=== PATIENT | female | born 1945 | race Caucasian/White ===

== ENCOUNTER 2018-11-09 14:14 | Observation (INO) | payer MEDICARE, BC ==
--- NOTE | 2018-11-09 14:57 | ED ---
General Adult HPI - General Source: patient Mode of arrival: ambulatory Limitations: no limitations <Chris Bravo - Last Filed: 11/09/18 16:58> <Adrian Jo - Last Filed: 11/09/18 18:13> - General Chief complaint: Psychiatric Symptoms Stated complaint: general - History of Present Illness Initial comments: Dictation was produced using [employer] dictation software. please excuse any grammatical, word or spelling errors. Chief Complaint: 73-year-old female with with no significant past medical history presents with altered mental status. History of Present Illness: Old female who is brought in by her daughter. Apparently according to note written by daughter patient has been having paranoid behavior for approximately 3 weeks. Patient has allegedly been hearing voices for approximately 2 weeks. She has not been using phones. She is worried somebody maybe listening. She is also saying that family members are however did not. She does not want to seek medical treatment of her patient was provided to get a checkup. Patient is not taking any medications. The ROS documented in this emergency department record has been reviewed and confirmed by me. Those systems with pertinent positive or negative responses have been documented in the HPI. All other systems are other negative and/or noncontributory. (Chris Bravo) - Related Data Home Medications Medication Instructions Recorded Confirmed Multivitamins, Thera [Multivitamin 1 tab PO DAILY 11/09/18 11/09/18 (formulary)] Allergies Allergy/AdvReac Type Severity Reaction Status Date / Time No Known Allergies Allergy Verified 11/09/18 16:18 Review of Systems ROS Other: All systems not noted in ROS Statement are negative. <Chris Bravo - Last Filed: 11/09/18 16:58> ROS Other: All systems not noted in ROS Statement are negative. <Adrian Jo - Last Filed: 11/09/18 18:13> ROS Statement: Those systems with pertinent positive or pertinent negative responses have been documented in the HPI. Past Medical History Past Medical History: Thyroid Disorder History of Any Multi-Drug Resistant Organisms: None Reported Past Surgical History: Appendectomy, Hysterectomy Past Psychological History: No Psychological Hx Reported Smoking Status: Current every day smoker Past Alcohol Use History: None Reported, Rare Past Drug Use History: None Reported <Chris Bravo - Last Filed: 11/09/18 16:58> General Exam Limitations: no limitations <Chris Bravo - Last Filed: 11/09/18 16:58> <Adrian Jo - Last Filed: 11/09/18 18:13> - General Exam Comments Initial Comments: PHYSICAL EXAM: General Impression: Alert and oriented x3, not in acute distress HEENT: Normocephalic atraumatic, extra-ocular movements intact, pupils equal and reactive to light bilaterally, mucous membranes moist. Cardiovascular: Heart regular rate and rhythm, S1&S2 audible, no murmurs, rubs or gallops Chest: Lungs clear to auscultation bilaterally, no rhonchi, no wheeze, no rales Abdomen: Bowel sounds present, abdomen soft, non-tender, non-distended, no organomegaly Musculoskeletal: Pulses present and equal in all extremities, no peripheral edema Motor: Power 5/5 bilaterally, no focal deficits noted Neurological: CN II-XII grossly intact, no focal motor or sensory deficits noted Skin: Intact with no visualized rashes (Chris Bravo) Vital Signs 11/09/18 14:26 Temperature 98.1 F Pulse Rate 77 Respiratory 18 Rate Blood Pressure 136/77 O2 Sat by Pulse 96 Oximetry Medical Decision Making - Lab Data Result diagrams: 11/09/18 15:21 11/09/18 15:21 <Chris Bravo - Last Filed: 11/09/18 16:58> - Lab Data Result diagrams: 11/09/18 15:21 11/09/18 15:21 - Radiology Data Radiology results: report reviewed (CT brain chest x-ray negative for acute disease), image reviewed <Adrian Jo - Last Filed: 11/09/18 18:13> - Medical Decision Making ED course: 73-year-old female presents with paranoid behavior. As upon arrival are within acceptable limits.Laboratory evaluation obtained. CBC unremarkable, metabolic panel remarkable, rapid urine drug screen negative, serum alcohol negative. Urinalysis shows 25 WBCs. There is rare bacteria. Patient not having any urinary symptoms. Urine sent for culture. Computed tomography scan of the head and chest x-ray shows no acute processes. Patient medically cleared for EPS evaluation. Patient has no complaints at this time. Patient not displaying any paranoid behavior to me. Daughter understands that if she wants oral EPS evaluation against patient's will that dictation will need to be signed. An attempt is made with EPS to perform evaluation with patient cooperation. Patient care sent out to oncoming physician for follow-up of EPS recommendations. EKG interpretation: Ventricular rate 72, normal sinus rhythm,. Interval 136, QS 80, QTc 427. No [place] prolongation, no QTC prolongation, no ST or T-wave changes noted. . Overall, this EKG is unremarkable (Chris Bravo) 73 female the ER for evaluation with altered mental status. Patient brought in for acute psychosis has urinary tract infection we'll treat UTI and monitor mental state. Patient to be admitted (Adrian Jo) - Lab Data Lab Results 11/09/18 11/09/18 11/09/18 Range/Units 15:21 15:21 15:21 WBC 6.9 (3.8-10.6) k/uL RBC 5.10 (3.80-5.40) m/uL Hgb 15.5 (11.4-16.0) gm/dL Hct 46.9 H (34.0-46.0) % MCV 91.9 (80.0-100.0) fL MCH 30.5 (25.0-35.0) pg MCHC 33.1 (31.0-37.0) g/dL RDW 13.2 (11.5-15.5) % Plt Count 282 (150-450) k/uL Neutrophils % 59 % Lymphocytes % 31 % Monocytes % 6 % Eosinophils % 1 % Basophils % 1 % Neutrophils # 4.1 (1.3-7.7) k/uL Lymphocytes # 2.1 (1.0-4.8) k/uL Monocytes # 0.4 (0-1.0) k/uL Eosinophils # 0.1 (0-0.7) k/uL Basophils # 0.0 (0-0.2) k/uL Sodium 139 (137-145) mmol/L Potassium 3.9 (3.5-5.1) mmol/L Chloride 103 (98-107) mmol/L Carbon Dioxide 24 (22-30) mmol/L Anion Gap 12 mmol/L BUN 11 (7-17) mg/dL Creatinine 0.63 (0.52-1.04) mg/dL Est GFR (CKD-EPI)AfAm >90 (>60 ml/min/1.73 sqM) Est GFR (CKD-EPI)NonAf 90 (>60 ml/min/1.73 sqM) Glucose 90 (74-99) mg/dL Calcium 9.8 (8.4-10.2) mg/dL TSH 3.140 (0.465-4.680) mIU/L Urine Color Urine Appearance (Clear) Urine pH (5.0-8.0) Ur Specific [place] (1.001-1.035) Urine Protein (Negative) Urine Glucose (UA) (Negative) Urine Ketones (Negative) Urine Blood (Negative) Urine Nitrite (Negative) Urine Bilirubin (Negative) Urine Urobilinogen (<2.0) mg/dL Ur Leukocyte Esterase (Negative) Urine RBC (0-5) /hpf Urine WBC (0-5) /hpf Ur Squamous Epith Cells (0-4) /hpf Urine Bacteria (None) /hpf Hyaline Casts (0-2) /lpf Urine Mucus (None) /hpf Urine Opiates Screen (NotDetected) Ur Oxycodone Screen (NotDetected) Urine Methadone Screen (NotDetected) Ur Propoxyphene Screen (NotDetected) Ur Barbiturates Screen (NotDetected) U Tricyclic Antidepress (NotDetected) Ur Phencyclidine Scrn (NotDetected) Ur Amphetamines Screen (NotDetected) U Methamphetamines Scrn (NotDetected) U Benzodiazepines Scrn (NotDetected) Urine Cocaine Screen (NotDetected) U Marijuana (THC) Screen (NotDetected) Serum Alcohol <10 mg/dL 11/09/18 Range/Units 15:36 WBC (3.8-10.6) k/uL RBC (3.80-5.40) m/uL Hgb (11.4-16.0) gm/dL Hct (34.0-46.0) % MCV (80.0-100.0) fL MCH (25.0-35.0) pg MCHC (31.0-37.0) g/dL RDW (11.5-15.5) % Plt Count (150-450) k/uL Neutrophils % % Lymphocytes % % Monocytes % % Eosinophils % % Basophils % % Neutrophils # (1.3-7.7) k/uL Lymphocytes # (1.0-4.8) k/uL Monocytes # (0-1.0) k/uL Eosinophils # (0-0.7) k/uL Basophils # (0-0.2) k/uL Sodium (137-145) mmol/L Potassium (3.5-5.1) mmol/L Chloride (98-107) mmol/L Carbon Dioxide (22-30) mmol/L Anion Gap mmol/L BUN (7-17) mg/dL Creatinine (0.52-1.04) mg/dL Est GFR (CKD-EPI)AfAm (>60 ml/min/1.73 sqM) Est GFR (CKD-EPI)NonAf (>60 ml/min/1.73 sqM) Glucose (74-99) mg/dL Calcium (8.4-10.2) mg/dL TSH (0.465-4.680) mIU/L Urine Color Yellow Urine Appearance Cloudy H (Clear) Urine pH 5.5 (5.0-8.0) Ur Specific [place] 1.016 (1.001-1.035) Urine Protein Trace H (Negative) Urine Glucose (UA) Negative (Negative) Urine Ketones 2+ H (Negative) Urine Blood Trace H (Negative) Urine Nitrite Negative (Negative) Urine Bilirubin Negative (Negative) Urine Urobilinogen 2.0 (<2.0) mg/dL Ur Leukocyte Esterase Moderate H (Negative) Urine RBC 4 (0-5) /hpf Urine WBC 25 H (0-5) /hpf Ur Squamous Epith Cells 10 H (0-4) /hpf Urine Bacteria Rare H (None) /hpf Hyaline Casts 73 H (0-2) /lpf Urine Mucus Moderate H (None) /hpf Urine Opiates Screen Not Detected (NotDetected) Ur Oxycodone Screen Not Detected (NotDetected) Urine Methadone Screen Not Detected (NotDetected) Ur Propoxyphene Screen Not Detected (NotDetected) Ur Barbiturates Screen Not Detected (NotDetected) U Tricyclic Antidepress Not Detected (NotDetected) Ur Phencyclidine Scrn Not Detected (NotDetected) Ur Amphetamines Screen Not Detected (NotDetected) U Methamphetamines Scrn Not Detected (NotDetected) U Benzodiazepines Scrn Not Detected (NotDetected) Urine Cocaine Screen Not Detected (NotDetected) U Marijuana (THC) Screen Not Detected (NotDetected) Serum Alcohol mg/dL Disposition <Chris Bravo - Last Filed: 11/09/18 16:58> <Adrian Jo - Last Filed: 11/09/18 18:13> Clinical Impression: Acute psychosis, UTI (urinary tract infection), Altered mental state Disposition: ADMITTED IP TO THIS HOSP Condition: Good Referrals: None,Stated [Primary Care Provider] - 1-2 days
[2018-11-09 15:33] LABS: Basophils % (A) 1 %; Eosinophils # (A) 0.1 k/uL (0-0.7); Eosinophils % (A) 1 %; HCT 46.9 % (34.0-46.0); HGB 15.5 gm/dL (11.4-16.0); Lymphocytes # (A) 2.1 k/uL (1.0-4.8); Lymphocytes % (A) 31 %; MCH 30.5 pg (25.0-35.0); MCHC 33.1 g/dL (31.0-37.0); MCV 91.9 fL (80.0-100.0); Mean Platelet Volume 6.7; Monocytes # (A) 0.4 k/uL (0-1.0); Monocytes % (A) 6 %; Neutrophils # (A) 4.1 k/uL (1.3-7.7); Neutrophils % (A) 59 %; Platelet Count 282 k/uL (150-450); RDW 13.2 % (11.5-15.5); WBC 6.9 k/uL (3.8-10.6)
--- NOTE | 2018-11-09 15:40 | XR ---
EXAMINATION TYPE: XR chest 2V DATE OF EXAM: 11/09/2018 COMPARISON: NONE HISTORY: Chest pain. TECHNIQUE: Frontal and lateral views of the chest are obtained. FINDINGS: There is no focal air space opacity, pleural effusion, or pneumothorax seen. The cardiac silhouette size is within normal limits. The osseous structures are intact. IMPRESSION: No acute cardiopulmonary process.
[2018-11-09 15:47] LABS: Alcohol <10 mg/dL; Anion Gap 12 mmol/L; Blood Urea Nitrogen 11 mg/dL (7-17); Calcium 9.8 mg/dL (8.4-10.2); Carbon Dioxide 24 mmol/L (22-30); Chloride 103 mmol/L (98-107); Glucose 90 mg/dL (74-99); Potassium 3.9 mmol/L (3.5-5.1); Sodium 139 mmol/L (137-145)
--- NOTE | 2018-11-09 15:52 | CT ---
EXAMINATION TYPE: CT brain wo con DATE OF EXAM: 11/09/2018 HISTORY: Altered mental status x [address] DLP: 1095.4 mGycm. Automated Exposure Control for Dose Reduction was Utilized. TECHNIQUE: CT scan of the head is performed without contrast. COMPARISON: None. FINDINGS: There is no acute intracranial hemorrhage or midline shift identified. Ventricles and sul ci are normal in size. Gonzalez-white matter differentiation is maintained. The globes are intact and th e visualized sinuses are clear. The calvarium is intact. IMPRESSION: No acute intracranial hemorrhage or midline shift. Unremarkable study.
[2018-11-09 15:59] LABS: Appearance,Urine Cloudy (Clear); Bacteria,Urine Rare /hpf; Bilirubin,Urine Negative (Negative); Blood,Urine Trace (Negative); Color,Urine Yellow; Glucose,Urine (UA) Negative (Negative); Hyaline Casts,Urine 73 /lpf (0-2); Ketones,Urine 2+ (Negative); Leukocyte Esterase,Urine Moderate (Negative); Mucus,Urine Moderate /hpf; Nitrite,Urine Negative (Negative); PH, Urine 5.5 (5.0-8.0); Protein,Urine Trace (Negative); RBC,Urine 4 /hpf (0-5); Specific Gravity,Urine 1.016 (1.001-1.035); Squamous Epithelial Cell,Urine 10 /hpf (0-4); WBC,Urine 25 /hpf (0-5)
[2018-11-09 16:04] LABS: Amphetamine Screen,Urine Not Detected (NotDetected); Barbiturate Screen,Urine Not Detected (NotDetected); Benzodiazepines Screen,Urine Not Detected (NotDetected); Cocaine Screen,Urine Not Detected (NotDetected); Methadone Screen, Urine Not Detected (NotDetected); Opiate Screen,Urine Not Detected (NotDetected); Oxycodone Screen, Urine Not Detected (NotDetected); Phencyclidine Screen,Urine Not Detected (NotDetected); Tricyclic Antidepressant,Urine Not Detected (NotDetected); Urn Cannabinoid Scrn Not Detected (NotDetected)
[2018-11-09] MEDS ORDERED: cefTRIAXone 2,000 MG in SODIUM CHLORIDE 0.9% 100 ML IVPB STA (18:05)
[2018-11-09] MEDS ORDERED: SODIUM CHLORIDE 0.9% 1,000 ML IV ONE (18:06)
[2018-11-09 20:33] VITALS: RESP 16
[2018-11-10] MEDS ORDERED: NALOXONE 0.4 MG/ML 1 ML VIAL IV PRN (00:33)
--- NOTE | 2018-11-10 00:41 | P.HPIM ---
History of Present Illness H&P Date: 11/09/18 Chief Complaint: auditory hallucination 73-year-old female with no significant past medical history. Patient doesn't have a regular doctor. Patient was brought into the hospital due to confusion. History was obtained by talking to the patient and her daughter. It seems like the patient has been having auditory hallucinations for around a month now where she claims that she is hearing her niece talking to her about certain family situation does not have any yet but it might happen like abducting her kids. And then she refers to some machine that's causing these voices. Patient believes that he is voices are real but denies any suicidal or homicidal ideation. She has never acted upon any of these voices when they tell her to do things. She has never been diagnosed with any mental health problems. Patient was initially reluctant for mental health evaluation due to concerns regarding driving and consent as she thought she might lose dose. But then later she was agreeable for psychiatry evaluation if needed. Patient denies any physical symptoms or complaints she denies any urinary symptoms, she denies any chest pain trouble breathing any headache changes in vision she denies any dizziness lightheadedness denies any abdominal pain nausea or vomiting. In the ER she was diagnosed with UTI and was given a dose of Rocephin, however her urine sample is dirty and was not clean-catch and patient denies any urinary symptoms. Rocephin will not be continued this for. Follow-up urine culture Review of Systems Pertinent positives as noted in HPI. All other systems were reviewed and are negative Past Medical History Past Medical History: Thyroid Disorder Additional Past Medical History / Comment(s): bronchitis, vit b deficiency, stage 3 cervical cancer-sx only, in past took meds for thyroid but was taken off it 15 years ago, upper/lower dental bridges History of Any Multi-Drug Resistant Organisms: None Reported Past Surgical History: Appendectomy, Hysterectomy Past Anesthesia/Blood Transfusion Reactions: No Reported Reaction Past Psychological History: No Psychological Hx Reported Smoking Status: Current some day smoker Past Alcohol Use History: Rare Additional Past Alcohol Use History / Comment(s): started smoking at age 36 a pack will last 2 weeks Past Drug Use History: None Reported - Past Family History Mother Family Medical History: Cancer Additional Family Medical History / Comment(s): colon cancer Father Family Medical History: Cancer Additional Family Medical History / Comment(s): lung cancer Medications and Allergies Home Medications Medication Instructions Recorded Confirmed Type Multivitamins, Thera [Multivitamin 1 tab PO DAILY 11/09/18 11/09/18 History (formulary)] Allergies Allergy/AdvReac Type Severity Reaction Status Date / Time No Known Allergies Allergy Verified 11/09/18 16:18 Physical Exam Vitals: Vital Signs Temp Pulse Pulse Resp BP BP Pulse Ox 11/09/18 23:00 98.0 F 86 16 118/70 93 L 11/09/18 20:32 98.1 F 77 16 146/79 95 11/09/18 18:54 97.9 F 75 18 144/73 95 11/09/18 14:26 98.1 F 77 18 136/77 96 Intake and Output 11/09/18 11/09/18 11/10/18 14:59 22:59 06:59 Intake Total 400 Balance 400 Intake: Oral 400 Other: # Voids 2 Weight 70.307 kg 67.5 kg Constitutional: No acute distress, conversant, pleasant Eyes: Anicteric sclerae, moist conjunctiva, no lid-lag Pupils equal round reactive to light ENMT: NC/AT Oropharynx clear, no erythema, exudates Neck: Supple, FROM, no masses, or JVD No carotid bruits No thyromegaly Lungs: Clear to auscultation Clear to percussion Normal respiratory effort, no accessory muscle use Cardiovascular: Heart regular in rate and rhythm, No murmurs, gallops, or rubs No peripheral edema Abdominal: Soft Nontender, no guarding, rebound or rigidity Abdomen moving with respiration Normoactive bowel sounds No hepatomegaly, No splenomegaly No palpable mass No abdominal wall hernia noted Skin: Normal temperature, tone, texture, turgor No induration No subcutaneous nodules No rash, lesions No ulcers Extremities: No digital cyanosis No clubbing Pedal pulses intact and symmetrical Radial pulses intact and symmetrical No calf tenderness Psychiatric: Alert and oriented to person, place and time Appropriate affect fair judgment Neuro Muscles Strength 5/5 in all 4 extremities Sensation to light touch grossly present throughout Cranial nerves II-XII grossly intact No focal sensory deficits Lymphatics: no palpable cervical or supraclavicular , or inguinal lymph nodes Results CBC & Chem 7: 11/09/18 15:21 11/09/18 15:21 Labs: Abnormal Lab Results - Last 24 Hours (Table) 12/13/18 12/13/18 Range/Units 15:21 15:36 Hct 46.9 H (34.0-46.0) % Urine Appearance Cloudy H (Clear) Urine Protein Trace H (Negative) Urine Ketones 2+ H (Negative) Urine Blood Trace H (Negative) Ur Leukocyte Esterase Moderate H (Negative) Urine WBC 25 H (0-5) /hpf Ur Squamous Epith Cells 10 H (0-4) /hpf Urine Bacteria Rare H (None) /hpf Hyaline Casts 73 H (0-2) /lpf Urine Mucus Moderate H (None) /hpf Assessment and Plan Assessment: 73-year-old female with no significant past medical history admitted under observation for possible UTI with anticipated length of stay of less than 48 hours. Patient reported to me but a hallucination and the daughter confirmed that that was the reason for bringing her to the hospital due to auditory hallucinations and some confusion. Upon reviewing patient labs and interviewing the patient I do not think the patient has urinary tract infection , her urine sample was not clean catch. She received a dose of Rocephin in the ER. I will discontinue that and wait for final urine culture. We'll also monitor the patient for any symptoms of fevers or any elevated white count. Patient will benefit from psychiatry evaluation Plan: Auditory hallucinations Psych eval Fall precautions Patient denies any suicidal or homicidal ideation Suspected UTI Urine sample was not a clean catch Await final urine culture results No leukocytosis no fever Patient received 1 dose of Rocephin, will be discontinued Continue to monitor patient for now Patient is completely asymptomatic denies any urinary symptoms DVT prophylaxis Lovenox subcu Surrogate decision-maker: Patient daughter CODE STATUS: Full code Discussed with: Patient, ER, RN Anticipated discharge: <[address]: Pending psych eval A total of 60 minutes was spent on the care of this complex patient more than 50 % of the time was spent in counseling and care coordination.
[2018-11-10 06:21] VITALS: BP 131/74; PULSE 76; TEMP 97.6
[2018-11-10] MEDS ORDERED: ENOXAPARIN 40 MG/0.4 ML SYRINGE SQ SCH (09:00)
--- NOTE | 2018-11-10 12:57 | P.CN ---
Psychiatric Consult - . Consult date: 11/10/18 Consult:: 11/10/18 12:31 hallucinations Assessment and Plan Assessment: 73-year-old female with no significant past medical history. Patient doesn't have a regular doctor. Patient was brought into the hospital due to confusion. History was obtained by talking to the patient and her daughter. It seems like the patient has been having auditory hallucinations for around a month now where she claims that she is hearing her niece talking to her about certain family situation does not have any yet but it might happen like abducting her kids. And then she refers to some machine that's causing these voices. Patient believes that he is voices are real but denies any suicidal or homicidal ideation. She has never acted upon any of these voices when they tell her to do things. She has never been diagnosed with any mental health problems. Patient was initially reluctant for mental health evaluation due to concerns regarding driving and consent as she thought she might lose dose. But then later she was agreeable for psychiatry evaluation if needed. Patient denies any physical symptoms or complaints she denies any urinary symptoms, she denies any chest pain trouble breathing any headache changes in vision she denies any dizziness lightheadedness denies any abdominal pain nausea or vomiting. In the ER she was diagnosed with UTI and was given a dose of Rocephin, however her urine sample is dirty and was not clean-catch and patient denies any urinary symptoms. Rocephin will not be continued this for. Follow-up urine culture Past Medical History Past Medical History: Thyroid Disorder Additional Past Medical History / Comment(s): bronchitis, vit b deficiency, stage 3 cervical cancer-sx only, in past took meds for thyroid but was taken off it 15 years ago, upper/lower dental bridges History of Any Multi-Drug Resistant Organisms: None Reported Past Surgical History: Appendectomy, Hysterectomy Past Anesthesia/Blood Transfusion Reactions: No Reported Reaction Past Psychological History: No Psychological Hx Reported Smoking Status: Current some day smoker Past Alcohol Use History: Rare Additional Past Alcohol Use History / Comment(s): started smoking at age 36 a pack will last 2 weeks Past Drug Use History: None Reported - Past Family History Mother Family Medical History: Cancer Additional Family Medical History / Comment(s): colon cancer Father Family Medical History: Cancer Additional Family Medical History / Comment(s): lung cancer Medications and Allergies Home Medications Medication Instructions Recorded Confirmed Type Multivitamins, Thera [Multivitamin 1 tab PO DAILY 11/09/18 11/09/18 History (formulary)] Allergies Allergy/AdvReac Type Severity Reaction Status Date / Time No Known Allergies Allergy Verified 11/09/18 16:18 Mental Status Examination - The patient presents alert, pleasant, and cooperative. There calmly seated without any agitated behavior. [She] reports that [her] mood is good. Affect is congruent and euthymic. [She] deny having any suicidal or homicidal ideation intent or plan. [She] denies any auditory or visual hallucinations. There is no evidence of any delusional thought content. [Her] thought process is linear and goal-directed. [Her] speech is fluent and nonpressured. [Her] memory and concentration is grossly intact for the purposes of this session. Psychiatric impression: Delirium primarily due to urinary tract infection which has cleared now Psychiatric recommendations: No psychiatric medications indicated at this time. The filling in the treatment of urinary tract infection for further resolve any confusion this woman may have but one I interviewed her she was oriented person place and time not suicidal or homicidal. When medically stable she may be discharged from a psychiatric standpoint Thank you for the consult Rom Middleton D.O. PhD (1) Hallucinations Current Visit: Yes Status: Resolved Code(s): R44.3 - HALLUCINATIONS, UNSPECIFIED SNOMED Code(s): 0672044 Time with Patient: Less than 30
--- NOTE | 2018-11-10 13:17 | P.DS ---
Providers Date of admission: 11/09/18 18:12 Expected date of discharge: 11/10/18 Attending physician: Teodoro Mace MD Consults: 11/10/18 00:34 Consult Physician Routine Consulting Provider: Rom Middleton Consult Reason/Comments: auditory hallucination Do you want consulting provider notified?: Yes Primary care physician: Stated None Hospital Course: This is a 73-year-old female with no significant past medical history who presented to the hospital with intermittent hallucination for the past 1 month and reporting that she is hearing her niece voice in her right ear. Patient was brought in by her daughter to the emergency room. In the emergency room patient was found to be hemodynamically stable. Initial urinalysis was positive that he was a grossly contaminated sample. This was not a clean catch urine. Patient was given one-time dose of Rocephin. Urine culture sent and pending. Patient was admitted to the hospital for further evaluation. Most of her lab work was within acceptable range. Patient was seen and evaluated by psychiatry and was cleared for discharge. I discussed with her daughter over the phone the patient's condition. Patient is not a risk to wander and does not represent any risk to herself. She will be discharged home in a stable condition. She will finish 3 days course of Keflex as a precaution even though it's very highly unlikely that the patient has a UTI given no fever and no leukocytosis and no symptoms. She will be discharged in a stable condition. Please refer to the electronic chart for further details about this hospitalization. Patient Condition at Discharge: Fair Plan - Discharge Summary New Discharge Prescriptions: New Cephalexin [Keflex] 500 mg PO Q8HR #9 cap No Action Multivitamins, Thera [Multivitamin (formulary)] 1 tab PO DAILY Discharge Medication List Multivitamins, Thera [Multivitamin (formulary)] 1 tab PO DAILY 11/09/18 [History ] Cephalexin [Keflex] 500 mg PO Q8HR #9 cap 11/10/18 [Rx] Follow up Appointment(s)/Referral(s): None,Stated [Primary Care Provider] - 3 Days Discharge Disposition: HOME SELF-CARE
== END 2018-11-10 14:09 | disposition home or self-care (01) ==
LOC: EC 14:14 → 4MS4W 18:12
PROVIDERS: ADMIT Family Medicine; ATTEND Family Medicine
DX: F05 Delirium due to known physiological condition (principal); N39.0 Urinary tract infection, site not specified; R44.0 Auditory hallucinations; E07.9 Disorder of thyroid, unspecified; F17.210 Nicotine dependence, cigarettes, uncomplicated; E53.9 Vitamin B deficiency, unspecified; Z90.710 Acquired absence of both cervix and uterus; Z90.49 Acquired absence of other specified parts of digestive tract; Z87.09 Personal history of other diseases of the respiratory system; Z85.41 Personal history of malignant neoplasm of cervix uteri; Z80.0 Family history of malignant neoplasm of digestive organs; Z80.1 Family history of malignant neoplasm of trachea, bronchus and lung
CPT/HCPCS: 96361 ×2; 96366; 96372; 96365; 99285; 36415; 93005; 80048; 84443; 85025; 81001; 87040; 80306; 87086; 71046; 70450; G0378 ×2; G0480; J0696; J1650; 80320

== ENCOUNTER 2019-02-15 17:16 | Inpatient (IN) | payer MEDICARE, BC ==
[2019-02-15 17:51] LABS: Appearance,Urine Clear (Clear); Bilirubin,Urine Negative (Negative); Blood,Urine Negative (Negative); Color,Urine Light Yellow; Glucose,Urine (UA) Negative (Negative); Ketones,Urine Negative (Negative); Leukocyte Esterase,Urine Negative (Negative); Nitrite,Urine Negative (Negative); Protein,Urine Negative (Negative); Specific Gravity,Urine 1.004 (1.001-1.035); Urobilinogen,Urine <2.0 mg/dL (<2.0)
[2019-02-15 18:01] LABS: Amphetamine Screen,Urine Not Detected (NotDetected); Barbiturate Screen,Urine Not Detected (NotDetected); Benzodiazepines Screen,Urine Not Detected (NotDetected); Cocaine Screen,Urine Not Detected (NotDetected); Methadone Screen, Urine Not Detected (NotDetected); Opiate Screen,Urine Not Detected (NotDetected); Oxycodone Screen, Urine Not Detected (NotDetected); Phencyclidine Screen,Urine Not Detected (NotDetected); Tricyclic Antidepressant,Urine Not Detected (NotDetected); Urn Cannabinoid Scrn Not Detected (NotDetected)
--- NOTE | 2019-02-15 18:07 | ED ---
Psych HPI - General Chief Complaint: Psychiatric Symptoms Stated Complaint: mental health Time Seen by Provider: 02/15/19 17:31 Source: police, RN notes reviewed, old records reviewed Mode of arrival: ambulatory - History of Present Illness Initial Comments: This is a 73-year-old female with a prior history of admission for altered mental status secondary to UTI who is brought in under petition with family complaints of the patient being paranoid and delusional she apparently is paranoid that area observed going to kill her she also apparently was talking to her who is dad indication of her home. She was found in her neighbors living room and was not invited in. A petition was filed by the patient's family. She does not know why she is here she denies any complaints fevers chills nausea vomiting sweats chest pain she also states her is nothing wrong with her and doesn't understand why she has been hospital. No reports of cough or phlegm production or dysuria. No other modifying factors at this time. Family the patient does have a history of smoking is unclear whether she does still smoke MD Complaint: altered mental status - Related Data Home Medications Medication Instructions Recorded Confirmed Multivitamins, Thera [Multivitamin 1 tab PO DAILY 11/09/18 02/15/19 (formulary)] Allergies Allergy/AdvReac Type Severity Reaction Status Date / Time No Known Allergies Allergy Verified 02/15/19 18:42 Review of Systems ROS Statement: Those systems with pertinent positive or pertinent negative responses have been documented in the HPI. ROS Other: All systems not noted in ROS Statement are negative. Limitations: ROS unobtainable due to patients medical condition Past Medical History Past Medical History: Thyroid Disorder Additional Past Medical History / Comment(s): bronchitis, vit b deficiency, stage 3 cervical cancer-sx only, in past took meds for thyroid but was taken off it 15 years ago, upper/lower dental bridges History of Any Multi-Drug Resistant Organisms: None Reported Past Surgical History: Appendectomy, Hysterectomy Past Anesthesia/Blood Transfusion Reactions: No Reported Reaction Smoking Status: Current some day smoker Past Alcohol Use History: Rare Past Drug Use History: None Reported - Past Family History Mother Family Medical History: Cancer Additional Family Medical History / Comment(s): colon cancer Father Family Medical History: Cancer Additional Family Medical History / Comment(s): lung cancer General Exam - General Exam Comments Initial Comments: Physical well-developed well-nourished awake alert female she does seem somewhat confused Limitations: no limitations General appearance: alert, in no apparent distress Head exam: Present: atraumatic, normocephalic, normal inspection Eye exam: Present: normal appearance, PERRL, EOMI. Absent: scleral icterus, conjunctival injection, periorbital swelling ENT exam: Present: mucous membranes dry Neck exam: Present: normal inspection. Absent: tenderness, meningismus, lymphadenopathy Respiratory exam: Present: normal lung sounds bilaterally. Absent: respiratory distress, wheezes, rales, rhonchi, stridor Cardiovascular Exam: Present: normal rhythm, tachycardia, normal heart sounds. Absent: systolic murmur, diastolic murmur, rubs, gallop, clicks GI/Abdominal exam: Present: soft, normal bowel sounds. Absent: distended, tenderness, guarding, rebound, rigid Extremities exam: Present: normal inspection, full ROM, normal capillary refill. Absent: tenderness, pedal edema, joint swelling, calf tenderness Back exam: Present: normal inspection Neurological exam: Present: alert, oriented X3, CN II-XII intact Psychiatric exam: Present: normal affect, normal mood Skin exam: Present: warm, dry, intact, normal color. Absent: rash Course Vital Signs 02/15/19 17:31 Temperature 97.9 F Pulse Rate 118 H Respiratory 20 Rate Blood Pressure 160/101 O2 Sat by Pulse 95 Oximetry - Reevaluation(s) Reevaluation #1: 02/15/19 21:20 The patient was medically cleared and evaluated by the psychiatric service patient will be admitted for inpatient treatment of acute psychosis. Medical Decision Making - Lab Data Result diagrams: 02/15/19 18:13 02/15/19 18:13 Lab Results 02/15/19 02/15/19 02/15/19 Range/Units 17:27 18:13 18:13 WBC 8.3 (3.8-10.6) k/uL RBC 5.13 (3.80-5.40) m/uL Hgb 15.6 (11.4-16.0) gm/dL Hct 47.0 H (34.0-46.0) % MCV 91.7 (80.0-100.0) fL MCH 30.4 (25.0-35.0) pg MCHC 33.1 (31.0-37.0) g/dL RDW 13.4 (11.5-15.5) % Plt Count 287 (150-450) k/uL Neutrophils % 76 % Lymphocytes % 17 % Monocytes % 5 % Eosinophils % 1 % Basophils % 0 % Neutrophils # 6.3 (1.3-7.7) k/uL Lymphocytes # 1.4 (1.0-4.8) k/uL Monocytes # 0.4 (0-1.0) k/uL Eosinophils # 0.1 (0-0.7) k/uL Basophils # 0.0 (0-0.2) k/uL Sodium 138 (137-145) mmol/L Potassium 4.0 (3.5-5.1) mmol/L Chloride 102 (98-107) mmol/L Carbon Dioxide 26 (22-30) mmol/L Anion Gap 10 mmol/L BUN 10 (7-17) mg/dL Creatinine 0.52 (0.52-1.04) mg/dL Est GFR (CKD-EPI)AfAm >90 (>60 ml/min/1.73 sqM) Est GFR (CKD-EPI)NonAf >90 (>60 ml/min/1.73 sqM) Glucose 120 H (74-99) mg/dL Calcium 9.8 (8.4-10.2) mg/dL Magnesium 2.1 (1.6-2.3) mg/dL Total Bilirubin 0.6 (0.2-1.3) mg/dL AST 25 (14-36) U/L ALT 22 (9-52) U/L Alkaline Phosphatase 89 (38-126) U/L Total Creatine Kinase (30-135) U/L CK-MB (CK-2) (0.0-2.4) ng/mL CK-MB (CK-2) Rel Index Troponin I (0.000-0.034) ng/mL Total Protein 7.6 (6.3-8.2) g/dL Albumin 4.5 (3.5-5.0) g/dL Urine Color Light Yellow Urine Appearance Clear (Clear) Urine pH 7.0 (5.0-8.0) Ur Specific [place] 1.004 (1.001-1.035) Urine Protein Negative (Negative) Urine Glucose (UA) Negative (Negative) Urine Ketones Negative (Negative) Urine Blood Negative (Negative) Urine Nitrite Negative (Negative) Urine Bilirubin Negative (Negative) Urine Urobilinogen <2.0 (<2.0) mg/dL Ur Leukocyte Esterase Negative (Negative) Urine Opiates Screen Not Detected (NotDetected) Ur Oxycodone Screen Not Detected (NotDetected) Urine Methadone Screen Not Detected (NotDetected) Ur Propoxyphene Screen Not Detected (NotDetected) Ur Barbiturates Screen Not Detected (NotDetected) U Tricyclic Antidepress Not Detected (NotDetected) Ur Phencyclidine Scrn Not Detected (NotDetected) Ur Amphetamines Screen Not Detected (NotDetected) U Methamphetamines Scrn Not Detected (NotDetected) U Benzodiazepines Scrn Not Detected (NotDetected) Urine Cocaine Screen Not Detected (NotDetected) U Marijuana (THC) Screen Not Detected (NotDetected) 02/15/19 Range/Units 18:13 WBC (3.8-10.6) k/uL RBC (3.80-5.40) m/uL Hgb (11.4-16.0) gm/dL Hct (34.0-46.0) % MCV (80.0-100.0) fL MCH (25.0-35.0) pg MCHC (31.0-37.0) g/dL RDW (11.5-15.5) % Plt Count (150-450) k/uL Neutrophils % % Lymphocytes % % Monocytes % % Eosinophils % % Basophils % % Neutrophils # (1.3-7.7) k/uL Lymphocytes # (1.0-4.8) k/uL Monocytes # (0-1.0) k/uL Eosinophils # (0-0.7) k/uL Basophils # (0-0.2) k/uL Sodium (137-145) mmol/L Potassium (3.5-5.1) mmol/L Chloride (98-107) mmol/L Carbon Dioxide (22-30) mmol/L Anion Gap mmol/L BUN (7-17) mg/dL Creatinine (0.52-1.04) mg/dL Est GFR (CKD-EPI)AfAm (>60 ml/min/1.73 sqM) Est GFR (CKD-EPI)NonAf (>60 ml/min/1.73 sqM) Glucose (74-99) mg/dL Calcium (8.4-10.2) mg/dL Magnesium (1.6-2.3) mg/dL Total Bilirubin (0.2-1.3) mg/dL AST (14-36) U/L ALT (9-52) U/L Alkaline Phosphatase (38-126) U/L Total Creatine Kinase 121 (30-135) U/L CK-MB (CK-2) 1.3 (0.0-2.4) ng/mL CK-MB (CK-2) Rel Index 1.1 Troponin I <0.012 (0.000-0.034) ng/mL Total Protein (6.3-8.2) g/dL Albumin (3.5-5.0) g/dL Urine Color Urine Appearance (Clear) Urine pH (5.0-8.0) Ur Specific [place] (1.001-1.035) Urine Protein (Negative) Urine Glucose (UA) (Negative) Urine Ketones (Negative) Urine Blood (Negative) Urine Nitrite (Negative) Urine Bilirubin (Negative) Urine Urobilinogen (<2.0) mg/dL Ur Leukocyte Esterase (Negative) Urine Opiates Screen (NotDetected) Ur Oxycodone Screen (NotDetected) Urine Methadone Screen (NotDetected) Ur Propoxyphene Screen (NotDetected) Ur Barbiturates Screen (NotDetected) U Tricyclic Antidepress (NotDetected) Ur Phencyclidine Scrn (NotDetected) Ur Amphetamines Screen (NotDetected) U Methamphetamines Scrn (NotDetected) U Benzodiazepines Scrn (NotDetected) Urine Cocaine Screen (NotDetected) U Marijuana (THC) Screen (NotDetected) Disposition Clinical Impression: Acute psychosis Disposition: TRANSFER TO PSYCH HOSP/UNIT Condition: Stable Referrals: None,Stated [Primary Care Provider] - 1-2 days
--- NOTE | 2019-02-15 18:19 | CT ---
EXAMINATION TYPE: CT brain wo con DATE OF EXAM: 02/15/2019 COMPARISON: 11/09/2018 HISTORY: Confusion CT DLP: 1099.4 mGycm Automated exposure control for dose reduction was used. FINDINGS: Ventricles of normal size. There is no mass effect nor midline shift. There is no sign of intracrania l hemorrhage. The calvarium is intact. IMPRESSION: NEGATIVE CT SCAN OF THE BRAIN. NO CHANGE.
--- NOTE | 2019-02-15 18:19 | XR ---
EXAMINATION TYPE: XR chest 2V DATE OF EXAM: 02/15/2019 COMPARISON: 11/09/2018 HISTORY: Altered mental status TECHNIQUE: Frontal and lateral views of the chest are obtained. FINDINGS: Heart and mediastinum are normal. Lungs are clear. Diaphragm is normal. Bony thorax is int act. IMPRESSION: Normal chest. No change.
[2019-02-15 18:27] LABS: Basophils % (A) 0 %; Eosinophils # (A) 0.1 k/uL (0-0.7); Eosinophils % (A) 1 %; HGB 15.6 gm/dL (11.4-16.0); Lymphocytes # (A) 1.4 k/uL (1.0-4.8); Lymphocytes % (A) 17 %; MCH 30.4 pg (25.0-35.0); MCHC 33.1 g/dL (31.0-37.0); MCV 91.7 fL (80.0-100.0); Mean Platelet Volume 6.2; Monocytes # (A) 0.4 k/uL (0-1.0); Monocytes % (A) 5 %; Neutrophils # (A) 6.3 k/uL (1.3-7.7); Neutrophils % (A) 76 %; Platelet Count 287 k/uL (150-450); RBC 5.13 m/uL (3.80-5.40); RDW 13.4 % (11.5-15.5); WBC 8.3 k/uL (3.8-10.6)
[2019-02-15 18:35] LABS: Creatine Kinase 121 U/L (30-135)
[2019-02-15 18:37] LABS: ALT 22 U/L (9-52); AST 25 U/L (14-36); Albumin 4.5 g/dL (3.5-5.0); Alkaline Phosphatase 89 U/L (38-126); Anion Gap 10 mmol/L; Blood Urea Nitrogen 10 mg/dL (7-17); Calcium 9.8 mg/dL (8.4-10.2); Carbon Dioxide 26 mmol/L (22-30); Chloride 102 mmol/L (98-107); Glucose 120 mg/dL (74-99); Magnesium 2.1 mg/dL (1.6-2.3); Sodium 138 mmol/L (137-145); Total Bilirubin 0.6 mg/dL (0.2-1.3); Total Protein 7.6 g/dL (6.3-8.2)
[2019-02-15 18:48] LABS: Creatine Kinase MB 1.3 ng/mL (0.0-2.4); Troponin I <0.012 ng/mL (0.000-0.034)
[2019-02-15] MEDS ORDERED: MAGNESIUM HYDROXIDE 2,400 MG/10 ML CUP PO PRN (22:05)
[2019-02-15] MEDS ORDERED: MAG HYDROX/AL HYDROX/SIMETH 30 ML CUP PO PRN (22:05)
[2019-02-15] MEDS ORDERED: ACETAMINOPHEN TAB 325 MG TAB PO PRN (22:05)
[2019-02-15] MEDS ORDERED: LORazepam 1 MG TAB PO PRN (22:05)
[2019-02-15] MEDS ORDERED: LORazepam 2 MG/ML INJ IM PRN (22:17)
[2019-02-16] MEDS: NICOTINE 7MG/24HR PATCH TRANSDERM SCH (08:39)
[2019-02-16 08:44] LABS: Albumin 4.4 g/dL (3.5-5.0); Bilirubin, Delta 0.2 mg/dL (0.0-0.2); Bilirubin,Unconjugated 0.8 mg/dL (0.0-1.1); Total Protein 7.5 g/dL (6.3-8.2)
--- NOTE | 2019-02-16 10:02 | P.HP ---
Psychiatric H&P - . H&P Date: 02/16/19 History & Physical: Allergies Allergy/AdvReac Type Severity Reaction Status Date / Time No Known Allergies Allergy Verified 02/15/19 18:42 Vital Signs Temp 98.4 F 02/16/19 06:48 Pulse 95 02/16/19 06:48 Resp 16 02/16/19 06:48 BP 108/60 02/16/19 06:48 Pulse Ox 96 02/15/19 22:17 Intake & Output 02/15/19 02/16/19 02/16/19 18:59 06:59 18:59 Weight 67.132 kg Laboratory Last Values WBC 8.3 k/uL (3.8-10.6) 02/15/19 18:13 RBC 5.13 m/uL (3.80-5.40) 02/15/19 18:13 Hgb 15.6 gm/dL (11.4-16.0) 02/15/19 18:13 Hct 47.0 % (34.0-46.0) H 02/15/19 18:13 MCV 91.7 fL (80.0-100.0) 02/15/19 18:13 MCH 30.4 pg (25.0-35.0) 02/15/19 18:13 MCHC 33.1 g/dL (31.0-37.0) 02/15/19 18:13 RDW 13.4 % (11.5-15.5) 02/15/19 18:13 Plt Count 287 k/uL (150-450) 02/15/19 18:13 Neutrophils % 76 % 02/15/19 18:13 Lymphocytes % 17 % 02/15/19 18:13 Monocytes % 5 % 02/15/19 18:13 Eosinophils % 1 % 02/15/19 18:13 Basophils % 0 % 02/15/19 18:13 Neutrophils # 6.3 k/uL (1.3-7.7) 02/15/19 18:13 Lymphocytes # 1.4 k/uL (1.0-4.8) 02/15/19 18:13 Monocytes # 0.4 k/uL (0-1.0) 02/15/19 18:13 Eosinophils # 0.1 k/uL (0-0.7) 02/15/19 18:13 Basophils # 0.0 k/uL (0-0.2) 02/15/19 18:13 Sodium 138 mmol/L (137-145) 02/15/19 18:13 Potassium 4.0 mmol/L (3.5-5.1) 02/15/19 18:13 Chloride 102 mmol/L (98-107) 02/15/19 18:13 Carbon Dioxide 26 mmol/L (22-30) 02/15/19 18:13 Anion Gap 10 mmol/L 02/15/19 18:13 BUN 10 mg/dL (7-17) 02/15/19 18:13 Creatinine 0.52 mg/dL (0.52-1.04) 02/15/19 18:13 Est GFR (CKD-EPI)AfAm >90 (>60 ml/min/1.73 sqM) 02/15/19 18:13 Est GFR (CKD-EPI)NonAf >90 (>60 ml/min/1.73 sqM) 02/15/19 18:13 Glucose 120 mg/dL (74-99) H 02/15/19 18:13 Calcium 9.8 mg/dL (8.4-10.2) 02/15/19 18:13 Magnesium 2.1 mg/dL (1.6-2.3) 02/15/19 18:13 Total Bilirubin 1.0 mg/dL (0.2-1.3) 02/16/19 08:13 Conjugated Bilirubin 0.0 mg/dL (0.0-0.3) 02/16/19 08:13 Unconjugated Bilirubin 0.8 mg/dL (0.0-1.1) 02/16/19 08:13 Delta Bilirubin 0.2 mg/dL (0.0-0.2) 02/16/19 08:13 AST 25 U/L (14-36) 02/16/19 08:13 ALT 24 U/L (9-52) 02/16/19 08:13 Alkaline Phosphatase 94 U/L (38-126) 02/16/19 08:13 Total Creatine Kinase 121 U/L (30-135) 02/15/19 18:13 CK-MB (CK-2) 1.3 ng/mL (0.0-2.4) 02/15/19 18:13 CK-MB (CK-2) Rel Index 1.1 02/15/19 18:13 Troponin I <0.012 ng/mL (0.000-0.034) 02/15/19 18:13 Total Protein 7.5 g/dL (6.3-8.2) 02/16/19 08:13 Albumin 4.4 g/dL (3.5-5.0) 02/16/19 08:13 Triglycerides 81 mg/dL (<150) 02/16/19 08:13 Cholesterol 184 mg/dL (<200) 02/16/19 08:13 LDL Cholesterol, Calc 104 mg/dL (0-99) H 02/16/19 08:13 HDL Cholesterol 64 mg/dL (40-60) H 02/16/19 08:13 Urine Color Light Yellow 02/15/19 17:27 Urine Appearance Clear (Clear) 02/15/19 17:27 Urine pH 7.0 (5.0-8.0) 02/15/19 17:27 Ur Specific [place] 1.004 (1.001-1.035) 02/15/19 17:27 Urine Protein Negative (Negative) 02/15/19 17:27 Urine Glucose (UA) Negative (Negative) 02/15/19 17:27 Urine Ketones Negative (Negative) 02/15/19 17:27 Urine Blood Negative (Negative) 02/15/19 17:27 Urine Nitrite Negative (Negative) 02/15/19 17:27 Urine Bilirubin Negative (Negative) 02/15/19 17:27 Urine Urobilinogen <2.0 mg/dL (<2.0) 02/15/19 17:27 Ur Leukocyte Esterase Negative (Negative) 02/15/19 17:27 Urine Opiates Screen Not Detected (NotDetected) 02/15/19 17:27 Ur Oxycodone Screen Not Detected (NotDetected) 02/15/19 17:27 Urine Methadone Screen Not Detected (NotDetected) 02/15/19 17:27 Ur Propoxyphene Screen Not Detected (NotDetected) 02/15/19 17:27 Ur Barbiturates Screen Not Detected (NotDetected) 02/15/19 17:27 U Tricyclic Antidepress Not Detected (NotDetected) 02/15/19 17:27 Ur Phencyclidine Scrn Not Detected (NotDetected) 02/15/19 17:27 Ur Amphetamines Screen Not Detected (NotDetected) 02/15/19 17:27 U Methamphetamines Scrn Not Detected (NotDetected) 02/15/19 17:27 U Benzodiazepines Scrn Not Detected (NotDetected) 02/15/19 17:27 Urine Cocaine Screen Not Detected (NotDetected) 02/15/19 17:27 U Marijuana (THC) Screen Not Detected (NotDetected) 02/15/19 17:27 Assessment and Plan Assessment: This is a 73-year-old female with a prior history of admission for altered mental status secondary to UTI who is brought in under petition with family complaints of the patient being paranoid and delusional she apparently is paranoid that area observed going to kill her she also apparently was talking to her who is dad indication of her home. She was found in her neighbors living room and was not invited in. A petition was filed by the patient's family. She does not know why she is here she denies any complaints fevers chills nausea vomiting sweats chest pain she also states her is nothing wrong with her and doesn't understand why she has been hospital. No reports of cough or phlegm production or dysuria. No other modifying factors at this time. Family the patient does have a history of smoking is unclear whether she does still smoke MD Complaint: altered mental status - Related Data Home Medications Medication Instructions Recorded Confirmed Multivitamins, Thera [Multivitamin 1 tab PO DAILY 11/09/18 02/15/19 (formulary)] Allergies Allergy/AdvReac Type Severity Reaction Status Date / Time No Known Allergies Allergy Verified 02/15/19 18:42 Past Medical History Past Medical History: Thyroid Disorder Additional Past Medical History / Comment(s): bronchitis, vit b deficiency, stage 3 cervical cancer-sx only, in past took meds for thyroid but was taken off it 15 years ago, upper/lower dental bridges History of Any Multi-Drug Resistant Organisms: None Reported Past Surgical History: Appendectomy, Hysterectomy Past Anesthesia/Blood Transfusion Reactions: No Reported Reaction Smoking Status: Current some day smoker Past Alcohol Use History: Rare Past Drug Use History: None Reported Mental Status Examination - General Appearance: [ casual, appears younger than stated age] Speech/Language: [slow, mumbling, hesitant, monotone, soft] Attitude/Behavior: [ guarded, withdrawn, indifferent] Mood: [ anxious, Affect: [flat, blunted constricted] Orientation: [time, person, place situation] Thought Content: [wnl Risk Factors: [denies suicidal (ideations, plan), and/or Homicidal (ideations, plan), other] Perception: [wnl, hallucinations (auditory Thought Processes: [ concrete, circumstantial, Concentration/Attention Span: [wnl [Per observation and interview with the patient] Recent Memory: [wnl, Remote Memory: [wnl, ] [past events, as related history] Intelligence: [ average] [based on history, based on vocabulary, syntax, grammar, and content] Judgement: [fair] [per patient's behavior/history of present illness] Insight: [ fair] [understanding severity of illness/history of present illness] Diagnosis: acute psychosis Plan: medical, psychiatric , social, risperdal 0.25 mg po bid follow and observe 15 minute checks and usual protocol for the behavioral health unit. (1) Acute psychosis Current Visit: Yes Status: Acute Code(s): F23 - BRIEF PSYCHOTIC DISORDER SNOMED Code(s): 99182018 Time with Patient: Less than 30
[2019-02-16] MEDS: MULTIVITAMINS, THERA 1 EACH TAB PO SCH (12:44)
--- NOTE | 2019-02-16 15:51 | P.CONS ---
History of Present Illness - Reason for Consult Consult date: 02/16/19 - History of Present Illness Patient is a 73-year-old female with a PMH of hypothyroidism who presented to the ED under police custody after her family practitioner due to strange behavior. The patient was reported to be acting bizarre and was found at her neighbors living room. The patient does not recall the episode and feels that she was acting normally and was simply trying to see her friend, the neighbor. The patient otherwise denied any chronic medical conditions and notes that though she has hypothyroidism, she was previously taking Synthroid and had subsequently stopped upon discussion with her PMD. She denied any additional complaints including chest pain, shortness breath, nausea, vomiting, fever, ch ills, abdominal pain. She notes that she does not take any medications. Review of Systems Pertinent positives and negatives as discussed in HPI, a complete review of systems was performed and all other systems are negative. Past Medical History Past Medical History: Thyroid Disorder Additional Past Medical History / Comment(s): bronchitis, vit b deficiency, stage 3 cervical cancer-sx only, in past took meds for thyroid but was taken off it 15 years ago, upper/lower dental bridges History of Any Multi-Drug Resistant Organisms: None Reported Past Surgical History: Appendectomy, Hysterectomy Past Anesthesia/Blood Transfusion Reactions: No Reported Reaction Smoking Status: Current some day smoker Past Alcohol Use History: Rare Past Drug Use History: None Reported - Past Family History Mother Family Medical History: Cancer Additional Family Medical History / Comment(s): colon cancer Father Family Medical History: Cancer Additional Family Medical History / Comment(s): lung cancer Medications and Allergies Home Medications Medication Instructions Recorded Confirmed Type Multivitamins, Thera [Multivitamin 1 tab PO DAILY 11/09/18 02/15/19 History (formulary)] Allergies Allergy/AdvReac Type Severity Reaction Status Date / Time No Known Allergies Allergy Verified 02/15/19 18:42 Physical Exam Vitals: Vital Signs Temp Pulse Pulse Resp BP BP Pulse Ox 02/16/19 06:48 98.4 F 95 16 108/60 02/15/19 22:17 98.7 F 85 18 145/69 96 02/15/19 17:31 97.9 F 118 H 20 160/101 95 General: non toxic, no distress, appears at stated age, normal weight Derm: no unusual rashes/lesions no unusual ecchymoses, warm, dry Head: atraumatic, normocephalic, symmetric Eyes: EOMI, no lid lag, anicteric sclera, pupils equal round reactive to light ENT: Nose and ears atraumatic, no thrush, no pharyngeal erythema Neck: No thyromegaly, no cervical lymphadenopathy, trachea midline, supple Mouth: no lip lesion, mucus membranes moist Cardiovascular: S1S2 reg, no murmur, positive posterior tibial pulse bilateral, no edema, capillary refill less than 2 seconds Lungs: CTA bilateral, no rhonchi, no rales , no accessory muscle use Abdominal: soft, nontender to palpation, no guarding, no appreciable organomegaly, normal bowel sounds Ext: no gross muscle atrophy, muscle strength 5 out of 5 in all 4 extremities grossly, no contractures, Neuro: CN II-XI grossly intact, light touch intact all 4 extremities, finger to nose within normal limits, Psych: Alert, oriented, appropriate affect Results CBC & Chem 7: 02/15/19 18:13 02/15/19 18:13 Labs: Abnormal Lab Results - Last 24 Hours (Table) 02/15/19 02/15/19 02/16/19 Range/Units 18:13 18:13 08:13 Hct 47.0 H (34.0-46.0) % Glucose 120 H (74-99) mg/dL LDL Cholesterol, Calc 104 H (0-99) mg/dL HDL Cholesterol 64 H (40-60) mg/dL TSH 4.850 H (0.465-4.680) mIU/L Assessment and Plan Plan: Hypothyroidism -TSH borderline high -Patient does not wish to take Synthroid at this time -May follow-up with her PMD Psychosis -As per psychiatry Thank you for allowing us to participate in the care of this patient. We will follow peripherally. Do not hesitate to contact us with questions. Someone can be reached from the [facility] hospitalist group at all hours of the day at [phone].
[2019-02-16] MEDS: risperiDONE 0.5 MG TAB PO SCH ×2 (21:08→22:04)
[2019-02-16 21:16] LABS: Hemoglobin A1C 5.7 % (4.0-6.0)
[2019-02-17] MEDS: risperiDONE 0.5 MG TAB PO SCH ×2 (08:35→20:20)
[2019-02-17] MEDS: NICOTINE 7MG/24HR PATCH TRANSDERM SCH (08:35)
[2019-02-17] MEDS: MULTIVITAMINS, THERA 1 EACH TAB PO SCH (12:05)
--- NOTE | 2019-02-17 17:07 | P.PN ---
Progress Note - Text IDENTIFICATION DATA: This is a 73-year-old female petitioned by family for altered mental status secondary to UTI and complaints of the patient being paranoid and delusional. INTERVAL HISTORY: She reports she is here to get a CT scan and says she had discussed results with Dr. Middleton. She denies any problems. She says she is making some changes to her home and is planning to be there soon so can can get the work done. She reports good sleep and appetite. She reports reading and watching [employer] channels during her spare time. She denies current symptoms of depression. MENTAL STATUS EXAMINATION: Patient appears younger than her stated age. The patient is alert and oriented 4 and in no apparent distress. Motor and speech behaviors are within normal limits. 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 affect is broad. thought processes linear thought content is negative for suicidal or homicidal ideation. Denies current auditory or visual halluciantions. Denies paranoia. insight and judgment are improving . ASSESSMENT AND PLAN: Acute psychosis Continue current treatment.
[2019-02-18] MEDS: risperiDONE 0.5 MG TAB PO SCH ×2 (09:08→20:37)
[2019-02-18] MEDS: NICOTINE 7MG/24HR PATCH TRANSDERM SCH (09:08)
[2019-02-18] MEDS: MULTIVITAMINS, THERA 1 EACH TAB PO SCH (11:53)
--- NOTE | 2019-02-18 15:46 | P.PN ---
Progress Note - Text IDENTIFICATION DATA: This is a 73-year-old female petitioned by family for altered mental status secondary to UTI and complaints of the patient being paranoid and delusional. INTERVAL HISTORY: She beleives she will be going home tonight. She reports being visited by her daughter yesterday and says it went well . She says she ahs been excercising and walking . She reports feeling good. She claims ot have not attended any groups today but says she talks to people. She denies any problems. S She reports good sleep and appetite. She denies current symptoms of depression. MENTAL STATUS EXAMINATION: 73 year old woman in [facility]. Patient appears younger than her stated age. The patient is alert and oriented 4 and in no apparent distress. Motor and speech behaviors are within normal limits. Mood is good, affect is broad. thought processes linear thought content is negative for suicidal or homicidal ideation. Denies current auditory or visual halluciantions. Denies paranoia. insight and judgment are improving . ASSESSMENT AND PLAN: Acute psychosis Continue current treatment.
[2019-02-19] MEDS: NICOTINE 7MG/24HR PATCH TRANSDERM SCH (09:52)
[2019-02-19] MEDS: risperiDONE 0.5 MG TAB PO SCH ×2 (09:52→22:23)
--- NOTE | 2019-02-19 12:30 | P.PN ---
Subjective Progress Note Date: 02/19/19 Principal diagnosis: every psychosis this 73-year-old female has not been taking her medications since 02/16/2019. She says they are toxic and she will not take. She isn't in all life she came in the hospital which is visiting normal person's home without some willingness her laughing the emergency room and talking to other people. She's been very isolative. She states "I'm just here for medical checkup" and have discussed with her on Tuesday that she needs to go to group take medications or rub from she has done neither. Family meeting is set up for today. Objective - Vital Signs Vital signs: Vital Signs Temp 98.3 F 02/19/19 06:53 Pulse 68 02/19/19 06:53 Resp 12 02/19/19 06:53 BP 116/56 02/19/19 06:53 Pulse Ox 96 02/15/19 22:17 Intake & Output 02/18/19 02/19/19 02/19/19 18:59 06:59 18:59 Weight 60.7 kg - Labs CBC & Chem 7: 02/15/19 18:13 02/15/19 18:13 Labs: Abnormal Lab Results - Last 24 Hours (Table) 02/16/19 Range/Units 08:13 Total T4 12.0 H (4.5 - 10.9) ug/dL Assessment and Plan Assessment: This is a 73-year-old female with a prior history of admission for altered mental status secondary to UTI who is brought in under petition with family complaints of the patient being paranoid and delusional she apparently is paranoid that area observed going to kill her she also apparently was talking to her who is dad indication of her home. She was found in her neighbors living room and was not invited in. A petition was filed by the patient's family. She does not know why she is here she denies any complaints fevers chills nausea vomiting sweats chest pain she also states her is nothing wrong with her and doesn't understand why she has been hospital. No reports of cough or phlegm production or dysuria. No other modifying factors at this time. Family the patient does have a history of smoking is unclear whether she does still smoke MD Complaint: altered mental status - Related Data Home Medications Medication Instructions Recorded Confirmed Multivitamins, Thera [Multivitamin 1 tab PO DAILY 11/09/18 02/15/19 (formulary)] Allergies Allergy/AdvReac Type Severity Reaction Status Date / Time No Known Allergies Allergy Verified 02/15/19 18:42 Past Medical History Past Medical History: Thyroid Disorder Additional Past Medical History / Comment(s): bronchitis, vit b deficiency, stage 3 cervical cancer-sx only, in past took meds for thyroid but was taken off it 15 years ago, upper/lower dental bridges History of Any Multi-Drug Resistant Organisms: None Reported Past Surgical History: Appendectomy, Hysterectomy Past Anesthesia/Blood Transfusion Reactions: No Reported Reaction Smoking Status: Current some day smoker Past Alcohol Use History: Rare Past Drug Use History: None Reported Mental Status Examination - General Appearance: [ casual, appears younger than stated age] Speech/Language: [slow, mumbling, hesitant, monotone, soft] Attitude/Behavior: [ guarded, withdrawn, indifferent] Mood: [ anxious, Affect: [flat, blunted constricted] Orientation: [time, person, place situation] Thought Content: [wnl Risk Factors: [denies suicidal (ideations, plan), and/or Homicidal (ideations, plan), other] Perception: [wnl, hallucinations (auditory Thought Processes: [ concrete, circumstantial, Concentration/Attention Span: [wnl [Per observation and interview with the patient] Recent Memory: [wnl, Remote Memory: [wnl, ] [past events, as related history] Intelligence: [ average] [based on history, based on vocabulary, syntax, gr ammar, and content] Judgement: [fair] [per patient's behavior/history of present illness] Insight: [ fair] [understanding severity of illness/history of present illness] Diagnosis: acute psychosis Plan: medical, psychiatric , social, risperdal 0.25 mg po bid follow and observe 15 minute checks and usual protocol for the behavioral health unit. (1) Acute psychosis Current Visit: Yes Status: Acute Code(s): F23 - BRIEF PSYCHOTIC DISORDER SNOMED Code(s): 64773519 Plan: a petition is in the chart and a first clinical CERT will be done this afternoon and I will do the second CERT for involuntary stay in treatment. She clearly is a pleasant 73-year-old lady who is slightly demented and has no insight into why she needs care. Time with Patient: Greater than 30
[2019-02-19] MEDS: MULTIVITAMINS, THERA 1 EACH TAB PO SCH (12:57)
--- NOTE | 2019-02-19 18:29 | P.PN ---
Subjective Progress Note Date: 02/19/19 Principal diagnosis: psychosis Patient is a 73-year-old female seen on the mental health unit. Patient seen and examined. She is fixated on the fact that people are watching her and taking notice what she is doing and monitoring her at all times she will not tell me that these people are. She is insistent on reading my name tag and memorizing the spelling of my last name. She cannot tell me why she is admitted to the mental health unit and believes that she is here for a medical exam and not her mental health. We went over lab results including abnormal TSH and T4 levels. She was on synthroid at some point in time and is unable to tell my why she came off. She does not see a PCP and treats herself holistically. She believe that she may have gone to the PCP for a colonoscopy or test, but not sure what for. She wants to know all lab work results and we reviewed them, I then asked her if there is something she in concerned about and she states that people at watching her, she is having her house remodeled and needs to be home. I rephrased the questions and asked her if there was something she was worried about on her lab work, and she again repeated the same story. Objective - Vital Signs Vital signs: Vital Signs Temp 98.3 F 02/19/19 06:53 Pulse 68 02/19/19 06:53 Resp 12 02/19/19 06:53 BP 116/56 02/19/19 06:53 Pulse Ox 96 02/15/19 22:17 Intake & Output 02/18/19 02/19/19 02/19/19 18:59 06:59 18:59 Weight 60.7 kg - Exam General: non toxic, no distress, appears at stated age Derm: warm, dry Head: atraumatic, normocephalic, symmetric Eyes: EOMI, no lid lag, anicteric sclera Mouth: no lip lesion, mucus membranes moist Cardiovascular: S1S2 reg, no murmur, positive posterior tibial pulse bilateral, Lungs: CTA bilateral, no rhonchi, no rales , no accessory muscle use Ext: no gross muscle atrophy, no edema, no contractures Neuro: CN II-XI grossly intact, no focal neuro deficits Psych: Alert, oriented, flat affect - Labs CBC & Chem 7: 02/15/19 18:13 03/21/19 18:13 Labs: Abnormal Lab Results - Last 24 Hours (Table) 02/16/19 Range/Units 08:13 Total T4 12.0 H (4.5 - 10.9) ug/dL Assessment and Plan Assessment: Elevated TSH - T 4 also elevated, T3 normal - Recommend repeat testing in 4-6 weeks. - Dr. mario in [place] recommended. Acute psychosis - Patient clearly does not understand the need for treatment, does not see her though process as abnormal, and does not have the capacity to care for herself at this point in time. Certification completed. - your psych management Thank you for allowing us to participate in the care of this patient. We will follow peripherally. Do not hesitate to contact us with questions. Someone can be reached from the [facility] hospitalist group at all hours of the day at [phone].
[2019-02-20] MEDS: NICOTINE 7MG/24HR PATCH TRANSDERM SCH (09:59)
[2019-02-20] MEDS: risperiDONE 0.5 MG TAB PO SCH ×2 (10:00→21:21)
--- NOTE | 2019-02-20 13:14 | P.PN ---
Subjective Progress Note Date: 02/20/19 Principal diagnosis: every psychosis this 73-year-old female has not been taking her medications since 02/16/2019. She says they are toxic and she will not take. She isn't in all life she came in the hospital which is visiting normal person's home without some willingness her laughing the emergency room and talking to other people. She's been very isolative. She states "I'm just here for medical checkup" and have discussed with her on Tuesday that she needs to go to group take medications or rub from she has done neither. Family meeting is set up for today. 02/20/2019; CHaRT REVIEWED patient interviewed who was rude and walked away mute Objective - Vital Signs Vital signs: Vital Signs Temp 98.5 F 02/20/19 06:17 Pulse 64 02/20/19 06:17 Resp 16 02/20/19 06:17 BP 122/59 02/20/19 06:17 Pulse Ox 96 02/15/19 22:17 - Labs CBC & Chem 7: 02/15/19 18:13 02/15/19 18:13 Assessment and Plan Assessment: This is a 73-year-old female with a prior history of admission for altered mental status secondary to UTI who is brought in under petition with family complaints of the patient being paranoid and delusional she apparently is paranoid that area observed going to kill her she also apparently was talking to her who is dad indication of her home. She was found in her neighbors living room and was not invited in. A petition was filed by the patient's family. She does not know why she is here she denies any complaints fevers chills nausea vomiting sweats chest pain she also states her is nothing wrong with her and doesn't understand why she has been hospital. No reports of cough or phlegm production or dysuria. No other modifying factors at this time. Family the patient does have a history of smoking is unclear whether she does still smoke MD Complaint: altered mental status - Related Data Home Medications Medication Instructions Recorded Confirmed Multivitamins, Thera [Multivitamin 1 tab PO DAILY 11/09/18 02/15/19 (formulary)] Allergies Allergy/AdvReac Type Severity Reaction Status Date / Time No Known Allergies Allergy Verified 02/15/19 18:42 Past Medical History Past Medical History: Thyroid Disorder Additional Past Medical History / Comment(s): bronchitis, vit b deficiency, stage 3 cervical cancer-sx only, in past took meds for thyroid but was taken off it 15 years ago, upper/lower dental bridges History of Any Multi-Drug Resistant Organisms: None Reported Past Surgical History: Appendectomy, Hysterectomy Past Anesthesia/Blood Transfusion Reactions: No Reported Reaction Smoking Status: Current some day smoker Past Alcohol Use History: Rare Past Drug Use History: None Reported Mental Status Examination - General Appearance: [ casual, appears younger than stated age] Speech/Language: [slow, mumbling, hesitant, monotone, soft] Attitude/Behavior: [ guarded, withdrawn, indifferent] Mood: [ anxious, Affect: [flat, blunted constricted] Orientation: [time, person, place situation] Thought Content: [wnl Risk Factors: [denies suicidal (ideations, plan), and/or Homicidal (ideations, plan), other] Perception: [wnl, hallucinations (auditory Thought Processes: [ concrete, circumstantial, Concentration/Attention Span: [wnl [Per observation and interview with the patient] Recent Memory: [wnl, Remote Memory: [wnl, ] [past events, as related history] Intelligence: [ average] [based on history, based on vocabulary, syntax, grammar, and content] Judgement: [fair] [per patient's behavior/history of present illness] Insight: [ fair] [understanding severity of illness/history of present illness] Diagnosis: acute psychosis Plan: medical, psychiatric , social, risperdal 0.25 mg po bid follow and observe 15 minute checks and usual protocol for the behavioral health unit. (1) Acute psychosis Current Visit: Yes Status: Acute Code(s): F23 - BRIEF PSYCHOTIC DISORDER SNOMED Code(s): 17982364 Plan: a petition is in the chart and a first clinical CERT will be done this afternoon and I will do the second CERT for involuntary stay in treatment. She clearly is a pleasant 73-year-old lady who is slightly demented and has no insight into why she needs care. 02/20/2019: awaiting court 15 minute checks and usual protocol for [facility]. Time with Patient: Less than 30
[2019-02-20] MEDS: MULTIVITAMINS, THERA 1 EACH TAB PO SCH (13:57)
[2019-02-21] MEDS: NICOTINE 7MG/24HR PATCH TRANSDERM SCH (09:17)
[2019-02-21] MEDS: risperiDONE 0.5 MG TAB PO SCH ×2 (09:18→20:24)
[2019-02-21] MEDS: MULTIVITAMINS, THERA 1 EACH TAB PO SCH (12:19)
--- NOTE | 2019-02-21 14:41 | P.PN ---
Subjective Progress Note Date: 02/21/19 Principal diagnosis: every psychosis this 73-year-old female has not been taking her medications since 02/16/2019. She says they are toxic and she will not take. She isn't in all life she came in the hospital which is visiting normal person's home without some willingness her laughing the emergency room and talking to other people. She's been very isolative. She states "I'm just here for medical checkup" and have discussed with her on Tuesday that she needs to go to group take medications or rub from she has done neither. Family meeting is set up for today. 02/20/2019; CHaRT REVIEWED patient interviewed who was rude and walked away mute 02/21/2019: Mute today and refusing to talk; she has been on the phone talking to system manager Objective - Vital Signs Vital signs: Vital Signs Temp 98.2 F 02/21/19 06:34 Pulse 78 02/21/19 06:34 Resp 16 02/21/19 06:34 BP 113/66 02/21/19 06:34 Pulse Ox 96 02/15/19 22:17 - Labs CBC & Chem 7: 02/15/19 18:13 02/15/19 18:13 Assessment and Plan Assessment: This is a 73-year-old female with a prior history of admission for altered mental status secondary to UTI who is brought in under petition with family complaints of the patient being paranoid and delusional she apparently is paranoid that area observed going to kill her she also apparently was talking to her who is dad indication of her home. She was found in her neighbors living room and was not invited in. A petition was filed by the patient's family. She does not know why she is here she denies any complaints fevers chills nausea vomiting sweats chest pain she also states her is nothing wrong with her and doesn't understand why she has been hospital. No reports of cough or phlegm production or dysuria. No other modifying factors at this time. Family the patient does have a history of smoking is unclear whether she does still smoke MD Complaint: altered mental status - Related Data Home Medications Medication Instructions Recorded Confirmed Multivitamins, Thera [Multivitamin 1 tab PO DAILY 12/13/18 03/21/19 (formulary)] Allergies Allergy/AdvReac Type Severity Reaction Status Date / Time No Known Allergies Allergy Verified 02/15/19 18:42 Past Medical History Past Medical History: Thyroid Disorder Additional Past Medical History / Comment(s): bronchitis, vit b deficiency, stage 3 cervical cancer-sx only, in past took meds for thyroid but was taken off it 15 years ago, upper/lower dental bridges History of Any Multi-Drug Resistant Organisms: None Reported Past Surgical History: Appendectomy, Hysterectomy Past Anesthesia/Blood Transfusion Reactions: No Reported Reaction Smoking Status: Current some day smoker Past Alcohol Use History: Rare Past Drug Use History: None Reported Mental Status Examination - General Appearance: [ casual, appears younger than stated age] Speech/Language: [slow, mumbling, hesitant, monotone, soft] Attitude/Behavior: [ guarded, withdrawn, indifferent] Mood: [ anxious, Affect: [flat, blunted constricted] Orientation: [time, person, place situation] Thought Content: [wnl Risk Factors: [denies suicidal (ideations, plan), and/or Homicidal (ideations, plan), other] Perception: [wnl, hallucinations (auditory Thought Processes: [ concrete, circumstantial, Concentration/Attention Span: [wnl [Per observation and interview with the patient] Recent Memory: [wnl, Remote Memory: [wnl, ] [past events, as related history] Intelligence: [ average] [based on history, based on vocabulary, syntax, grammar, and content] Judgement: [fair] [per patient's behavior/history of present illness] Insight: [ fair] [understanding severity of illness/history of present illness] Diagnosis: acute psychosis Plan: medical, psychiatric , social, risperdal 0.25 mg po bid follow and observe 15 minute checks and usual protocol for the behavioral health unit. (1) Acute psychosis Current Visit: Yes Status: Acute Code(s): F23 - BRIEF PSYCHOTIC DISORDER SNOMED Code(s): 77425668 Plan: a petition is in the chart and a first clinical CERT will be done this afternoon and I will do the second CERT for involuntary stay in treatment. She clearly is a pleasant 73-year-old lady who is slightly demented and has no insight into why she needs care. 02/20/2019: awaiting court 15 minute checks and usual protocol for [facility]. 02/21/2019: chart reviewed and vitals are stable, eating food bu refusing medications Time with Patient: Less than 30
[2019-02-22] MEDS: risperiDONE 0.5 MG TAB PO SCH ×2 (09:00→21:40)
[2019-02-22] MEDS: NICOTINE 7MG/24HR PATCH TRANSDERM SCH (09:00)
[2019-02-22] MEDS: flUPHENAZine 2.5 MG/ML (MDV) 10 ML VIAL IM SCH ×2 (10:09→21:38)
--- NOTE | 2019-02-22 12:00 | P.PN ---
Subjective Progress Note Date: 02/22/19 Principal diagnosis: every psychosis this 73-year-old female has not been taking her medications since 02/16/2019. She says they are toxic and she will not take. She isn't in all life she came in the hospital which is visiting normal person's home without some willingness her laughing the emergency room and talking to other people. She's been very isolative. She states "I'm just here for medical checkup" and have discussed with her on Tuesday that she needs to go to group take medications or rub from she has done neither. Family meeting is set up for today. 02/20/2019; CHaRT REVIEWED patient interviewed who was rude and walked away mute 02/21/2019: Mute today and refusing to talk; she has been on the phone talking to corpsman 02/22/2019: Chart reviewed and discussed in team this morning. Patient refusing to take her medicine comes up with an excuse "that I will take it when I get back to [facility] which she is still in denial; Objective - Vital Signs Vital signs: Vital Signs Temp 98.2 F 02/21/19 06:34 Pulse 95 02/22/19 06:48 Resp 16 02/22/19 06:48 BP 137/70 02/22/19 06:48 Pulse Ox 96 02/15/19 22:17 - Labs CBC & Chem 7: 02/15/19 18:13 02/15/19 18:13 Assessment and Plan Assessment: This is a 73-year-old female with a prior history of admission for altered mental status secondary to UTI who is brought in under petition with family comp laints of the patient being paranoid and delusional she apparently is paranoid that area observed going to kill her she also apparently was talking to her who is dad indication of her home. She was found in her neighbors living room and was not invited in. A petition was filed by the patient's family. She does not know why she is here she denies any complaints fevers chills nausea vomiting sweats chest pain she also states her is nothing wrong with her and doesn't understand why she has been hospital. No reports of cough or phlegm production or dysuria. No other modifying factors at this time. Family the patient does have a history of smoking is unclear whether she does still smoke Complaint: altered mental status - Related Data Home Medications Medication Instructions Recorded Confirmed Multivitamins, Thera [Multivitamin 1 tab PO DAILY 11/09/18 02/15/19 (formulary)] Allergies Allergy/AdvReac Type Severity Reaction Status Date / Time No Known Allergies Allergy Verified 02/15/19 18:42 Past Medical History Past Medical History: Thyroid Disorder Additional Past Medical History / Comment(s): bronchitis, vit b deficiency, stage 3 cervical cancer-sx only, in past took meds for thyroid but was taken off it 15 years ago, upper/lower dental bridges History of Any Multi-Drug Resistant Organisms: None Reported Past Surgical History: Appendectomy, Hysterectomy Past Anesthesia/Blood Transfusion Reactions: No Reported Reaction Smoking Status: Current some day smoker Past Alcohol Use History: Rare Past Drug Use History: None Reported Mental Status Examination - General Appearance: [ casual, appears younger than stated age] Speech/Language: [slow, mumbling, hesitant, monotone, soft] Attitude/Behavior: [ guarded, withdrawn, indifferent] Mood: [ anxious, Affect: [flat, blunted constricted] Orientation: [time, person, place situation] Thought Content: [wnl Risk Factors: [denies suicidal (ideations, plan), and/or Homicidal (ideations, plan), other] Perception: [wnl, hallucinations (auditory Thought Processes: [ concrete, circumstantial, Concentration/Attention Span: [wnl [Per observation and interview with the patient] Recent Memory: [wnl, Remote Memory: [wnl, ] [past events, as related history] Intelligence: [ average] [based on history, based on vocabulary, syntax, grammar, and content] Judgement: [fair] [per patient's behavior/history of present illness] Insight: [ fair] [understanding severity of illness/history of present illness] Diagnosis: acute psychosis Plan: medical, psychiatric , social, risperdal 0.25 mg po bid follow and observe 15 minute checks and usual protocol for the behavioral health unit. Use of Prolixin 1.25 mg when she refuses her Risperdal. (1) Acute psychosis Current Visit: Yes Status: Acute Code(s): F23 - BRIEF PSYCHOTIC DISORDER SNOMED Code(s): 27844802 Plan: a petition is in the chart and a first clinical CERT will be done this afternoon and I will do the second CERT for involuntary stay in treatment. She clearly is a pleasant 73-year-old lady who is slightly demented and has no insight into why she needs care. 02/20/2019: awaiting court 15 minute checks and usual protocol for [facility]. 02/21/2019: chart reviewed and vitals are stable, eating food but refusing medications 02/22/2019: Chart reviewed and discussed with nursing staff that she is not taking her medicines and we came up with a plan that she will get Prolixin 1.25 mg IM every time that she refuses her Risperdal. She is not communicating well to anybody. Time with Patient: Less than 30
[2019-02-22] MEDS: MULTIVITAMINS, THERA 1 EACH TAB PO SCH (12:41)
--- NOTE | 2019-02-23 12:45 | P.PN ---
Subjective Progress Note Date: 02/23/19 Principal diagnosis: every psychosis this 73-year-old female has not been taking her medications since 02/16/2019. She says they are toxic and she will not take. She isn't in all life she came in the hospital which is visiting normal person's home without some willingness her laughing the emergency room and talking to other people. She's been very isolative. She states "I'm just here for medical checkup" and have discussed with her on Tuesday that she needs to go to group take medications or rub from she has done neither. Family meeting is set up for today. 02/20/2019; CHa[facility] REVIEWED patient interviewed who was rude and walked away mute 02/21/2019: Mute today and refusing to talk; she has been on the phone talking to merchandiser retail representative 02/22/2019: Chart reviewed and discussed in team this morning. Patient refusing to take her medicine comes up with an excuse "that I will take it when I get back to [facility] which she is still in denial; 02/23/2019: Chart reviewed and discussed in team and did court on video today. Patient is now mandated to take medications. She still is resistant and refuses to talk. She isolates lays in bed all day goes to meals turnaround goes back to her room and pulse cover over head. Objective - Vital Signs Vital signs: Vital Signs Temp 98.1 F 02/23/19 06:17 Pulse 67 02/23/19 06:17 Resp 14 02/23/19 06:17 BP 108/55 02/23/19 06:17 Pulse Ox 96 02/15/19 22:17 - Labs CBC & Chem 7: 02/15/19 18:13 02/15/19 18:13 Assessment and Plan Assessment: This is a 73-year-old female with a prior history of admission for altered m ental status secondary to UTI who is brought in under petition with family complaints of the patient being paranoid and delusional she apparently is paranoid that area observed going to kill her she also apparently was talking to her who is dad indication of her home. She was found in her neighbors living room and was not invited in. A petition was filed by the patient's family. She does not know why she is here she denies any complaints fevers chills nausea vomiting sweats chest pain she also states her is nothing wrong with her and doesn't understand why she has been hospital. No reports of cough or phlegm production or dysuria. No other modifying factors at this time. Family the patient does have a history of smoking is unclear whether she does still smoke MD Complaint: altered mental status - Related Data Home Medications Medication Instructions Recorded Confirmed Multivitamins, Thera [Multivitamin 1 tab PO DAILY 11/09/18 02/15/19 (formulary)] Allergies Allergy/AdvReac Type Severity Reaction Status Date / Time No Known Allergies Allergy Verified 02/15/19 18:42 Past Medical History Past Medical History: Thyroid Disorder Additional Past Medical History / Comment(s): bronchitis, vit b deficiency, stage 3 cervical cancer-sx only, in past took meds for thyroid but was taken off it 15 years ago, upper/lower dental bridges History of Any Multi-Drug Resistant Organisms: None Reported Past Surgical History: Appendectomy, Hysterectomy Past Anesthesia/Blood Transfusion Reactions: No Reported Reaction Smoking Status: Current some day smoker Past Alcohol Use History: Rare Past Drug Use History: None Reported Mental Status Examination - General Appearance: [ casual, appears younger than stated age] Speech/Language: [slow, mumbling, hesitant, monotone, soft] Attitude/Behavior: [ guarded, withdrawn, indifferent] Mood: [ anxious, Affect: [flat, blunted constricted] Orientation: [time, person, place situation] Thought Content: [wnl Risk Factors: [denies suicidal (ideations, plan), and/or Homicidal (ideations, plan), other] Perception: [wnl, hallucinations (auditory Thought Processes: [ concrete, circumstantial, Concentration/Attention Span: [wnl [Per observation and interview with the patient] Recent Memory: [wnl, Remote Memory: [wnl, ] [past events, as related history] Intelligence: [ average] [based on history, based on vocabulary, syntax, grammar, and content] Judgement: [fair] [per patient's behavior/history of present illness] Insight: [ fair] [understanding severity of illness/history of present illness] Diagnosis: acute psychosis Plan: medical, psychiatric , social, risperdal 0.25 mg po bid follow and observe 15 minute checks and usual protocol for the behavioral health unit. Use of Prolixin 1.25 mg when she refuses her Risperdal. (1) Acute psychosis Current Visit: Yes Status: Acute Code(s): F23 - BRIEF PSYCHOTIC DISORDER SNOMED Code(s): 23907768 Plan: a petition is in the chart and a first clinical CERT will be done this afternoon and I will do the second CERT for involuntary stay in treatment. She clearly is a pleasant 73-year-old lady who is slightly demented and has no insight into why she needs care. 02/20/2019: awaiting court 15 minute checks and usual protocol for [facility]. 02/21/2019: chart reviewed and vitals are stable, eating food but refusing medications 02/22/2019: Chart reviewed and discussed with nursing staff that she is not taking her medicines and we came up with a plan that she will get Prolixin 1.25 mg IM every time that she refuses her Risperdal. She is not communicating well to anybody. 02/23/2019 chart reviewed and discussed with nursing staff and after court which she refused to go to an "my senior qa analyst take care of it"we'll continue to offer oral medicines and continue using Prolixin when she refuses. She has no insight into her mental illness. She'll remain on 15 minute checks will follow usual protocol Time with Patient: Less than 30
[2019-02-23] MEDS: MULTIVITAMINS, THERA 1 EACH TAB PO SCH (13:25)
[2019-02-23] MEDS: risperiDONE 0.5 MG TAB PO SCH ×2 (13:31→22:06)
[2019-02-23] MEDS: flUPHENAZine 2.5 MG/ML (MDV) 10 ML VIAL IM SCH ×2 (13:33→22:09)
[2019-02-23] MEDS: NICOTINE 7MG/24HR PATCH TRANSDERM SCH (13:38)
[2019-02-23] MEDS ORDERED: BENZTROPINE 2 MG/2 ML AMP IM STA (15:41)
[2019-02-23] MEDS ORDERED: LORazepam 2 MG/ML INJ IM STA (15:43)
[2019-02-23] MEDS: BENZTROPINE 2 MG/2 ML AMP IM SCH (22:14)
[2019-02-24] MEDS: BENZTROPINE 2 MG/2 ML AMP IM SCH ×2 (09:45→21:20)
[2019-02-24] MEDS: flUPHENAZine 2.5 MG/ML (MDV) 10 ML VIAL IM SCH ×2 (09:46→21:20)
[2019-02-24] MEDS: NICOTINE 7MG/24HR PATCH TRANSDERM SCH (11:32)
[2019-02-24] MEDS: risperiDONE 0.5 MG TAB PO SCH ×2 (11:32→20:55)
[2019-02-24] MEDS: MULTIVITAMINS, THERA 1 EACH TAB PO SCH (13:15)
--- NOTE | 2019-02-24 20:03 | P.PN ---
Subjective Progress Note Date: 02/24/19 Principal diagnosis: Brief Psychotic Disorder Brief Psychotic Disorder Found her in fair mood. Reports gradual improvement in her mood. Has been refusing medications as she thinks that she is doing fine and nothing is wrong with her. She does not know hwy she is here. Denies hearing any voices or seeing things. Did sleep better last night MSE :AAOx 2. fair eye contact. Mood depressed. Has no suicidal ideation. Paranoid Delusional. Insight and judgment poor Will encourage to take medications Objective - Vital Signs Vital signs: Vital Signs Temp 98.1 F 02/24/19 06:08 Pulse 63 02/24/19 06:08 Resp 14 02/24/19 06:08 BP 145/59 02/24/19 06:08 Pulse Ox 96 02/15/19 22:17 - Labs CBC & Chem 7: 02/15/19 18:13 02/15/19 18:13
[2019-02-25] MEDS: risperiDONE 0.5 MG TAB PO SCH (08:58)
[2019-02-25] MEDS: MULTIVITAMINS, THERA 1 EACH TAB PO SCH (08:58)
[2019-02-25] MEDS: flUPHENAZine 2.5 MG/ML (MDV) 10 ML VIAL IM SCH ×2 (08:59→20:53)
[2019-02-25] MEDS: NICOTINE 7MG/24HR PATCH TRANSDERM SCH (08:59)
[2019-02-25] MEDS: BENZTROPINE 2 MG/2 ML AMP IM SCH ×2 (09:00→20:54)
--- NOTE | 2019-02-25 12:03 | P.PN ---
Subjective Progress Note Date: 02/25/19 Principal diagnosis: Brief Psychotic Disorder Brief Psychotic Disorder Found her in fair mood. Continues to be delusional. Has some loose associations. Showed me her writings. Has been refusing medications as she thinks that she is doing fine and nothing is wrong with her. She does not know hwy she is here. Denies hearing any voices or seeing things. Did sleep better last night MSE :AAOx 2. fair eye contact. Mood depressed. Has no suicidal ideation. Paranoid Delusional. Insight and judgment poor Will encourage to take medications Objective - Vital Signs Vital signs: Vital Signs Temp 98.5 F 02/25/19 06:34 Pulse 75 02/25/19 06:34 Resp 16 02/25/19 06:34 BP 114/62 02/25/19 06:34 Pulse Ox 96 02/15/19 22:17 Intake & Output 02/24/19 02/25/19 02/25/19 18:59 06:59 18:59 Weight 60.793 kg - Labs CBC & Chem 7: 02/15/19 18:13 02/15/19 18:13
[2019-02-25] MEDS: risperiDONE 1 MG TAB PO SCH (20:52)
[2019-02-26] MEDS: risperiDONE 1 MG TAB PO SCH ×3 (08:48→20:30)
[2019-02-26] MEDS: flUPHENAZine 2.5 MG/ML (MDV) 10 ML VIAL IM SCH ×2 (08:49→12:07)
[2019-02-26] MEDS: BENZTROPINE 2 MG/2 ML AMP IM SCH ×2 (08:49→12:07)
[2019-02-26] MEDS: NICOTINE 7MG/24HR PATCH TRANSDERM SCH (08:49)
[2019-02-26] MEDS ORDERED: ZIPRASIDONE 20 MG VIAL IM PRN (12:00)
--- NOTE | 2019-02-26 12:05 | P.PN ---
Progress Note - Text Interval history: The patient is found in her room she follows me to an interview room. She indicates her mood is okay but she is concerned about her medications. She verbalizes her opinion that she didn't require hospitalization or any medication but particularly is worried about the Risperdal dose. She states that she was able to tolerate the 0.5 mg dose much better. She indicates feeling slow he throughout the day and she is walking more slowly. She indicates having some stiffness in her leg and her jaw. We reviewed her med ications her questions were answered. The psychiatric evaluation was reviewed. Mental status exam: The patient is a female appearing her stated age. She is ambulating very slowly with no arm swing. She demonstrates no ataxia with gait. She demonstrates psychomotor slowing overall. She states her mood is okay but is frustrated. Affect is constricted. She reports no suicidal or homicidal ideation intent or plan. Insight and judgment are impaired she is not able to describe why she was admitted. Thought process is not well organized. She tends to provide tangential answers and there are loose associations. Speech is fluent nonpressured. She demonstrates no involuntary repetitive movements. Plan: The patient will continue on the Risperdal we will reduce the morning dose to 0.5 mg continue bedtime dose at 1 mg we will discontinue Prolixin as a when necessary. Geodon 10 mg up to twice daily will be used if needed if she refuses oral medication as she is on a court order. We will continue to monitor her for safety and encourage participation in the milieu. I was informed that the patient's daughter is applying for guardianship. Vital signs reviewed.
[2019-02-26] MEDS: risperiDONE 0.5 MG TAB PO SCH (12:19)
[2019-02-26] MEDS: MULTIVITAMINS, THERA 1 EACH TAB PO SCH (12:20)
[2019-02-26] MEDS: BENZTROPINE MESYLATE 0.5 MG TAB PO PRN (20:37)
[2019-02-27] MEDS: risperiDONE 0.5 MG TAB PO SCH (08:32)
[2019-02-27] MEDS: NICOTINE 7MG/24HR PATCH TRANSDERM SCH (08:59)
--- NOTE | 2019-02-27 10:17 | P.PN ---
Progress Note - Text Interval history: The patient is found in her room she follows me to an interview room. She indicates her mood is fine although she has some concerns regarding medication which we addressed. She states that appetite is stable she has been attending to ADLs. She indicates that she is washing clothes this morning. She states she is currently reading a novel and feels that she is able to retain the information she is reading. We reviewed possible symptoms of psychosis and she endorses none of them at this time. Mental status exam: The patient is alert she ambulates slowly without ataxia. She is dressed in her own clothing hygiene grooming appear adequate. She denies having any auditory or visual hallucinations she is reporting no specific delusions. She may be underreporting symptoms versus improvement of her presenting symptoms. We did some brief cognitive testing today. She was able to register 3 out of 3 words and spontaneously recall all 3 after delay of 5 minutes. She is fully oriented to person place and date she is able to recall my name. When asked to name 5 major cities in the [place] she names 7. She was able to name the months of the year backwards, she was able to spell world backwards. She was able to provide some general fund of knowledge questions regarding politicians. With similarity questions she provided one abstract response one concrete response and then could not respond to the third question. With intersecting pentagons she was able to complete that task with an overlapping 4 sided figure and she made no errors in clock drawing and drawing the designated time. She reports no thoughts of harming herself or harming others. She continues to lack insight as to why she was admitted. Plan: The patient will continue on her current medication. We will look for opportunities to reduce the Risperdal possible. I will confer with the treatment team regarding her behavior over the last 24 hours and her participation in the milieu. This is my second interaction with the patient. She is either withholding symptoms during our interactions or she has improved from her initial presentation. Vital signs reviewed. We will continue to monitor her for safety.
[2019-02-27] MEDS: MULTIVITAMINS, THERA 1 EACH TAB PO SCH (13:39)
[2019-02-27] MEDS: risperiDONE 1 MG TAB PO SCH (20:22)
[2019-02-27] MEDS: BENZTROPINE MESYLATE 0.5 MG TAB PO PRN (20:23)
[2019-02-28] MEDS: NICOTINE 7MG/24HR PATCH TRANSDERM SCH (08:33)
[2019-02-28] MEDS: risperiDONE 0.5 MG TAB PO SCH (08:33)
--- NOTE | 2019-02-28 10:01 | P.PN ---
Progress Note - Text Brief summary of admission note: The patient is found in her room she follows me to an interview room. She indicates her mood is getting better. She states that she feels that she is ready for discharge. During treatment team meeting yesterday we decided to have the patient's daughter come in for a second meeting to see how the patient would tolerate that interaction. We reviewed the patient's psychotropic medication she states that she is doing better with that and is reporting no side effects today. She has been eating she has been attending to her ADLs. She is encouraged to participate fully in groups. Mental status exam: The patient is alert she is dressed in her own clothing which is different than yesterday hygiene grooming appear appropriate. She has a smiling affect and is quite cooperative during our interaction. She has spontaneous speech she will often demonstrate some circumstantial thought process but is not tangential she demonstrates no loose associations or flight of ideas. She is easily directed in the session verbally. She reports no suicidal or homicidal ideation intent or plan. She reports no auditory or visual hallucinations or any specific delusions. Insight and judgment appears to be slowly improving. She demonstrates no verbal or physical aggressiveness she demonstrates no involuntary repetitive movements. Plan: The patient's will continue on her current psychotropic medication. We will await the outcome of the second meeting with her daughter. It does appear that she may be clinically stabilizing. Vital signs reviewed. We will continue to monitor her for safety.
[2019-02-28] MEDS: MULTIVITAMINS, THERA 1 EACH TAB PO SCH (12:55)
[2019-02-28] MEDS: risperiDONE 1 MG TAB PO SCH (21:04)
[2019-02-28] MEDS: BENZTROPINE MESYLATE 0.5 MG TAB PO PRN (21:05)
[2019-03-01 06:26] VITALS: RESP 14
[2019-03-01] MEDS: risperiDONE 0.5 MG TAB PO SCH (08:44)
[2019-03-01] MEDS: NICOTINE 7MG/24HR PATCH TRANSDERM SCH (08:45)
[2019-03-01 09:28] VITALS: BMI 21.6
--- NOTE | 2019-03-01 10:45 | P.PN ---
Progress Note - Text Interval history: The patient is found in the library she follows me to an interview room. She indicates her mood is good. She is looking forward to meeting with her daughter this morning for a family meeting. She indicates she slept well staff reported she slept 6 hours. Appetite stable. She has been attending groups. She has no questions or concerns regarding her psychotropic medication. Mental status exam: The patient is alert she stressor own clothing hygiene grooming are adequate. Speech is fluent spontaneous nonpressured. She denies having any suicidal or homicidal ideation intent or plan. She is endorsing no auditory or visual hallucinations or specific delusions. She demonstrates no verbal or physical aggressiveness, she demonstrates no involuntary repetitive movements. Affect is pleasant and smiling. She does have spontaneous speech. She can be circumstantial at times she demonstrates no loose associations or flight of ideas. Insight and judgment limited. Plan: Since I have seen this patient this morning she did participate in the family meeting with her daughter. Social work provided a synopsis of that interaction. The patient was felt to lack insight into behaviors precipitating this admission and demonstrates lack of insight as to why she could not continue those behaviors. There is some concern that she would not keep herself safe if discharged at this time. The patient's daughter has yet to file for guardianship she will be encouraged to do so. We will support a disposition of the patient residing with her daughter or some assisted type living scenario. It appears the patient is not appropriate for independent living at this time. We will continue to monitor her for safety and encourage her participation in the milieu.
[2019-03-01] MEDS: MULTIVITAMINS, THERA 1 EACH TAB PO SCH (13:25)
[2019-03-01] MEDS: BENZTROPINE MESYLATE 0.5 MG TAB PO PRN (21:02)
[2019-03-01] MEDS: risperiDONE 1 MG TAB PO SCH (21:02)
[2019-03-02 06:30] VITALS: BP 110/58; PULSE 62; TEMP 97.9
[2019-03-02] MEDS: MULTIVITAMINS, THERA 1 EACH TAB PO SCH (07:58)
[2019-03-02] MEDS: risperiDONE 0.5 MG TAB PO SCH (07:58)
[2019-03-02] MEDS: NICOTINE 7MG/24HR PATCH TRANSDERM SCH (07:58)
--- NOTE | 2019-03-02 09:37 | P.DS ---
Providers Date of admission: 02/15/19 21:36 Expected date of discharge: 03/02/19 Attending physician: Willi Berkowitz Consults: 02/15/19 22:05 Consult Physician Routine Consulting Provider: Neva Dia Consult Reason/Comments: H & P and medical care Do you want consulting provider notified?: Yes Primary care physician: Stated None - Discharge Diagnosis(es) (1) Psychosis Current Visit: Yes Status: Acute Priority: High Hospital Course: Brief summary of admission note: This patient is a 73-year-old female who was admitted to the mental health unit with acute symptoms of psychosis. Apparently she reported paranoid thoughts and felt someone would harm her. She was talking to her . She was found in her neighbor's living room and was not invited to be in the home. The patient was petitioned and had little insight as to why she was admitted. It appears she has a prior history of admission for altered mental status secondary to UTI. For full details please refer to Dr. Middleton's history and physical dated 02/16/2019. Summary of hospital course: The patient was admitted to the mental health unit involuntarily. She was initially evaluated and treated by Dr. Middleton. I assumed her psychiatric care this past Tuesday. A second clinical certificate was completed and the patient did receive a court order for treatment. She was placed on Risperdal and Cogentin as needed. She was seen by internal medicine for routine history and physical exam. Presenting labs were essentially within normal limits. Her TSH and T4 were abnormal however and this will require further review as an outpatient. Computed tomography scan of her head revealed no acute abnormalities. During one of our interactions she completed a Mini- Mental Status exam without any errors however this may not be comprehensive enough to detect a neurocognitive disorder process. During the time I cared for the patient she has been pleasant cooperative and directable. She has been attending groups she has been attending to her ADLs. She is been appropriate in conversation. She did participate in a support meeting again involving her daughter and that seemed to go much better than the original support meeting. collection systems worker has been in regular contact with the patient's daughter who plans to file for guardianship. The patient's daughter plans to have the patient reside with her in her home. The patient initially reported some discomfort with taking medication but she states now that it seems to be causing no side effect and she has no concerns. Mental status exam: The patient is a female appearing her stated age. She has adequate hygiene grooming. Eye contact is appropriate speech is fluent spontaneous nonpressured. She reports her mood is fine she indicates she is looking forward to being discharged. She is agreeable to residing at her daughter's home and states in fact she enjoys it there. She is reporting no auditory or visual hallucinations or any specific delusions. She demonstrates no objective evidence of psychosis. In terms of her presenting symptoms she does rationalize some of her actions. She does indicate though that she will not go on her neighbor's home again and we discussed legal consequences of those actions. She can be circumstantial but easily redirected she demonstrates no tangential thinking loose associations or flight of ideas. She demonstrates no verbal or physical aggressiveness. She demonstrates no involuntary repetitive movements. Insight and judgment are improved from time of admission. Impressions 1. Psychosis unspecified, rule out delirium 2. Medical comorbidities include history of bronchitis thyroid abnormality recent history UTI Plan: The patient will be discharged from mental health unit today to the care of her daughter. Her daughter plans on getting guardianship of the patient. The patient will reside in her daughter's home. The patient will continue on Restoril 0.5 mg in the morning 1 mg at bedtime Cogentin 0.5 mg at bedtime. It may be in the outpatient setting the Risperdal can be reduced. There is no reported use of alcohol or illicit drugs. The patient will follow up with her primary care physician and other specialists as needed. Internal medicine recommendations reevaluation of thyroid in 4-6 weeks. At this time there is no imminent safety risks the patient is appropriate for transition to outpatient care. She is instructed to return to the hospital if any acute safety concerns. Patient Condition at Discharge: Stable Plan - Discharge Summary New Discharge Prescriptions: New Benztropine Mesylate [Cogentin] 0.5 mg PO HS #30 tab Nicotine 7Mg/24Hr Patch [Habitrol] 1 patch TRANSDERM DAILY #10 patch risperiDONE [RisperDAL] 0.5 mg PO DAILY #30 tab risperiDONE [RisperDAL] 1 mg PO HS #30 tab Continue Multivitamins, Thera [Multivitamin (formulary)] 1 tab PO DAILY Discharge Medication List Multivitamins, Thera [Multivitamin (formulary)] 1 tab PO DAILY 11/09/18 [History] Benztropine Mesylate [Cogentin] 0.5 mg PO HS #30 tab 03/02/19 [Rx] Nicotine 7Mg/24Hr Patch [Habitrol] 1 patch TRANSDERM DAILY #10 patch 03/02/19 [Rx] risperiDONE [RisperDAL] 0.5 mg PO DAILY #30 tab 03/02/19 [Rx] risperiDONE [RisperDAL] 1 mg PO HS #30 tab 03/02/19 [Rx] Follow up Appointment(s)/Referral(s): [facility] [Outside] - 1 Week Sky Be DO [REFERRING] - 1 Week None,Stated [Primary Care Provider] - 1-2 days Patient Instructions/Handouts: Psychotic Disorder (DC), Suicide Prevention (DC) Activity/Diet/Wound Care/Special Instructions: Activity and diet as tolerated. Avoid the use of street drugs and alcohol. Take all medications as prescribed. When you are in need of refills on your medications please contact your medical provider and/or outpatient psychiatrist to have this done. Please go to scheduled outpatient appointment for aftercare treatment. If symptoms return or become worse, call the crisis line at and/or go to the nearest emergency room for evaluation. Recommend repeat TSH with Dr. Be in 4-6 weeks.
[2019-03-02] MEDS ORDERED: BENZTROPINE MESYLATE 0.5 MG TAB PO SCH (21:00)
== END 2019-03-02 18:50 | disposition home or self-care (01) | DRG 885 ==
LOC: EC 17:16 → 3MHU 21:36
PROVIDERS: ADMIT Psychiatry & Neurology Psychiatry; ATTEND Psychiatry & Neurology Psychiatry
DX: F29 Unspecified psychosis not due to a substance or known physiological condition (principal); E03.9 Hypothyroidism, unspecified; F17.210 Nicotine dependence, cigarettes, uncomplicated; Z80.0 Family history of malignant neoplasm of digestive organs; Z80.1 Family history of malignant neoplasm of trachea, bronchus and lung; Z85.41 Personal history of malignant neoplasm of cervix uteri; Z87.440 Personal history of urinary (tract) infections; Z90.710 Acquired absence of both cervix and uterus; T38.1X6A Underdosing of thyroid hormones and substitutes, initial encounter; Z91.128 Patient's intentional underdosing of medication regimen for other reason; E53.9 Vitamin B deficiency, unspecified
CPT/HCPCS: 36415; 70450; 71046; 80053; 80061; 80076; 80306; 81003; 82075; 82550; 82553; 83036; 83735; 84436; 84443; 84480; 84484; 85025; 86140; 99285

== ENCOUNTER 2019-12-06 18:29 | Inpatient (IN) | payer BC, MEDICARE, OTHER ==
[2019-12-06 19:29] LABS: Appearance,Urine Clear (Clear); Bacteria,Urine Rare /hpf; Bilirubin,Urine Negative (Negative); Blood,Urine Trace (Negative); Color,Urine Light Yellow; Glucose,Urine (UA) Negative (Negative); Ketones,Urine Negative (Negative); Leukocyte Esterase,Urine Large (Negative); Nitrite,Urine Negative (Negative); Protein,Urine Negative (Negative); RBC,Urine 5 /hpf (0-5); Specific Gravity,Urine 1.004 (1.001-1.035); Squamous Epithelial Cell,Urine <1 /hpf (0-4); Urobilinogen,Urine <2.0 mg/dL (<2.0); WBC,Urine 45 /hpf (0-5)
[2019-12-06 19:31] LABS: Amphetamine Screen,Urine Not Detected (NotDetected); Barbiturate Screen,Urine Not Detected (NotDetected); Benzodiazepines Screen,Urine Not Detected (NotDetected); Cocaine Screen,Urine Not Detected (NotDetected); Methadone Screen, Urine Not Detected (NotDetected); Opiate Screen,Urine Not Detected (NotDetected); Oxycodone Screen, Urine Not Detected (NotDetected); Phencyclidine Screen,Urine Not Detected (NotDetected); Tricyclic Antidepressant,Urine Not Detected (NotDetected); Urn Cannabinoid Scrn Not Detected (NotDetected)
[2019-12-06] MEDS ORDERED: cefTRIAXone 1,000 MG VIAL (IM USE) IM STA (19:38)
--- NOTE | 2019-12-06 19:42 | ED ---
Psych HPI - General Source: police, EMS Mode of arrival: EMS <Wayne King - Last Filed: 12/06/19 19:39> <Chris Bravo - Last Filed: 12/06/19 22:36> - General Chief Complaint: Psychiatric Symptoms Stated Complaint: Mental Health Time Seen by Provider: 12/06/19 18:35 - History of Present Illness Initial Comments: Patient is a 74-year-old female with history of depression and anxiety and psychosis presents to the emergency department with a chief complaint of petition. Patient was brought to the ED via PD. Patient missed her appointment today at [facility] who contacted the police department. Daughter states the patient has visual and auditory hallucinations. Patient states "I have the wrong diagnosis". Patient denies any medical complaints at this time. Denies any suicidal, homicidal thoughts or ideations. Patient is requesting a shower. (Wayne King) - Related Data Home Medications Medication Instructions Recorded Confirmed Multivitamins, Thera [Multivitamin 1 tab PO DAILY 11/09/18 02/15/19 (formulary)] Previous Rx's Medication Instructions Recorded Benztropine Mesylate [Cogentin] 0.5 mg PO HS #30 tab 03/02/19 Nicotine 7Mg/24Hr Patch [Habitrol] 1 patch TRANSDERM DAILY #10 patch 03/02/19 risperiDONE [RisperDAL] 0.5 mg PO DAILY #30 tab 03/02/19 risperiDONE [RisperDAL] 1 mg PO HS #30 tab 03/02/19 Allergies Allergy/AdvReac Type Severity Reaction Status Date / Time codeine Allergy Unknown Verified 12/06/19 18:55 Review of Systems ROS Other: All systems not noted in ROS Statement are negative. <Wayne King - Last Filed: 12/06/19 19:39> ROS Other: All systems not noted in ROS Statement are negative. <Chris Bravo - Last Filed: 12/06/19 22:36> ROS Statement: Those systems with pertinent positive or pertinent negative responses have been documented in the HPI. Past Medical History Past Medical History: Thyroid Disorder Additional Past Medical History / Comment(s): bronchitis, vit b deficiency, stage 3 cervical cancer-sx only, in past took meds for thyroid but was taken off it 15 years ago, upper/lower dental bridges History of Any Multi-Drug Resistant Organisms: None Reported Past Surgical History: Appendectomy, Hysterectomy Past Anesthesia/Blood Transfusion Reactions: No Reported Reaction Past Psychological History: No Psychological Hx Reported Smoking Status: Current some day smoker Past Alcohol Use History: Rare Past Drug Use History: None Reported - Past Family History Mother Family Medical History: Cancer Additional Family Medical History / Comment(s): colon cancer Father Family Medical History: Cancer Additional Family Medical History / Comment(s): lung cancer <Wayne King - Last Filed: 12/06/19 19:39> General Exam Limitations: no limitations General appearance: alert, in no apparent distress Head exam: Present: atraumatic, normocephalic, normal inspection Eye exam: Present: normal appearance, PERRL, EOMI Pupils: Present: normal accommodation ENT exam: Present: normal exam Neck exam: Present: normal inspection Respiratory exam: Present: normal lung sounds bilaterally Cardiovascular Exam: Present: regular rate, normal rhythm, normal heart sounds Extremities exam: Present: normal inspection, full ROM Back exam: Present: normal inspection, full ROM Neurological exam: Present: alert, oriented X3 Psychiatric exam: Present: normal mood, flat affect Skin exam: Present: warm, dry, intact, normal color <Wayne King - Last Filed: 12/06/19 19:39> Course Vital Signs 12/06/19 18:55 Temperature 98.6 F Pulse Rate 96 Respiratory 18 Rate Blood Pressure 137/77 O2 Sat by Pulse 97 Oximetry Medical Decision Making <Wayne King - Last Filed: 12/06/19 19:39> - Medical Decision Making Patient is 74-year-old female presenting to the emergency department with a chief complaint of petition. Physical examination is unremarkable. Patient is denying urinary symptoms. UA shows a urinary tract infection. Patient will be given Rocephin in the ED. Drug screen negative. Patient cleared medically for psychiatric evaluation. (Wayne King) - Lab Data Lab Results 12/06/19 Range/Units 19:09 Urine Color Light Yellow Urine Appearance Clear (Clear) Urine pH 7.0 (5.0-8.0) Ur Specific [place] 1.004 (1.001-1.035) Urine Protein Negative (Negative) Urine Glucose (UA) Negative (Negative) Urine Ketones Negative (Negative) Urine Blood Trace H (Negative) Urine Nitrite Negative (Negative) Urine Bilirubin Negative (Negative) Urine Urobilinogen <2.0 (<2.0) mg/dL Ur Leukocyte Esterase Large H (Negative) Urine RBC 5 (0-5) /hpf Urine WBC 45 H (0-5) /hpf Ur Squamous Epith Cells <1 (0-4) /hpf Urine Bacteria Rare H (None) /hpf Urine Opiates Screen Not Detected (NotDetected) Ur Oxycodone Screen Not Detected (NotDetected) Urine Methadone Screen Not Detected (NotDetected) Ur Propoxyphene Screen Not Detected (NotDetected) Ur Barbiturates Screen Not Detected (NotDetected) U Tricyclic Antidepress Not Detected (NotDetected) Ur Phencyclidine Scrn Not Detected (NotDetected) Ur Amphetamines Screen Not Detected (NotDetected) U Methamphetamines Scrn Not Detected (NotDetected) U Benzodiazepines Scrn Not Detected (NotDetected) Urine Cocaine Screen Not Detected (NotDetected) U Marijuana (THC) Screen Not Detected (NotDetected) Disposition <Wayne King - Last Filed: 12/06/19 19:39> Time of Disposition: 22:36 <Chris Bravo - Last Filed: 12/06/19 22:36> Clinical Impression: Psychosis Disposition: TRANSFER TO PSYCH HOSP/UNIT Condition: Fair
[2019-12-06] MEDS ORDERED: ZIPRASIDONE 20 MG VIAL IM PRN (22:48)
[2019-12-06] MEDS ORDERED: LORazepam 1 MG TAB PO PRN (22:48)
[2019-12-06] MEDS ORDERED: MAG HYDROX/AL HYDROX/SIMETH 30 ML CUP PO PRN (22:48)
[2019-12-06] MEDS ORDERED: MAGNESIUM HYDROXIDE 2,400 MG/10 ML CUP PO PRN (22:48)
[2019-12-06] MEDS ORDERED: ACETAMINOPHEN TAB 325 MG TAB PO PRN (22:48)
[2019-12-07] MEDS ORDERED: NICOTINE 7MG/24HR PATCH TRANSDERM SCH (09:00)
[2019-12-07 09:45] LABS: Basophils % (A) 0 %; Eosinophils % (A) 1 %; HGB 15.1 gm/dL (11.4-16.0); Lymphocytes # (A) 1.4 k/uL (1.0-4.8); Lymphocytes % (A) 29 %; MCH 31.1 pg (25.0-35.0); MCHC 32.8 g/dL (31.0-37.0); MCV 94.8 fL (80.0-100.0); Mean Platelet Volume 7.1; Monocytes # (A) 0.2 k/uL (0-1.0); Monocytes % (A) 5 %; Neutrophils # (A) 2.9 k/uL (1.3-7.7); Neutrophils % (A) 63 %; Platelet Count 280 k/uL (150-450); RBC 4.85 m/uL (3.80-5.40); RDW 12.8 % (11.5-15.5); WBC 4.6 k/uL (3.8-10.6)
[2019-12-07 10:04] LABS: ALT 20 U/L (4-34); AST 37 U/L (14-36); African American GFR (CKD) >90 (>60 ml/min/1.73 sqM); Albumin 4.2 g/dL (3.5-5.0); Alkaline Phosphatase 61 U/L (38-126); Anion Gap 9 mmol/L; Blood Urea Nitrogen 9 mg/dL (7-17); Calcium 9.8 mg/dL (8.4-10.2); Carbon Dioxide 27 mmol/L (22-30); Chloride 104 mmol/L (98-107); Cholesterol 164 mg/dL (<200); Glucose 177 mg/dL (74-99); HDL Cholesterol 80 mg/dL (40-60); LDL Cholesterol,Calculated 71 mg/dL (0-99); Non-African American GFR(CKD) >90 (>60 ml/min/1.73 sqM); Potassium 4.5 mmol/L (3.5-5.1); Sodium 140 mmol/L (137-145); Total Bilirubin 0.8 mg/dL (0.2-1.3); Total Protein 7.2 g/dL (6.3-8.2); Triglycerides 66 mg/dL (<150)
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
--- NOTE | 2019-12-07 16:23 | P.CONS ---
History of Present Illness - Reason for Consult Consult date: 12/07/19 - History of Present Illness The patient is a 74 yo F with a PMH of schizophrenia who was brought into the hospital under police custody due to missing an appt with [facility]. The patient was noted to be repeatedly saying that she was "given the wrong diagnosis". The patient was admitted to the [facility] where she was seen earlier today. She appeared paranoid though denied any complaints. The patient underwent an extensive evaluation in the ED w/ WBC count 4.6, hemoglobin 15.1, platelets 280, sodium 140, potassium 4.5, BUN 9, creatinine 0.6, glucose 177, AST 37, ALT 20, UA consistent with UTI, and a UA that was unremarkable. At time of the interview, the patient denied chest pain, SOB, nausea, vomiting, fever, chills, abdominal pain, diarrhea, or dizzines. She also denied dysuria, urinary frequency, or urgency. Review of Systems Pertinent positives and negatives as discussed in HPI, a complete review of systems was performed and all other systems are negative. Past Medical History Past Medical History: Thyroid Disorder Additional Past Medical History / Comment(s): bronchitis, vit b deficiency, stage 3 cervical cancer-sx only, in past took meds for thyroid but was taken off it 15 years ago, upper/lower dental bridges History of Any Multi-Drug Resistant Organisms: None Reported Past Surgical History: Appendectomy, Hysterectomy Past Anesthesia/Blood Transfusion Reactions: No Reported Reaction Past Psychological History: No Psychological Hx Reported Smoking Status: Current some day smoker Past Alcohol Use History: Rare Past Drug Use History: None Reported - Past Family History Mother Family Medical History: Cancer Additional Family Medical History / Comment(s): colon cancer Father Family Medical History: Cancer Additional Family Medical History / Comment(s): lung cancer Medications and Allergies Home Medications Medication Instructions Recorded Confirmed Type risperiDONE [RisperDAL] 1 mg PO HS #30 tab 03/02/19 12/06/19 Rx Allergies Allergy/AdvReac Type Severity Reaction Status Date / Time codeine Allergy Unknown Verified 12/06/19 23:13 Physical Exam Vitals: Vital Signs Temp Pulse Pulse Resp BP BP Pulse Ox 12/07/19 06:42 98.1 F 71 16 128/61 97 12/06/19 23:34 98.4 F 94 16 143/73 12/06/19 18:55 98.6 F 96 18 137/77 97 Intake and Output 12/07/19 12/07/19 12/07/19 06:59 14:59 22:59 Other: Weight 62.959 kg General: non toxic, no distress, appears at stated age, normal weight Derm: no unusual rashes/lesions no unusual ecchymoses, warm, dry Head: atraumatic, normocephalic, symmetric Eyes: EOMI, no lid lag, anicteric sclera, pupils equal round reactive to light ENT: Nose and ears atraumatic, no thrush, no pharyngeal erythema Neck: No thyromegaly, no cervical lymphadenopathy, trachea midline, supple Mouth: no lip lesion, mucus membranes moist Cardiovascular: S1S2 reg, no murmur, positive posterior tibial pulse bilateral, no edema, capillary refill less than 2 seconds Lungs: CTA bilateral, no rhonchi, no rales , no accessory muscle use Abdominal: soft, nontender to palpation, no guarding, no appreciable organomegaly, normal bowel sounds Ext: no gross muscle atrophy, muscle strength 5 out of 5 in all 4 extremities grossly, no contractures, Neuro: CN II-XI grossly intact, light touch intact all 4 extremities, finger to nose within normal limits, Psych: Alert, oriented, paranoid with flat affect Results CBC & Chem 7: 12/07/19 09:14 12/07/19 09:14 Labs: Abnormal Lab Results - Last 24 Hours (Table) 12/06/19 12/07/19 Range/Units 19:09 09:14 Glucose 177 H (74-99) mg/dL AST 37 H (14-36) U/L HDL Cholesterol 80 H (40-60) mg/dL Urine Blood Trace H (Negative) Ur Leukocyte Esterase Large H (Negative) Urine WBC 45 H (0-5) /hpf Urine Bacteria Rare H (None) /hpf Assessment and Plan Plan: Asymptomatic bacteriuria -Hold off on antibiotics Hyperglycemia -Obtain A1C -Blood glucose monitoring Psychosis -As per psychiatry Low risk for DVT since patient ambulatory Thank you for allowing us to participate in the care of this patient. We will follow peripherally. Do not hesitate to contact us with questions. Someone can be reached from the [facility] hospitalist group at all hours of the day at [phone].
[2019-12-07 17:36] LABS: Glucose,Whole Blood 91 mg/dL (75-99)
[2019-12-07] MEDS: INSULIN ASPART (NovoLOG) 100 UNIT/ML VIAL SQ SCH (17:41)
[2019-12-07 19:33] LABS: Hemoglobin A1C 5.4 % (4.0-6.0)
[2019-12-07] MEDS ORDERED: risperiDONE 1 MG TAB PO SCH (21:00)
[2019-12-08] MEDS: INSULIN ASPART (NovoLOG) 100 UNIT/ML VIAL SQ SCH ×3 (07:59→18:14)
[2019-12-08] MEDS: ARIPiprazole 5 MG TAB PO SCH (08:35)
--- NOTE | 2019-12-08 13:42 | P.PN ---
Progress Note - Text Progress Note Date: 12/08/19 Interval history: The patient was seen sitting on her bed staring at the wall and was agreeable to speak to life insurance underwriter in the office. Patient carried multiple pieces of paper about her medical condition and medications. Patient was superficially cooperative however was illogical and perseverated on not taking medications. She states that her doctor in [place] "cleared me of medications". Patient has poor judgment and insight and was difficult to redirect. She listed off multiple side effects from the Abilify and stated that "I've had a stroke before that's why can take the medication". She claims to have an "okay mood" and denies any depression at this time. Patient is loose and rambles. At this time patient denies any suicidal or homicidal ideations intent or plan. Denies any Auditory or visual hallucinations. Patient denies any side effects from the medications and has been compliant with meds. Mental status exam: General Appearance: Patient appears to be stated age is alert, attempts to cooperate, poor hygiene and grooming. Behavior: No agitated behavior. Patient is calm yet difficult to redirect. Speech: Patient's speech is fluent and nonpressured. Mood/Affect: Mood is "okay", affect is congruent and blunted. Suicidality/Homicidality: Patient denies having any suicidal or homicidal ideation intent or plan. Perceptions: Patient denies any auditory or visual hallucinations. Though content/process: Poor insight, perseverates on medications. [place] and has loose associations and rambles. Memory and concentration: AOX3, grossly intact for the purposes of this session Judgment and insight: Poor Assessment/Plan: Continue with current diagnosis. Patient continues to meet criteria for inpatient psychiatric admission for symptom stabilization and safety.Patient will be maintained on current psychotropic medication regimen. Patient was encouraged to begin taking her medications, she refused her Abilify this morning. Patient was informed of the court process and answered her questions related to the medication however patient perseverates on not taking medications at this time. Monitor for medication compliance and for any psychotropic medication side effects. Will continue to monitor ongoing response to treatment. Vital signs reviewed.
[2019-12-09] MEDS: INSULIN ASPART (NovoLOG) 100 UNIT/ML VIAL SQ SCH ×3 (08:17→17:31)
[2019-12-09] MEDS: ARIPiprazole 5 MG TAB PO SCH (08:17)
--- NOTE | 2019-12-09 11:28 | P.PN ---
Progress Note - Text Progress Note Date: 12/09/19 Interval history: The patient was seen sitting on her bed staring at the wall and talking to herself and when she was approached by insurance underwriter patient collected her belongings slowly and ignored insurance underwriter completely. Patient proceeded to walk away from insurance underwriter in the opposite direction. Nurses Supervisor attempted again later in the morning to speak with patient however patient proceeded to ignore insurance underwriter and walk away once again. Vital signs reviewed, patient continues to refuse her medications. Mental status exam: General Appearance: Patient appears to be stated age is alert, uncooperative, poor hygiene and grooming. Behavior: No agitated behavior. Patient is calm Speech: Unable to assess. Mood/Affect: Unable to assess Suicidality/Homicidality: Unable to assess Perceptions: Unable to assess yet patient was speaking to herself in her room staring at the wall. Though content/process: Unable to assess. Memory and concentration: Unable to assess. Judgment and insight: Poor Assessment/Plan: Continue with current diagnosis. Patient continues to meet criteria for inpatient psychiatric admission for symptom stabilization and safety.Patient will be maintained on current psychotropic medication regimen. Patient continues to refuse her Abilify. Monitor for medication compliance and for any psychotropic medication side effects. Will continue to monitor ongoing response to treatment. Vital signs reviewed.
[2019-12-10] MEDS: INSULIN ASPART (NovoLOG) 100 UNIT/ML VIAL SQ SCH ×3 (09:19→17:51)
[2019-12-10] MEDS: ARIPiprazole 5 MG TAB PO SCH ×2 (09:20→12:14)
--- NOTE | 2019-12-10 11:32 | P.PN ---
Subjective Progress Note Date: 12/10/19 Principal diagnosis: PRINCIPLE DIAGNOSIS: Schizophrenia, rule out psychotic disorder secondary to underlying medical condition Attempted to see the patient. The chart was reviewed and the case was discussed with the staff on the unit. The patient refused to have the session and did not answer any questions. The patient remain isolative and preoccupied and appears to be responding to internal cues. The patient has been refusing her care including the medications. Abnormal labs were noted. Medical consult nephrology. Objective - Vital Signs Vital signs: Vital Signs Temp 97.8 F 12/09/19 06:53 Pulse 80 12/10/19 05:22 Resp 14 12/10/19 05:22 BP 118/66 12/10/19 05:22 Pulse Ox 97 12/07/19 06:42 Intake & Output 12/09/19 12/10/19 12/10/19 18:59 06:59 18:59 Weight 62.9 kg - Exam Mental status exam: General Appearance: Patient appears to be stated age is alert, uncooperative, poor hygiene and grooming. Behavior: No agitated behavior. Patient is calm Speech: Unable to assess. Mood/Affect: Unable to assess Suicidality/Homicidality: Unable to assess Perceptions: Unable to assess yet patient was speaking to herself in her room staring at the wall. Though content/process: Unable to assess. Memory and concentration: Unable to assess. Judgment and insight: Poor - Labs CBC & Chem 7: 12/07/19 09:14 12/07/19 09:14 Assessment and Plan Assessment: Chronic paranoid schizophrenia Plan: Assessment/Plan: Continue with current diagnosis. Patient continues to meet criteria for inpatient psychiatric admission for symptom stabilization and safety.Patient will be maintained on current psychotropic medication regimen. Patient continues to refuse her Abilify. Monitor for medication compliance and for any psychotropic medication side effects. Will continue to monitor ongoing response to treatment.
[2019-12-10] MEDS: NITROFURANTOIN MONOHYD/M-CRYST 100 MG CAP PO SCH ×3 (12:14→21:05)
[2019-12-11] MEDS: INSULIN ASPART (NovoLOG) 100 UNIT/ML VIAL SQ SCH ×3 (09:16→17:56)
[2019-12-11] MEDS: NITROFURANTOIN MONOHYD/M-CRYST 100 MG CAP PO SCH ×2 (09:17→20:57)
[2019-12-11] MEDS: ARIPiprazole 5 MG TAB PO SCH (09:17)
--- NOTE | 2019-12-11 13:03 | P.PN ---
Subjective Progress Note Date: 12/11/19 Principal diagnosis: PRINCIPLE DIAGNOSIS: Schizophrenia, rule out psychotic disorder secondary to underlying medical condition The patient was seen and the chart was reviewed. The patient case was discussed with the staff and the team meeting. The patient refused to come and to the interview room for the session and was seen in the lounge. The patient refused to answer any questions. "I already talked to you yesterday". The patient continues to refuse medications and remained confused and disoriented at times. The patient denies any auditory or visual hallucinations but appears very preoccupied and responding to internal cues. The patient denies any active suicidal or homicidal ideations. She has been refusing all of her medications. Objective - Vital Signs Vital signs: Vital Signs Temp 98.1 F 12/11/19 04:54 Pulse 77 12/11/19 04:54 Resp 16 12/11/19 04:54 BP 123/67 12/11/19 04:54 Pulse Ox 98 12/11/19 04:54 - Exam Mental status exam: General Appearance: Patient appears to be stated age is alert, uncooperative, p oor hygiene and grooming. Behavior: No agitated behavior. Patient is calm Speech: Mumbling and limited to short answers. Mood/Affect: Affect is constricted Suicidality/Homicidality: Denies Perceptions: Unable to assess yet patient was speaking to herself in her room staring at the wall. Though content/process: Unable to assess. Memory and concentration: Unable to assess. Judgment and insight: Poor - Labs CBC & Chem 7: 12/07/19 09:14 12/07/19 09:14 Assessment and Plan Assessment: Chronic paranoid schizophrenia Plan: Assessment/Plan: Continue with current diagnosis. Patient continues to meet criteria for inpatient psychiatric admission for symptom stabilization and safety.Patient will be maintained on current psychotropic medication regimen. Patient continues to refuse her Abilify. Monitor for medication compliance and for any psychotropic medication side effects. Will continue to monitor ongoing response to treatment. Clinical CERT was completed. A beating court date tomorrow.
[2019-12-12] MEDS: NITROFURANTOIN MONOHYD/M-CRYST 100 MG CAP PO SCH ×2 (07:34→21:02)
[2019-12-12] MEDS: ARIPiprazole 5 MG TAB PO SCH (07:34)
[2019-12-12] MEDS: INSULIN ASPART (NovoLOG) 100 UNIT/ML VIAL SQ SCH ×3 (07:34→18:10)
--- NOTE | 2019-12-12 12:22 | P.PN ---
Subjective Progress Note Date: 12/12/19 The patient was seen and the chart was reviewed. The patient case was discussed with the staff and the team meeting. The patient refused to answer any questions or talk to me. She was seen in her room she will. She was laying in bed with her face covered. The patient did voice that she did not think that she needed any medications or any treatment at this time and just wants to go home. The patientremained withdrawn and isolative on the unit and spends most of the time in her room. Patient appears to be preoccupied and at times has been seen talking to herself. Objective - Vital Signs Vital signs: Vital Signs Temp 98.1 F 12/11/19 04:54 Pulse 77 12/11/19 04:54 Resp 16 12/11/19 04:54 BP 123/67 12/11/19 04:54 Pulse Ox 98 12/11/19 04:54 - Exam Mental status exam: General Appearance: Patient appears to be stated age is alert, uncooperative, poor hygiene and grooming. Behavior: No agitated behavior. Patient is calm Speech: Mumbling and limited to short answers. Mood/Affect: Affect is constricted Suicidality/Homicidality: Denies Perceptions: Unable to assess yet patient was speaking to herself in her room staring at the wall. Though content/process: Unable to assess. Memory and concentration: Unable to assess. Judgment and insight: Poor - Labs CBC & Chem 7: 12/07/19 09:14 12/07/19 09:14 Assessment and Plan Assessment: Chronic paranoid schizophrenia Plan: Assessment/Plan: Continue with current diagnosis. Patient continues to meet criteria for inpatient psychiatric admission for symptom stabilization and safety.Patient will be maintained on current psychotropic medication regimen. Patient continues to refuse her Abilify. Monitor for medication compliance and for any psychotropic medication side effects. Will continue to monitor ongoing response to treatment. Clinical CERT was completed. Awaiting court hearing
[2019-12-13] MEDS: INSULIN ASPART (NovoLOG) 100 UNIT/ML VIAL SQ SCH ×3 (08:15→17:54)
[2019-12-13] MEDS: ARIPiprazole 5 MG TAB PO SCH (10:23)
[2019-12-13] MEDS: NITROFURANTOIN MONOHYD/M-CRYST 100 MG CAP PO SCH ×2 (10:24→21:57)
--- NOTE | 2019-12-13 11:56 | P.PN ---
Subjective Progress Note Date: 12/13/19 Principal diagnosis: PRINCIPLE DIAGNOSIS: Schizophrenia, rule out psychotic disorder secondary to underlying medical condition The patient was seen in the hallway. She refused to have a session and to come to my office. The chart was reviewed and the case was discussed with the staff on the unit. The patient remained withdrawn and isolative. She remained preoccupied and paranoid. The patient continues to refuse medications and voices that she does not think that she needs any treatment. The patient shows lack of insight and impaired judgment. The patient denies any auditory or visual hallucinations but appears preoccupied and responding to internal cues. She refused to answer any further questions. The patient had a court hearing yesterday A Court Order Was Obtained regarding Involuntary Treatment. Objective - Vital Signs Vital signs: Vital Signs Temp 98.7 F 12/13/19 05:23 Pulse 77 12/13/19 05:23 Resp 12 12/13/19 05:23 BP 107/64 12/13/19 05:23 Pulse Ox 98 12/11/19 04:54 - Exam Mental status exam: General Appearance: Patient appears to be stated age is alert, uncooperative, poor hygiene and grooming. Behavior: No agitated behavior. Patient is calm Speech: Mumbling and limited to short answers. Mood/Affect: Affect is constricted Suicidality/Homicidality: Denies Perceptions: Unable to assess yet patient was speaking to herself in her room staring at the wall. Though content/process: Unable to assess. Memory and concentration: Unable to assess. Judgment and insight: Poor - Labs CBC & Chem 7: 12/07/19 09:14 12/07/19 09:14 Assessment and Plan Assessment: Chronic paranoid schizophrenia Plan: Assessment/Plan: Continue with current diagnosis. Patient continues to meet criteria for inpatient psychiatric admission for symptom stabilization and safety.Patient will be maintained on current p sychotropic medication regimen. Discontinue Abilify and Will restart patient on Zyprexa situs 5 mg by mouth twice a day and Zyprexa 5 mg IM if refuses by mouth medications. Monitor for medication compliance and for any psychotropic medication side effects. Will continue to monitor ongoing response to treatment.
[2019-12-13] MEDS: OLANZapine 10 MG VIAL IM PRN (21:51)
[2019-12-13] MEDS: OLANZapine ODT 5 MG TAB PO SCH (21:57)
[2019-12-14] MEDS: INSULIN ASPART (NovoLOG) 100 UNIT/ML VIAL SQ SCH ×3 (07:46→18:35)
[2019-12-14] MEDS: OLANZapine ODT 5 MG TAB PO SCH ×2 (10:04→22:15)
[2019-12-14] MEDS: NITROFURANTOIN MONOHYD/M-CRYST 100 MG CAP PO SCH ×2 (10:04→22:15)
[2019-12-14] MEDS: OLANZapine 10 MG VIAL IM PRN ×3 (10:20→23:50)
[2019-12-14] MEDS ORDERED: WATER FOR INJECTION, STERILE 10 ML IV ONE (10:23)
--- NOTE | 2019-12-14 11:12 | P.PN ---
Subjective Progress Note Date: 12/14/19 Principal diagnosis: PRINCIPLE DIAGNOSIS: Schizophrenia, rule out psychotic disorder secondary to underlying medical condition The patient was seen and chart was reviewed. The case was discussed with the staff on the unit. The patient continues to report doing okay and shows lack of insight into her illness. The patient does not think that she is the patient and that she is prescribed any medications. The patient reports fair sleep and appetite. She continues to refuse medications and received Zyprexa IM 5 mg twice a day for refusing the oral medications. The patient denies any auditory or visual hallucinations but appears very preoccupied and appears to be responding to internal cues. The patient was seen by the staff talking to herself. The patient denies any suicidal or homicidal ideations at this time. Objective - Vital Signs Vital signs: Vital Signs Temp 98.7 F 12/13/19 05:23 Pulse 77 12/13/19 05:23 Resp 12 12/13/19 05:23 BP 107/64 12/13/19 05:23 Pulse Ox 98 12/11/19 04:54 - Exam Mental status exam: General Appearance: Patient appears to be stated age is alert, uncooperative, poor hygiene and grooming. Behavior: No agitated behavior. Patient is calm Speech: Mumbling and limited to short answers. Mood/Affect: Affect is constricted Suicidality/Homicidality: Denies Perceptions: Unable to assess yet patient was speaking to herself in her room staring at the wall. Though content/process: Unable to assess. Memory and concentration: Unable to assess. Judgment and insight: Poor - Labs CBC & Chem 7: 12/07/19 09:14 12/07/19 09:14 Assessment and Plan Assessment: Chronic paranoid schizophrenia Plan: Assessment/Plan: Continue with current diagnosis. Patient continues to meet criteria for inpatient psychiatric admission for symptom stabilization and safety.Patient will be maintained on current psychotropic medication regimen. Discontinue Abilify. Will restart patient on Zyprexa situs 5 mg by mouth twice a day and Zyprexa 5 mg IM if refuses by mouth medications. Monitor for medication compliance and for any psychotropic medication side effects. Will continue to monitor ongoing response to treatment.
[2019-12-15] MEDS: OLANZapine ODT 5 MG TAB PO SCH ×2 (09:22→22:10)
[2019-12-15] MEDS: INSULIN ASPART (NovoLOG) 100 UNIT/ML VIAL SQ SCH ×3 (09:22→17:42)
[2019-12-15] MEDS: NITROFURANTOIN MONOHYD/M-CRYST 100 MG CAP PO SCH ×2 (09:22→22:10)
[2019-12-15] MEDS: OLANZapine 10 MG VIAL IM PRN ×2 (10:29→22:41)
--- NOTE | 2019-12-15 15:47 | P.PN ---
Progress Note - Text Progress Note Date: 12/15/19 Interval history: Patient is seen in cross coverage today. I saw the patient in the hallway and she relays that it's the other Stephanie. She does not seem agreeable to meet with me. I confirmed with staff regarding her being the patient I was going to assess and when reapproached the patient refused to meet with me. Mental status exam: The patient is alert, not cooperative to meeting with me today. She does not present with any significant agitation. Plan: will reattempt to meet with the patient tomorrow. Continue with current treatment regimen. Continue to monitor patient status and response to treatment.
[2019-12-16] MEDS: INSULIN ASPART (NovoLOG) 100 UNIT/ML VIAL SQ SCH (08:04)
[2019-12-16] MEDS: NITROFURANTOIN MONOHYD/M-CRYST 100 MG CAP PO SCH ×2 (10:37→22:09)
[2019-12-16] MEDS: OLANZapine ODT 5 MG TAB PO SCH ×2 (10:37→22:09)
[2019-12-16] MEDS: OLANZapine 10 MG VIAL IM PRN ×2 (10:55→22:38)
--- NOTE | 2019-12-16 14:14 | P.PN ---
Progress Note - Text Progress Note Date: 12/16/19 Interval history: Patient again refuses to meet with me today. She is seen in the hallway and is not agreeable to come to the interview room. Mental status exam: Patient is seen in the hallway. She is not agreeable to meet with me again today. She does not show any significant degree of agit ation. Plan: Continue current treatment regimen. Continue to monitor for any medication side effects and monitor her ongoing response to treatment.
[2019-12-17] MEDS: NITROFURANTOIN MONOHYD/M-CRYST 100 MG CAP PO SCH (11:10)
[2019-12-17] MEDS: OLANZapine ODT 5 MG TAB PO SCH ×3 (11:10→23:00)
[2019-12-17] MEDS: OLANZapine 10 MG VIAL IM PRN (11:30)
--- NOTE | 2019-12-17 13:57 | P.PN ---
Subjective Progress Note Date: 12/17/19 Principal diagnosis: PRINCIPLE DIAGNOSIS: Schizophrenia, rule out psychotic disorder secondary to underlying medical condition The patient seen in the chart was reviewed. The case was discussed with the staff on the unit and team meeting. The patient continues to refuse medication and has been getting Zyprexa IM twice a day. The patient appears to be t olerating the medications without any problems. The patient insists that she does not need the medications and is demanding to be discharged so she could follow-up "holistically". The patient reports fair sleep and appetite. The patient remained withdrawn and isolative on the unit. She refuses to participate in any unit activities. The patient appears to be preoccupied and responding to internal cues although denies any auditory or visual hallucinations. She denies any suicidal or homicidal ideations at this time. Objective - Vital Signs Vital signs: Vital Signs Temp 97.6 F 12/17/19 06:59 Pulse 72 12/17/19 06:59 Resp 16 12/17/19 06:59 BP 140/65 12/17/19 06:59 Pulse Ox 97 12/17/19 06:59 - Exam Mental status exam: General Appearance: Patient appears to be stated age is alert, uncooperative, poor hygiene and grooming. Behavior: No agitated behavior. Patient is calm Speech: Rambling and circumstantial speech. Mood/Affect: Affect is constricted Suicidality/Homicidality: Denies Perceptions: Unable to assess yet patient was speaking to herself in her room staring at the wall. Though content/process: Unable to assess. Memory and concentration: Unable to assess. Judgment and insight: Poor - Labs CBC & Chem 7: 12/07/19 09:14 12/07/19 09:14 Assessment and Plan Assessment: Chronic paranoid schizophrenia Plan: Assessment/Plan: Continue with current diagnosis. Patient continues to meet criteria for inpatient psychiatric admission for symptom stabilization and safety.Patient will be maintained on current psychotropic medication regimen. Discontinue Abilify. Increase Zyprexa situs 5 mg by mouth 3 times a day and Zyprexa 5 mg IM if refuses by mouth medications. Monitor for medication compliance and for any psychotropic medication side eff ects. Will continue to monitor ongoing response to treatment.
[2019-12-17] MEDS ORDERED: OLANZapine 10 MG VIAL IM PRN (16:00)
[2019-12-18] MEDS: OLANZapine ODT 5 MG TAB PO SCH ×3 (09:24→20:56)
--- NOTE | 2019-12-18 10:58 | P.PN ---
Subjective Progress Note Date: 12/18/19 Principal diagnosis: PRINCIPLE DIAGNOSIS: Schizophrenia, rule out psychotic disorder secondary to underlying medical condition Patient seen and the chart was reviewed. The case was discussed with the staff and team meeting. The patient is a little more appropriate on the unit. She has been a little more compliant with the medications but remained somatically focused. She remained focused on getting discharged from the hospital. She continues to show lack of insight into her illness and the treatment. The patient denies any auditory or visual hallucinations but remained withdrawn and isolative on the unit. She appears to be responding to internal cues at times. She is superficially pleasant and cooperative during the interview. She denies any suicidal or homicidal ideations at this time. Objective - Vital Signs Vital signs: Vital Signs Temp 97.5 F L 12/18/19 06:35 Pulse 82 12/18/19 06:35 Resp 17 12/18/19 06:35 BP 115/71 12/18/19 06:35 Pulse Ox 97 12/18/19 06:35 - Exam Mental status exam: General Appearance: Patient appears to be stated age is alert, uncooperative, poor hygiene and grooming. Behavior: No agitated behavior. Patient is calm Speech: Rambling and circumstantial speech. Mood/Affect: Affect is constricted Suicidality/Homicidality: Denies Perceptions: Unable to assess yet patient was speaking to herself in her room staring at the wall. Though content/process: Unable to assess. Memory and concentration: Unable to assess. Judgment and insight: Poor - Labs CBC & Chem 7: 12/07/19 09:14 12/07/19 09:14 Assessment and Plan Assessment: Chronic paranoid schizophrenia Plan: Assessment/Plan: Continue with current diagnosis. Patient continues to meet criteria for inpatient psychiatric admission for symptom stabilization and safety.Patient will be maintained on current psychotropic medication regimen. Discontinue Abilify. Continue Zyprexa situs 5 mg by mouth 3 times a day and Zyprexa 5 mg IM if refuses by mouth medications. Monitor for medication compliance and for any psychotropic medication side effects. Will continue to monitor ongoing response to treatment.
[2019-12-19] MEDS: OLANZapine ODT 5 MG TAB PO SCH (09:43)
--- NOTE | 2019-12-19 11:18 | P.PN ---
Subjective Progress Note Date: 12/19/19 Principal diagnosis: PRINCIPLE DIAGNOSIS: Schizophrenia, rule out psychotic disorder secondary to underlying medical condition Objective - Vital Signs Vital signs: Vital Signs Temp 97.8 F 12/19/19 06:55 Pulse 73 12/19/19 06:55 Resp 18 12/19/19 06:55 BP 118/69 12/19/19 06:55 Pulse Ox 97 12/18/19 06:35 - Exam Mental status exam: General Appearance: Patient appears to be stated age is alert, uncooperative, poor hygiene and grooming. Behavior: No agitated behavior. Patient is calm Speech: Rambling and circumstantial speech. Mood/Affect: Affect is constricted Suicidality/Homicidality: Denies Perceptions: Unable to assess yet patient was speaking to herself in her room staring at the wall. Though content/process: Unable to assess. Memory and concentration: Unable to assess. Judgment and insight: Poor - Labs CBC & Chem 7: 12/07/19 09:14 12/07/19 09:14 Assessment and Plan Assessment: Chronic paranoid schizophrenia Plan: Assessment/Plan: Continue with current diagnosis. Patient continues to meet criteria for inpatient psychiatric admission for symptom stabilization and safety.Patient will be maintained on current psychotropic medication regimen. Discontinue Zyprexa. Start Invega 6 mg PO qhs and Zyprexa 5 mg IM if refuses by mouth medications. Monitor for medication compliance and for any psychotropic medication side effects. Will continue to monitor ongoing response to treatment.
[2019-12-19] MEDS: PALIPERIDONE 6 MG TAB.ER.24 PO SCH (21:27)
--- NOTE | 2019-12-20 13:26 | P.PN ---
Subjective Progress Note Date: 12/20/19 The patient was seen in her room. The chart was reviewed and the case was discussed with the staff on the unit. The patient has been more compliant with the medications. She reports feeling a little tired from invega last night. The patient's speech is more goal directed and logical. She remained withdrawn and isolative and stays in her room most of the time. The patient reports fair sleep and appetite. She denies any auditory or visual hallucinations. She denies any active suicidal or homicidal ideations at this time. Objective - Vital Signs Vital signs: Vital Signs Temp 97.5 F L 12/20/19 06:32 Pulse 59 L 12/20/19 06:32 Resp 12 12/20/19 06:32 BP 118/58 12/20/19 06:32 Pulse Ox 97 12/18/19 06:35 - Exam Mental status exam: General Appearance: Patient appears to be stated age is alert, uncooperative, poor hygiene and grooming. Behavior: No agitated behavior. Patient is calm Speech: Rambling and circumstantial speech. Mood/Affect: Affect is constricted Suicidality/Homicidality: Denies Perceptions: Denies any auditory or visual hallucinations Though content/process: Linear and goal-directed Memory and concentration: Unable to assess. Judgment and insight: Poor - Labs CBC & Chem 7: 12/07/19 09:14 12/07/19 09:14 Assessment and Plan Assessment: Chronic paranoid schizophrenia Plan: Assessment/Plan: Continue with current diagnosis. Patient continues to meet criteria for inpatient psychiatric admission for symptom stabilization and safety.Patient will be maintained on current psychotropic medication regimen. Discontinue Zyprexa. Start Invega 6 mg PO qhs and Zyprexa 5 mg IM if refuses by mouth medications. Planning to start on Invega Sustenna 234 mg IM if she tolerates oral medications. Monitor for medication compliance and for any psychotropic medication side effects. Will continue to monitor ongoing response to treatment.
[2019-12-20] MEDS: PALIPERIDONE 6 MG TAB.ER.24 PO SCH (21:02)
[2019-12-21] MEDS ORDERED: PALIPERIDONE IM 234 MG/1.5 ML SYG IM STA (11:57)
--- NOTE | 2019-12-21 12:52 | P.PN ---
Subjective Progress Note Date: 12/21/19 Principal diagnosis: PRINCIPLE DIAGNOSIS: Schizophrenia, rule out psychotic disorder secondary to underlying medical condition The patient was seen in the chart was reviewed. The patient remained withdrawn and isolative on the unit. The patient remain resistant to treatment but has been compliant with oral medications. The patient reports good sleep and fair appetite. The patient remained guarded and tends to minimize her symptoms. The patient denies any auditory or visual hallucinations although appears to be very preoccupied at times. The patient is superficially pleasant and cooperative. The patient denies any active suicidal or homicidal ideations. She remained focused on getting discharged. Objective - Vital Signs Vital signs: Vital Signs Temp 98.3 F 12/21/19 05:59 Pulse 68 12/21/19 05:59 Resp 14 12/21/19 05:59 BP 99/51 12/21/19 05:59 Pulse Ox 97 12/18/19 06:35 - Exam Mental status exam: General Appearance: Patient appears to be stated age is alert, uncooperative, poor hygiene and grooming. Behavior: No agitated behavior. Patient is calm Speech: Low tone and volume. Mood/Affect: Affect is constricted Suicidality/Homicidality: Denies Perceptions: Denies any auditory or visual hallucinations Though content/process: Linear and goal-directed Memory and concentration: Unable to assess. Judgment and insight: Poor - Labs CBC & Chem 7: 12/07/19 09:14 12/07/19 09:14 Assessment and Plan Assessment: Chronic paranoid schizophrenia Plan: Assessment/Plan: Continue with current diagnosis. Patient continues to meet criteria for inpatient psychiatric admission for symptom stabilization and safety.Patient will be maintained on current psychotropic medication regimen. Continue Invega 6 mg PO qhs and Zyprexa 5 mg IM if refuses by mouth medications. Start on Invega Sustenna 234 mg IM today and plan to give 156 mg IM in 3 days. Recommend family meeting regarding d/c planning with her daughters. Monitor for medication compliance and for any psychotropic medication side effects. Will continue to monitor ongoing response to treatment.
[2019-12-21] MEDS: PALIPERIDONE 6 MG TAB.ER.24 PO SCH (21:59)
--- NOTE | 2019-12-22 10:15 | P.PN ---
Progress Note - Text Interval history: The patient is found in her room she follows me to an interview room. She states her mood is fine although she feels tired. She wonders if she can discontinue the invega pills. It appears that the Invega Sustenna injection was ordered yesterday. We described the process of tapering the oral dose after receiving Invega Sustenna. The patient states she still does not understand why she was put in the hospital. She denies having any symptoms. She did sleep throughout the night she indicates appetite is stable. She is unsure if anyone will visit this evening. Social work notes were reviewed it appears she has been refusing to sign a release of information to involve family. Mental status exam: The patient is a female appearing her stated age. She is pleasant and cooperative. While walking to the interview room she was mumbling quietly to herself. She denies experiencing any auditory or visual hallucinations but it is possible she is experiencing those based on her behavior at times. She reports no paranoid persecutory thoughts. She spends much of the session describing concerns about getting her furnace checked at home. She reports no suicidal or homicidal ideation intent or plan. Speech is fluent spontaneous nonpressured she speaks quietly. She reports no suicidal or homicidal ideation intent or plan. Affect is constricted at first but becomes brighter as a session progresses. She demonstrates no verbal or physical aggressiveness she demonstrates no involuntary repetitive movements. Insight and judgment are impaired. Plan: The patient will continue on her current medications. Over the next several days the oral invega can be tapered to a lower dose. We discussed when the second injection is typically given. We will monitor her for safety and encourage participation in the milieu. Vital signs reviewed. He is ambulating without ataxia.
[2019-12-22] MEDS: PALIPERIDONE 6 MG TAB.ER.24 PO SCH ×2 (22:21→22:33)
--- NOTE | 2019-12-23 14:06 | P.PN ---
Progress Note - Text Interval history: The patient is found in the dining room she follows me to an interview room. She indicates her mood is fine. He states that she is eating and sleeping. Been no reports of any behavioral disturbance. We reviewed her psychotropic medications. She states that she is looking forward to being discharged and feels that she's been in the hospital for too long. Mental status exam: The patient is alert she is pleasant and cooperative. She reports her mood is good she denies having any suicidal or homicidal ideation i ntent or plan. She denies having any auditory or visual hallucinations or any specific delusions although they may still persist. She demonstrates no observe symptoms of psychosis during our brief session. She demonstrates no tangential thinking loose associations or flight of ideas. She demonstrates no verbal or physical aggressiveness. There is no evidence of involuntary repetitive movements. Insight and judgment limited in that she continues to not appreciate reasons for the admission. She appears to be in no acute distress she is ambulating adequately. She may be demonstrating some mild psychomotor slowing. Plan: The patient will continue on her current medications we will reduce the oral invega to 3 mg at bedtime as we will plan to taper her off of the oral dose soon. We will monitor her for safety she is encouraged to continue participating in the milieu. Vital signs reviewed.
[2019-12-23] MEDS: PALIPERIDONE 3 MG TAB.ER.24 PO SCH (21:37)
--- NOTE | 2019-12-24 15:12 | P.PN ---
Subjective Progress Note Date: 12/24/19 Principal diagnosis: Schizophrenia Reviewed the medical record, interviewed the patient and discussed her treatment and treatment plan during team meeting. She was sitting in her room when I approached for the interview. She was quietly talking to herself as though she were holding a conversation with another person. She was keen on discharge and talked about planning to live in [place] with her . She appeared confused when I mentioned that her daughter had told me that her is . She showed no insight or understanding of her mental illness but has been compliant with prescribed psychotropic medications. She reported less sedation from the reduced dose of Invega (from 6 mg to 3 mg daily). Objective - Vital Signs Vital signs: Vital Signs Temp 97.9 F 12/24/19 06:44 Pulse 67 12/24/19 06:44 Resp 18 12/24/19 06:44 BP 96/51 12/24/19 06:44 Pulse Ox 94 L 12/24/19 06:44 Intake & Output 12/23/19 12/24/19 12/24/19 18:59 06:59 18:59 Weight 60.2 kg - Exam She presented as a thin casually groomed elderly woman who was pleasant on approach. She was neatly dressed, made eye contact and attended to interview. She showed psychomotor retardation but no abnormal movements. Her speech was spontaneous with decreased rate, rhythm and volume. Her affect was blunted but stable and appropriate. She denied suicidal ideation or homicidal ideation. She described paranoid ideation and delusional thoughts. Her thinking was concrete and associations were not fully cooperative current or organized. Although she denied experiencing auditory hallucinations she appeared to be responding to internal stimuli. - Labs CBC & Chem 7: 12/07/19 09:14 12/07/19 09:14 Assessment and Plan Assessment: She is moderately mentally ill and minimally improve from admission. She was compliant with prescribed psychotropic medication but continues to expressed delusional beliefs and experience auditory hallucinations. Plan: Continue inpatient hospitalization. Safety precautions. Continue Invega 3 mg at bedtime and Zyprexa 5 mg IM 3 times a day when necessary for agitation or aggression. Continue Ativan 1 mg by mouth 3 times a day for anxiety. Evaluate clinical status response to treatment daily basis. Encourage participation in therapeutic groups and activities.
[2019-12-24] MEDS: PALIPERIDONE 3 MG TAB.ER.24 PO SCH (21:16)
--- NOTE | 2019-12-25 16:32 | P.PN ---
Subjective Progress Note Date: 12/25/19 Principal diagnosis: Schizophrenia I reviewed the medical record, interviewed the patient and discussed her treatment and treatment plan during team meeting. This was a tedious and circular interview. She repeatedly requested to be discharged. She denied that she has a mental illness or needs mental health treatment. She alleged that she came here voluntarily. She denied that she came under a petition for hospitalization, denied that she had met with a court appointed internal medicine physician assistant and denied that she had a probate hearing. She insists that her has is alive but told me that he is "too busy" to call me or meet with the treatment team. Objective - Vital Signs Vital signs: Vital Signs Temp 98.7 F 12/25/19 06:04 Pulse 74 12/25/19 06:04 Resp 14 12/25/19 06:04 BP 121/60 12/25/19 06:04 Pulse Ox 94 L 12/24/19 06:44 - Exam She presented as a thin casually groomed elderly woman who was pleasant on approach. She was neatly dressed, made eye contact and attended to interview. She showed psychomotor retardation but no abnormal movements. Her speech was spontaneous with decreased rate, rhythm and volume. Her affect was blunted but stable and appropriate. She denied suicidal ideation or homicidal ideation. She described paranoid ideation and delusional thoughts. Her thinking was concrete and associations were not fully cooperative current or organized. Although she denied experiencing auditory hallucinations I deserve her sending her bed with her back to the door talking as though she were speaking to another person. - Labs CBC & Chem 7: 12/07/19 09:14 12/07/19 09:14 Assessment and Plan Assessment: She is moderately mentally ill and minimally improve from admission. She was compliant with prescribed psychotropic medication but continues to expressed delusional beliefs and experience auditory hallucinations. Plan: Continue inpatient hospitalization. Safety precautions. Continue Invega 3 mg at bedtime and Zyprexa 5 mg IM 3 times a day when necessary for agitation or aggression. Administer 150 mg of Invega on 12/28/2019. Continue Ativan 1 mg by mouth 3 times a day for anxiety. Evaluate clinical status response to treatment daily basis. Encourage participation in therapeutic groups and activities.
[2019-12-25] MEDS: PALIPERIDONE 3 MG TAB.ER.24 PO SCH (21:13)
--- NOTE | 2019-12-26 16:28 | P.PN ---
Subjective Progress Note Date: 12/26/19 Principal diagnosis: Schizophrenia I reviewed the medical record, interviewed the patient and discussed her treatment and treatment plan during team meeting. She is pleasant and s uperficial.. She denied problems or concerns and did not request to be discharged. She declined my recommendation to transition from oral to long- acting Invega. She alleged that she would prefer to take the 3 mg dose every day rather than receiving monthly injection. She was kept off my position that she is unlikely to continue taking oral medications. Objective - Vital Signs Vital signs: Vital Signs Temp 98.0 F 12/26/19 00:25 Pulse 85 12/26/19 00:25 Resp 16 12/26/19 00:25 BP 135/77 12/26/19 00:25 Pulse Ox 96 12/26/19 00:25 - Exam She presented as a thin elderly woman who was pleasant on approach. She was neatly dressed, made eye contact and attended to interview. She showed psychomotor retardation but no abnormal movements. Her speech was spontaneous with decreased rate, rhythm and volume. Her affect was blunted but stable and appropriate. She denied suicidal ideation or homicidal ideation. She would not talk about her . Her thinking was concrete and associations appeared organized today. I did not observe her responding to internal stimuli today. - Labs CBC & Chem 7: 12/07/19 09:14 12/07/19 09:14 Assessment and Plan Assessment: She is moderately mentally ill and minimally improve from admission. She was compliant with prescribed psychotropic medication but continues to expressed delusional beliefs and experience auditory hallucinations. Plan: Continue inpatient hospitalization. Safety precautions. Continue Invega 3 mg at bedtime and Zyprexa 5 mg IM 3 times a day when necessary for agitation or aggression. Administer 150 mg of Invega on 12/28/2019. Continue Ativan 1 mg by mouth 3 times a day for anxiety. Evaluate clinical status response to treatment daily basis. Encourage participation in therapeutic groups and activities.
[2019-12-26] MEDS: PALIPERIDONE 3 MG TAB.ER.24 PO SCH (21:41)
--- NOTE | 2019-12-27 14:10 | P.PN ---
Subjective Progress Note Date: 12/27/19 Principal diagnosis: Schizophrenia I reviewed the medical record, interviewed the patient and discussed her treatment and treatment plan during team meeting. She was again pleasant but superficial. She talked about such unrelated topics as redoing her kitchen and her wallpaper. She denies that she has mental illness or needs to be in the hospital. She denied that she had not followed through with outpatient treatment and denied that she came to the hospital involuntarily. She denied side effects to current dose of Invega. She again declined our recommendation to transition from oral to long-acting Invega. She would not listen to my explanation that her involuntary status would allow us to administer the long- acting injection. I spoke with her daughter about our recommendation for a guardian. Objective - Vital Signs Vital signs: Vital Signs Temp 97.9 F 12/27/19 06:57 Pulse 64 12/27/19 06:57 Resp 18 12/27/19 06:57 BP 109/64 12/27/19 06:57 Pulse Ox 95 12/27/19 06:57 - Exam She presented as a thin elderly woman who was pleasant on approach. She was neatly dressed, made eye contact and attended to interview. She showed no abnormality of psychomotor activity and no abnormal movements. Her speech was spontaneous with normal rate, rhythm and volume. Her affect was blunted but stable and appropriate. She denied suicidal ideation or homicidal ideation. She would not talk about her . Her thinking was concrete and associations appeared organized today. She denied experiencing auditory hallucinations and did not appear to responding to internal stimuli. She has no insight or understanding of her mental illness or need for treatment. - Labs CBC & Chem 7: 12/07/19 09:14 12/07/19 09:14 Assessment and Plan Assessment: She is moderately mentally ill and minimally improve from admission. She was compliant with prescribed psychotropic medication but continues to expressed delusional beliefs and experience auditory hallucinations. Plan: Continue inpatient hospitalization. Safety precautions. Continue Invega 3 mg at bedtime and Zyprexa 5 mg IM 3 times a day when necessary for agitation or aggression. Administer 150 mg of Invega on 12/28/2019. Continue Ativan 1 mg by mouth 3 times a day for anxiety. Evaluate clinical status response to treatment daily basis. Encourage participation in therapeutic groups and activities.
[2019-12-27] MEDS: PALIPERIDONE 3 MG TAB.ER.24 PO SCH (21:28)
[2019-12-28] MEDS ORDERED: PALIPERIDONE IM 156 MG/ML SYG IM ONE (09:00)
--- NOTE | 2019-12-28 12:24 | P.PN ---
Subjective Progress Note Date: 12/28/19 Principal diagnosis: Schizophrenia I reviewed the medical record, interviewed the patient and discussed her treatment and treatment plan during team meeting. She would not get me here speak with me. When I asked if she was angry with me she replied that she has not. She received the injection of Invega 156 mg this morning. During team meeting we discuss discharge and aftercare plans. The general consensus was that she is unable to take care of herself. The long term care social worker spoke with her daughter about guardianship. The impression is that the daughter is unwilling to assume guardianship. Objective - Vital Signs Vital signs: Vital Signs Temp 97.9 F 12/27/19 06:57 Pulse 99 12/28/19 01:40 Resp 14 12/28/19 01:40 BP 123/72 12/28/19 01:40 Pulse Ox 95 12/27/19 06:57 - Exam She presented as a thin elderly woman who was aloof. She would not make eye contact or engage in conversation. She appeared angry. - Labs CBC & Chem 7: 12/07/19 09:14 12/07/19 09:14 Assessment and Plan Assessment: She is moderately mentally ill and minimally improve from admission. She was compliant with prescribed psychotropic medication but continues to expressed delusional beliefs and experience auditory hallucinations. Plan: Continue inpatient hospitalization. sewage disposal worker to arrange a telephone conference with her daughter to continue discussion of guardianship otherwise we'll begin the process of applying for a public guardian. We may also have to consider placement if the family is unwilling to phlebotomy supervisor her. Safety precautions. Continue Invega 3 mg at bedtime for another week then d/c. Zyprexa 5 mg IM 3 times a day when necessary for agitation or aggression. Continue Invega sustenna 156 mg IM monthly. Continue Ativan 1 mg by mouth 3 times a day for anxiety. Evaluate clinical status response to treatment daily basis. Encourage participation in therapeutic groups and activities.
[2019-12-28 15:23] VITALS: RESP 16
[2019-12-28 15:49] VITALS: BMI 21.4
[2019-12-28] MEDS: PALIPERIDONE 3 MG TAB.ER.24 PO SCH (21:59)
[2019-12-29 07:14] VITALS: TEMP 98
--- NOTE | 2019-12-29 17:26 | P.PN ---
Progress Note - Text Progress Note Date: 12/29/19 Subjective: Patient was seen today as a cross coverage for . The patient was evaluated, chart reviewed, case discussed with the treatment team. Patient reported better sleep last night. Appetite was reported as "better". Patient has been going to some groups and other unit activities. The patient is compliant with her medications and denies any adverse reactions. Patient reports Invega helps her mood symptoms that she has been feeling stable emotionally and he denies any mood swings. She denies depression, anxiety symptoms and denies any suicidal or homicidal ideation. She denies any psychotic symptoms including hallucinations, paranoid ideation, and no delusions could be elicited. The patient presented to some degree talkative with pressured speech and flight of ideas and she was fixated on being discharged today even she was explained that the discharge plan has to be discussed with her ongoing psychiatrist. Objective: Vitals has been reviewed. Mental status examination; Appearance: The patient appears stated age, adequately groomed and dressed, no specific features. Gait/posture: Normal gait, Normal arm swinging: No abnormal movements. Attitude and behavior: engaged, cooperative, eye contact. Motor activity: Normal psychomotor activity Speech: Hyper verbal, pressured Mood: Anxious Affect: Restricted Thought form: goal-directed, linear, coherent, but to some degree increased rate and flight of ideas. Thought content: Non-delusional, denies suicidal thoughts, denies homicidal thoughts, denies intentions or plans. Perception: Denies any auditory or visual hallucinations Attention: No impairment. Orientation: Patient patient was fully oriented to time place person and situation. Insight: Patient has limited insight about her psychiatric disorder. Judgment: Patient has limited judgment about her psychiatric treatment. Assessment: Schizophrenia. Rule out psychotic disorder secondary to underlying medical condition Rule out schizoaffective disorder, bipolar type. Plan: Continue inpatient level of care due to need for further stabilization on medications Precautions: Continue 15 minutes check for safety. Consider medical consultation if any acute medical issues arise. Provide the patient individual, group therapy, substance use disorder counseling to give better insight and learn coping skills. Medications: Continue Invega 3 mg at bedtime, patient received Invega long-acting injectable 156 mg. Continue when necessary medications Discharge patient to OUTPATIENT services upon a stabilization
[2019-12-29] MEDS: PALIPERIDONE 3 MG TAB.ER.24 PO SCH (20:18)
--- NOTE | 2019-12-30 13:51 | P.PN ---
Progress Note - Text Progress Note Date: 12/30/19 Subjective: Patient was seen today as a cross coverage for Dr. Townsend. The patient was evaluated, chart reviewed, case discussed with the treatment team. Patient presents today with non-pressured speech and less flight of ideas. She reports her mood is "okay" and he denies depression, anxiety, or severe mood swings. She denies suicidal or homicidal ideation, and denies any hallucinations, paranoid ideation. She reports her sleep is better last night and denies any appetite problems. Patient has been going to some groups and other unit activities. The patient is compliant with her medications and denies any adverse reactions. Objective: Vitals has been reviewed. Mental status examination; Appearance: The patient appears stated age, adequately groomed and dressed, no specific features. Gait/posture: Normal gait, Normal arm swinging: No abnormal movements. Attitude and behavior: engaged, cooperative, eye contact. Motor activity: Normal psychomotor activity Speech: normal rate, not-pressured Mood: Anxious Affect: Restricted Thought form: goal-directed, linear, coherent. Thought content: Non-delusional, denies suicidal thoughts, denies homicidal thoughts, denies intentions or plans. Perception: Denies any auditory or visual hallucinations Attention: No impairment. Orientation: Patient patient was fully oriented to time place person and situation. Insight: Patient has limited insight about her psychiatric disorder. Judgment: Patient has limited judgment about her psychiatric treatment. Assessment: Schizophrenia. Rule out psychotic disorder secondary to underlying medical condition Rule out schizo-affective disorder, bipolar type. Plan: Continue inpatient level of care due to need for further stabilization on medications Precautions: Continue 15 minutes check for safety. Consider medical consultation if any acute medical issues arise. Provide the patient individual, group therapy, substance use disorder counseling to give better insight and learn coping skills. Medications: Continue Invega 3 mg at bedtime, patient received Invega long-acting injectable 156 mg as per previous psychiatric notes. Continue when necessary medications Discharge patient to OUTPATIENT services upon a stabilization
[2019-12-30] MEDS: PALIPERIDONE 3 MG TAB.ER.24 PO SCH (21:41)
[2019-12-31 06:51] VITALS: BP 125/72; PULSE 99
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
== END 2019-12-31 15:26 | disposition home or self-care (01) | DRG 885 ==
LOC: EC 18:29 → 3MHU 22:33
PROVIDERS: ADMIT Psychiatry & Neurology Psychiatry; ATTEND Psychiatry & Neurology Psychiatry
DX: F20.0 Paranoid schizophrenia (principal); E07.9 Disorder of thyroid, unspecified; F17.200 Nicotine dependence, unspecified, uncomplicated; R73.9 Hyperglycemia, unspecified; F32.9 Major depressive disorder, single episode, unspecified; F41.9 Anxiety disorder, unspecified; R82.71 Bacteriuria; Z79.899 Other long term (current) drug therapy; Z91.19 Patient's noncompliance with other medical treatment and regimen; Z85.41 Personal history of malignant neoplasm of cervix uteri; Z90.710 Acquired absence of both cervix and uterus; Z90.49 Acquired absence of other specified parts of digestive tract; Z87.09 Personal history of other diseases of the respiratory system; Z88.5 Allergy status to narcotic agent; Z80.0 Family history of malignant neoplasm of digestive organs; Z80.1 Family history of malignant neoplasm of trachea, bronchus and lung
CPT/HCPCS: 80053; 80061; 80306; 81001; 82075; 83036; 84443; 85025; 99285

== ENCOUNTER → 2020-03-04 | Outpatient (CLI) | payer MEDICARE ==
--- NOTE | 2020-03-04 12:17 | P.GSHP ---
History of Present Illness H&P Date: 03/04/20 Chief Complaint: Abnormal right breast mammogram and ultrasound Secondary to the concerns regarding the coronavirus the patient has opted to have a towel roll conference visit rather than coming to the hospital at this time. She understands that her insurance company will be detailed and she wishes to proceed. There is a 74-year-old white female status post bilateral mammogram performed on . On that evaluation she was noted to have a 10 x 5 mm lesion in the right breast approximately 5 cm from the nipple. The patient did not have any lesions of concern noted in the left breast. She [place] [address] which revealed a 22 x 20 mm lesion which was considered of concern in the right breast and an ultrasound- guided core biopsy was recommended. Her last mammogram prior to this one was about ten years ago. Patient has recently lost approximately 30 pounds and after that she feels some nodularity in her breast. Additionally she has some stabbing pains in the right breast in the upper-outer quadrant region. For this reason she sought radiographic evaluation. She has not had any trauma, infection, prior surgery and either breast. Family History: 1. mother: colon Hormonal History: menarche: 14 , breast fed: no, age at : 27 menopause: hysterectomy at 40, left ovaries for cervical cancer BCP; none hormones: patch for about 1 year Past Surgical History: 1. hysterectomy 2. appendectomy Medical History: Invega to help sleep urinary urgency Social History: smoke: none/ stopped several years ago alcohol: none drugs: none - Constitutional Constitutional: Denies chills, Denies fever - EENT Eyes: denies blurred vision, denies pain Ears: deny: decreased hearing, tinnitus Ears, nose, mouth and throat: Denies headache, Denies sore throat - Breasts Breasts: bilateral: as per HPI - Cardiovascular Cardiovascular: Denies chest pain, Denies shortness of breath - Respiratory Respiratory: Denies cough, Denies 7 - Gastrointestinal Gastrointestinal: Denies abdominal pain, Denies diarrhea, Denies nausea, Denies vomiting - Genitourinary (Female) Genitourinary: Reports urgency, Denies dysuria, Denies hematuria - Menstruation Menstruation: Reports post hysterectomy - Musculoskeletal Musculoskeletal: Denies myalgias - Integumentary Comment: rash on back resolving Integumentary: Reports rash, Denies pruritus - Neurological Neurological: Denies numbness, Denies weakness - Psychiatric Comment: difficulty sleeping treated with a medication used for schizophrenia - Endocrine Endocrine: Reports weight change - Hematologic/Lymphatic Comment: none - Allergic/Immunologic Comment: codeine Past Medical History Past Medical History: Thyroid Disorder Additional Past Medical History / Comment(s): bronchitis, vit b deficiency, stage 3 cervical cancer-sx only, in past took meds for thyroid but was taken off it 15 years ago, upper/lower dental bridges History of Any Multi-Drug Resistant Organisms: None Reported Past Surgical History: Appendectomy, Hysterectomy Past Anesthesia/Blood Transfusion Reactions: No Reported Reaction Past Psychological History: No Psychological Hx Reported Smoking Status: Current some day smoker Past Alcohol Use History: Rare Past Drug Use History: None Reported - Past Family History Mother Family Medical History: Cancer Additional Family Medical History / Comment(s): colon cancer Father Family Medical History: Cancer Additional Family Medical History / Comment(s): lung cancer Medications and Allergies Home Medications Medication Instructions Recorded Confirmed Type Paliperidone IM [Invega Sustenna] 156 mg IM QMONTH #1 syr 12/31/19 Rx Allergies Allergy/AdvReac Type Severity Reaction Status Date / Time codeine Allergy Unknown Verified 03/04/20 11:52 Results mammogram and ultrasound reports reviewed Assessment and Plan Assessment: Impression: 1. Mammogram and ultrasound abnormality right breast 2. Patient does not take any blood thinners 3. Questionable palpable change right breast physician exam could not be performed secondary to this being a telephone encounter 4. Recent weight change of 30 pounds 5. Difficulty sleeping Plan: 1. Ultrasound-guided core biopsy right breast 2. Follow-up after ultrasound-guided core biopsy right breast CC: Dr. Sky Be encounter: 35 minutes, > 50% of time in planning and counselling Time with Patient: Greater than 30
== END | disposition home or self-care (01) ==
LOC: WWCWWP 11:49
PROVIDERS: ATTEND Surgery
DX: Z53.9 Procedure and treatment not carried out, unspecified reason (principal)

== ENCOUNTER → 2020-04-15 | Outpatient (CLI) | payer MEDICARE | END | disposition home or self-care (01) | LOC: LABPAT 10:39 | PROVIDERS: ATTEND Family Medicine | DX: Z11.59 Encounter for screening for other viral diseases (principal) | CPT/HCPCS: 87635 ==

== ENCOUNTER → 2020-04-17 | Day surgery (SDC) | payer MEDICARE ==
[2020-04-17 12:22] VITALS: BP 141/94; PULSE 119; RESP 18; TEMP 98
--- NOTE | 2020-04-17 12:24 | USB ---
EXAMINATION TYPE: US biopsy breast VAD RT DATE OF EXAM: 04/17/2020 CLINICAL HISTORY: R92.8 abnormal mammogram. TECHNIQUE: Ultrasound guided vaccuum assisted core biopsy of right breast. COMPARISON: NONE FINDINGS: The ultrasound guided core biopsy procedure was explained to the patient. The risks, benefits, alternatives were discussed. An informed consent was then obtained. Timeout was performed. The patient was placed in left posterior oblique positioning for imaging and for the procedure. The overlying skin was prepped with betadine and sterilely draped in usual sterile fashion. Lidocaine 1% was used as anesthetic into the skin and deeper breast tissue up to area of concern in the breast. A small skin randolph was made with surgical scalpel. Under ultrasound guidance, a 12-gauge vacuum assisted biopsy device was used to obtain 4 core samples. A wing biopsy clip was left in lesion. Good hemostasis was obtained with direct pressure. Discharge instructions were discussed with the patient. The patient will follow up with the referring physician for results. Postprocedure mammogram: Post procedure mammogram was deferred at this time for infection control. A large portion of the lesion remains present. The patient tolerated the procedure well without any immediate complication. The patient was discharged to home in stable condition. IMPRESSION: 1. Successful ultrasound guided biopsy right breast. Pathology Results: Malignant RIGHT BREAST, ULTRASOUND GUIDED CORE BIOPSY: Invasive moderately differentiated ductal carcinoma (Grade 2). See Surgical Pathology Cancer Case Summary and Comment. Recommendation Surgical consult of the right breast. HARPREETD
== END ==
LOC: RADUSWWP 09:52
PROVIDERS: ATTEND Surgery
DX: C50.911 Malignant neoplasm of unspecified site of right female breast (principal); Z88.5 Allergy status to narcotic agent; Z17.0 Estrogen receptor positive status [ER+]; R92.8 Other abnormal and inconclusive findings on diagnostic imaging of breast
CPT/HCPCS: 88305; 88342; 88341; 19083; A4648; J2001

== ENCOUNTER 2020-04-25 10:55 | Emergency (ER) | payer MEDICARE ==
[2020-04-25 11:01] VITALS: TEMP 98.1
--- NOTE | 2020-04-25 11:24 | ED ---
Arrhythmia/Palpitations HPI - General Chief Complaint: Arrhythmia/Palpitations Stated Complaint: sent by Time Seen by Provider: 04/25/20 11:01 Source: patient, RN notes reviewed Mode of arrival: ambulatory Limitations: no limitations - History of Present Illness Initial Comments: This is a 75-year-old female with no prior history of heart disease she is aware of a former smoker who was just diagnosed with invasive ductal carcinoma stage IB on the right side who was sent here from the outpatient clinic for evaluation palpitations. She was noted have a heart rate was as high as the 140s and as low as 85 he did seem to be irregular. Patient denies any chest pain a palpitations fevers chills nausea vomiting sweats she does state that she was on thyroid medication but has not had any for 10 years because she did not need it. No shortness of breath or exertional dyspnea reported no other modifying factors at this time MD Complaint: irregular heart beat - Related Data Home Medications Medication Instructions Recorded Confirmed Multivitamin [Multivitamins Adult 1 each PO DAILY 03/04/20 04/25/20 Gummies] Paliperidone IM [Invega Sustenna] 117 mg IM QMONTH 04/17/20 04/25/20 Allergies Allergy/AdvReac Type Severity Reaction Status Date / Time codeine Allergy Unknown Verified 04/25/20 11:48 Review of Systems ROS Statement: Those systems with pertinent positive or pertinent negative responses have been documented in the HPI. ROS Other: All systems not noted in ROS Statement are negative. Past Medical History Past Medical History: Cancer, Thyroid Disorder Additional Past Medical History / Comment(s): vit b deficiency, stage 3 cervical cancer-sx only, in past took meds for thyroid but was taken off it 15 years ago, upper/lower dental bridges, breast cancer dx 04/16 History of Any Multi-Drug Resistant Organisms: None Reported Past Surgical History: Appendectomy, Hysterectomy Past Anesthesia/Blood Transfusion Reactions: No Reported Reaction Past Psychological History: No Psychological Hx Reported Smoking Status: Former smoker Past Alcohol Use History: None Reported Past Drug Use History: None Reported - Past Family History Mother Family Medical History: Cancer Additional Family Medical History / Comment(s): colon cancer Father Family Medical History: Cancer Additional Family Medical History / Comment(s): lung cancer General Exam - General Exam Comments Initial Comments: This is a well-developed asthenic appearing female who is awake alert oriented 3 Limitations: no limitations General appearance: alert, in no apparent distress Head exam: Present: atraumatic, normocephalic, normal inspection Eye exam: Present: normal appearance, PERRL, EOMI. Absent: scleral icterus, conjunctival injection, periorbital swelling ENT exam: Present: normal exam, mucous membranes moist Neck exam: Present: normal inspection, full ROM, other (Stridor JVD or bruits). Absent: tenderness, meningismus, lymphadenopathy Respiratory exam: Present: normal lung sounds bilaterally. Absent: respiratory distress, wheezes, rales, rhonchi, stridor Cardiovascular Exam: Present: normal rhythm, irregular rhythm. Absent: systolic murmur, diastolic murmur, rubs, gallop, clicks GI/Abdominal exam: Present: soft, normal bowel sounds. Absent: distended, tenderness, guarding, rebound, rigid Extremities exam: Present: normal inspection, full ROM, normal capillary refill. Absent: tenderness, pedal edema, joint swelling, calf tenderness Back exam: Present: normal inspection Neurological exam: Present: alert, oriented X3, CN II-XII intact Psychiatric exam: Present: normal affect, normal mood Skin exam: Present: warm, dry, intact, normal color. Absent: rash Course Vital Signs 04/25/20 04/25/20 04/25/20 10:58 11:22 11:30 Temperature 98.1 F Pulse Rate 131 H 80 Pulse Rate [ [address] [employer] [employer] [address] ] Respiratory 18 17 Rate Blood Pressure 123/93 133/78 O2 Sat by Pulse 96 94 L Oximetry 04/25/20 04/25/20 04/25/20 12:00 12:30 13:00 Temperature Pulse Rate 75 76 78 Pulse Rate [ [employer] ] Respiratory 18 17 17 Rate Blood Pressure 128/78 O2 Sat by Pulse 92 L 94 L 92 L Oximetry 04/25/20 04/25/20 13:17 13:30 Temperature Pulse Rate 76 84 Pulse Rate [ [employer] ] Respiratory 18 19 Rate Blood Pressure 126/69 126/69 O2 Sat by Pulse 95 93 L Oximetry - Reevaluation(s) Reevaluation #1: 04/25/20 15:00 Reevaluation patient reveals she was having PACs and PVCs. Reevaluation #2: 04/25/20 15:01 Repeat EKG after medication normal sinus rhythm a 73. DC 152 to QRS 80 QT since QTC 32/[address]-T wave changes Medical Decision Making - Medical Decision Making Patient is rhythm seems to resolve after IV magnesium. She will be discharged at this time she is encouraged if continue drinking increased fluids take supplemental magnesium she will be referred to cardiology. - Lab Data Result diagrams: 04/25/20 11:13 04/25/20 11:13 Lab Results 04/25/20 04/25/20 04/25/20 Range/Units 11:13 11:13 11:13 WBC 7.5 (3.8-10.6) k/uL RBC 4.94 (3.80-5.40) m/uL Hgb 15.4 (11.4-16.0) gm/dL Hct 46.0 (34.0-46.0) % MCV 93.2 (80.0-100.0) fL MCH 31.3 (25.0-35.0) pg MCHC 33.5 (31.0-37.0) g/dL RDW 12.8 (11.5-15.5) % Plt Count 275 (150-450) k/uL Neutrophils % 60 % Lymphocytes % 30 % Monocytes % 7 % Eosinophils % 1 % Basophils % 0 % Neutrophils # 4.5 (1.3-7.7) k/uL Lymphocytes # 2.3 (1.0-4.8) k/uL Monocytes # 0.5 (0-1.0) k/uL Eosinophils # 0.1 (0-0.7) k/uL Basophils # 0.0 (0-0.2) k/uL PT 9.6 (9.0-12.0) sec INR 0.9 (<1.2) APTT 23.8 (22.0-30.0) sec D-Dimer 0.90 H (<0.60) mg/L FEU Sodium 137 (137-145) mmol/L Potassium 4.1 (3.5-5.1) mmol/L Chloride 106 (98-107) mmol/L Carbon Dioxide 22 (22-30) mmol/L Anion Gap 9 mmol/L BUN 9 (7-17) mg/dL Creatinine 0.51 L (0.52-1.04) mg/dL Est GFR (CKD-EPI)AfAm >90 (>60 ml/min/1.73 sqM) Est GFR (CKD-EPI)NonAf >90 (>60 ml/min/1.73 sqM) Glucose 125 H (74-99) mg/dL Calcium 9.4 (8.4-10.2) mg/dL Magnesium 1.8 (1.6-2.3) mg/dL Total Bilirubin 0.5 (0.2-1.3) mg/dL AST 27 (14-36) U/L ALT 13 (4-34) U/L Alkaline Phosphatase 77 (38-126) U/L Troponin I (0.000-0.034) ng/mL Total Protein 7.3 (6.3-8.2) g/dL Albumin 4.2 (3.5-5.0) g/dL TSH 2.970 (0.465-4.680) mIU/L 04/25/20 Range/Units 11:13 WBC (3.8-10.6) k/uL RBC (3.80-5.40) m/uL Hgb (11.4-16.0) gm/dL Hct (34.0-46.0) % MCV (80.0-100.0) fL MCH (25.0-35.0) pg MCHC (31.0-37.0) g/dL RDW (11.5-15.5) % Plt Count (150-450) k/uL Neutrophils % % Lymphocytes % % Monocytes % % Eosinophils % % Basophils % % Neutrophils # (1.3-7.7) k/uL Lymphocytes # (1.0-4.8) k/uL Monocytes # (0-1.0) k/uL Eosinophils # (0-0.7) k/uL Basophils # (0-0.2) k/uL PT (9.0-12.0) sec INR (<1.2) APTT (22.0-30.0) sec D-Dimer (<0.60) mg/L FEU Sodium (137-145) mmol/L Potassium (3.5-5.1) mmol/L Chloride (98-107) mmol/L Carbon Dioxide (22-30) mmol/L Anion Gap mmol/L BUN (7-17) mg/dL Creatinine (0.52-1.04) mg/dL Est GFR (CKD-EPI)AfAm (>60 ml/min/1.73 sqM) Est GFR (CKD-EPI)NonAf (>60 ml/min/1.73 sqM) Glucose (74-99) mg/dL Calcium (8.4-10.2) mg/dL Magnesium (1.6-2.3) mg/dL Total Bilirubin (0.2-1.3) mg/dL AST (14-36) U/L ALT (4-34) U/L Alkaline Phosphatase (38-126) U/L Troponin I <0.012 (0.000-0.034) ng/mL Total Protein (6.3-8.2) g/dL Albumin (3.5-5.0) g/dL TSH (0.465-4.680) mIU/L - EKG Data -: EKG Interpreted by Me (EKG shows sinus rhythm with occasional PVCs and PACs. Rate was 99. Interv) - Radiology Data Radiology results: report reviewed (I did review the imaging and report no acute findings.), image reviewed Disposition Clinical Impression: Premature ventricular contractions, Premature atrial contractions Disposition: HOME SELF-CARE Condition: Good Instructions (If sedation given, give patient instructions): Heart Palpitations (ED), Premature Ventricular Contractions (ED), Premature Atrial Contractions (ED) Additional Instructions: Heto-eav-fosxpmd supplemental magnesium was daily, increase oral fluids, follow- up with cardiology as discussed Is patient prescribed a controlled substance at d/c from ED?: No Referrals: Sky Be DO [Primary Care Provider] - 1-2 days Maco Krishna MD [STAFF PHYSICIAN] - 1-2 days
[2020-04-25 11:27] LABS: Basophils % (A) 0 %; Eosinophils # (A) 0.1 k/uL (0-0.7); Eosinophils % (A) 1 %; HGB 15.4 gm/dL (11.4-16.0); Lymphocytes # (A) 2.3 k/uL (1.0-4.8); Lymphocytes % (A) 30 %; MCH 31.3 pg (25.0-35.0); MCHC 33.5 g/dL (31.0-37.0); MCV 93.2 fL (80.0-100.0); Mean Platelet Volume 7.1; Monocytes # (A) 0.5 k/uL (0-1.0); Monocytes % (A) 7 %; Neutrophils # (A) 4.5 k/uL (1.3-7.7); Neutrophils % (A) 60 %; Platelet Count 275 k/uL (150-450); RBC 4.94 m/uL (3.80-5.40); RDW 12.8 % (11.5-15.5); WBC 7.5 k/uL (3.8-10.6)
[2020-04-25 11:40] LABS: ALT 13 U/L (4-34); AST 27 U/L (14-36); African American GFR (CKD) >90 (>60 ml/min/1.73 sqM); Albumin 4.2 g/dL (3.5-5.0); Alkaline Phosphatase 77 U/L (38-126); Anion Gap 9 mmol/L; Blood Urea Nitrogen 9 mg/dL (7-17); Calcium 9.4 mg/dL (8.4-10.2); Carbon Dioxide 22 mmol/L (22-30); Chloride 106 mmol/L (98-107); Glucose 125 mg/dL (74-99); Magnesium 1.8 mg/dL (1.6-2.3); Non-African American GFR(CKD) >90 (>60 ml/min/1.73 sqM); Potassium 4.1 mmol/L (3.5-5.1); Sodium 137 mmol/L (137-145); Total Bilirubin 0.5 mg/dL (0.2-1.3); Total Protein 7.3 g/dL (6.3-8.2)
[2020-04-25 11:41] LABS: INR 0.9 (<1.2); Partial Thromboplastin Time 23.8 sec (22.0-30.0); Prothrombin Time 9.6 sec (9.0-12.0)
--- NOTE | 2020-04-25 11:41 | XR ---
EXAMINATION TYPE: XR chest 2V DATE OF EXAM: 04/25/2020 COMPARISON: Prior chest x-ray 02/15/2019 HISTORY: Dysrhythmia TECHNIQUE: Frontal and lateral views of the chest are obtained. FINDINGS: There is no focal air space opacity, pleural effusion, or pneumothorax seen. The cardiac silhouette size is within normal limits. The osseous structures are intact. There are overlying car diac leads. Aorta is dense. IMPRESSION: No acute cardiopulmonary process.
[2020-04-25 11:47] LABS: D-Dimer 0.9 mg/L FEU (<0.60)
[2020-04-25] MEDS ORDERED: MAGNESIUM SULFATE-D5W PMX 1 GM in DEXTROSE/WATER 1 100ML.BAG IVPB ONE (12:07)
--- NOTE | 2020-04-25 13:01 | CT ---
EXAMINATION TYPE: CT angio chest DATE OF EXAM: 04/25/2020 12:40 PM COMPARISON: None HISTORY: PE suspected CT DLP: 278.5 mGycm Automated exposure control for dose reduction was used. CONTRAST: CTA scan of the thorax is performed with IV Contrast, patient injected with 84 mL of Isovue 370, pulm onary embolism protocol. . FINDINGS: LUNGS: There is interlobular septal thickening and areas of subsegmental consolidation most likely in the basis of atelectasis. Mild basilar bronchiectasis noted. No pleural effusion or pneumothorax. MEDIASTINUM: There is satisfactory enhancement of the pulmonary artery and its branches, there is no CT evidence for pulmonary embolism. There are no greater than 1 cm hilar or mediastinal lymph nodes aorta of normal caliber. Artifact limits assessment of portions of the aorta. OTHER: There is a 2.5 cm mass in the left kidney measuring 5 Hounsfield units compatible simple cyst . Numerous hepatic lesions are seen. The largest measures 3.4 cm and 12 Hounsfield units compatible w ith a simple cyst. Smaller lesions are indeterminate but statistically most likely related to cysts. Duodenal diverticulum suspected. Hypertrophic and degenerative change of the spine. There is a asymme tric nodular area of density in the right breast suggestive of a mass which is apparently been biopsi ed recently. IMPRESSION: 1. No diagnostic evidence of pulmonary embolism. 2. Right breast mass compatible with the patient's history of recently biopsied mass 3. Basilar atelectasis or scar with changes suggestive of mild chronic interstitial lung disease.
[2020-04-25 15:32] VITALS: BP 127/81; PULSE 80; RESP 18
== END 2020-04-25 15:27 | disposition home or self-care (01) ==
LOC: EC 10:55
DX: I49.1 Atrial premature depolarization (principal); I49.3 Ventricular premature depolarization; R53.1 Weakness; E53.9 Vitamin B deficiency, unspecified; C50.911 Malignant neoplasm of unspecified site of right female breast; Z79.899 Other long term (current) drug therapy; Z85.41 Personal history of malignant neoplasm of cervix uteri; Z87.891 Personal history of nicotine dependence; Z88.5 Allergy status to narcotic agent
CPT/HCPCS: 96365; 99285; 36415; 93005; 85379; 80053; 83735; 84443; 84484; 85025; 85610; 85730; 71046; 71275; J3475; Q9967

== ENCOUNTER → 2020-04-25 | Outpatient (CLI) | payer MEDICARE ==
--- NOTE | 2020-04-25 10:49 | P.PN ---
Subjective Progress Note Date: 04/25/20 Principal diagnosis: Stage IB right breast cancer Stephanie is a 75-year-old white female status post right breast ultrasound-guided core biopsy on 520 120. Pathology revealed a grade 2 invasive ductal carcinoma. The lesion is between 2-2.5 cm in , it is believed to be noted n egative with no metastatic disease. She is ER/IA positive HER-2/kapil negative. The patient has no complaints related to the biopsy. She would like to have a lumpectomy, her bra size is 34B. If possible she would like to have the tumor shrunk prior to operative intervention. Objective - Constitutional General appearance: Present: average body habitus - EENT Eyes: Present: EOMI ENT: Present: hearing grossly normal - Neck Neck: Present: normal ROM - Respiratory Respiratory: bilateral: CTA - Cardiovascular Details: Heart rate is between 75-140, it is irregular - Integumentary Integumentary Comment(s): Right breast biopsy site mild ecchymosis, no evidence of infection or hematoma - Musculoskeletal Musculoskeletal: Present: gait normal - Psychiatric Psychiatric: Present: A&O x's 3, appropriate affect, intact judgment & insight Assessment and Plan Assessment: Impression: 1. right breast invasive cancer, Stage IB 2. irregular heart rate up to 140 Plan: 1. appointment with medical oncology 2. patient to be evaluated in ER related to irregular heart rate 3. Follow-up here in 2 weeks Cc: encounter 25 minutes, > 50% of time in planning and counselling Time with Patient: Less than 30
[2020-04-25 11:52] VITALS: BP 115/78; PULSE 138; RESP 16; TEMP 97.9
== END | disposition home or self-care (01) ==
LOC: WWCWWP 10:04
PROVIDERS: ATTEND Surgery
DX: Z53.9 Procedure and treatment not carried out, unspecified reason (principal)

== ENCOUNTER 2020-06-24 07:23 | Day surgery (SDC) | payer MEDICARE ==
[2020-06-19 14:40] VITALS: BMI 25.8
[~2020-06-24 07:23] MED LIST: DEXAMETHASONE SOD PHOSPHATE 10 MG/ML 1 ML VIAL IV ONE; HEPARIN SODIUM,PORCINE 5,000 UNIT/ML 1 ML VIAL SQ ONE; HYDROmorphone 0.5 MG/0.5 ML SYRINGE IVP PRN; LACTATED RINGERS 1,000 ML IV SCH; LIDOCAINE 1% (10MG/ML) FOR IV START INTRADERMA PRN; MIDAZOLAM 2 MG/2 ML VIAL IV PRN; ONDANSETRON 4 MG/2 ML VIAL IVP ONE; Pre Op ABX Message 1 EACH MISC MISCELLANE ONE
[2020-06-24] MEDS ORDERED: ONDANSETRON 4 MG/2 ML VIAL ONE (08:02)
[2020-06-24] MEDS ORDERED: HEPARIN SODIUM,PORCINE 5,000 UNIT/ML 1 ML VIAL ONE (08:02)
[2020-06-24] MEDS ORDERED: SUCCINYLCHOLINE CHLORIDE 100 MG/5 ML SYR IV ONE (08:51)
[2020-06-24] MEDS ORDERED: fentaNYL (PF) 50 MCG/ML 2 ML AMP ONE (08:51)
[2020-06-24] MEDS ORDERED: LIDOCAINE 1% INJ 10MG/ML (20 ML MDV) ONE (08:51)
[2020-06-24] MEDS ORDERED: MIDAZOLAM 2 MG/2 ML VIAL ONE (08:51)
[2020-06-24] MEDS ORDERED: PROPOFOL 10 MG/ML 20 ML VIAL IV ONE (08:51)
[2020-06-24] MEDS ORDERED: ePHEDrine SULFATE/0.9% NACL/PF 50 MG/5 ML SYRINGE IV ONE (08:51)
--- NOTE | 2020-06-24 08:51 | P.PN ---
Progress Note - Text Progress Note Date: 06/24/20 Lesion right breast is palpable. The patient will therefore not undergo a needle localization. We have discussed doing this via mastopexy incision however the lesion is encroaching on the skin with some dimpling and therefore we would be best to take some skin with the resection. The patient does not wish mastopexy to be performed, she understands she will have some tissue loss from the area of resection and some skin resection with removal of the lesion. Additionally she was given the option of possible neoadjuvant therapy which she refused.
--- NOTE | 2020-06-24 08:58 | P.NAPBC ---
NAPBC Queries - NAPBC Queries Was patient's case review presented at [facility] tumor board? If no, comment.: Yes Was patient's pathology reviewed at [facility]? If no, comment.: Yes Was breast conservation surgery offered? If no, comment.: Yes Was sentinel node biopsy offered? If no, comment.: Yes Was diagnosis confirmed by percutaneous core biopsy? If no, comment.: Yes Is patient mastectomy patient?: No Was a preop referral to reconstructive surgeon offered?: No (lumpectomy patient) Clinical Stage: Stage IB, [id number]+Her2-G2
--- NOTE | 2020-06-24 09:40 | NM ---
EXAMINATION TYPE: NM sentinel node injection DATE OF EXAM: 06/24/2020 COMPARISON: NONE HISTORY: Right breast carcinoma TECHNIQUE AND FINDINGS: The procedure of sentinel lymph node injection was explained to the patient. The benefits, alternatives, and risks were discussed. An informed consent was then obtained. Overlying skin is cleaned with sterile alcohol. Following this, 539 uCi Tc99m Tilmanocept was inject ed in the upper outer aspect of the right nipple intradermally. The patient tolerated the procedure well without any immediate complication. The patient was kept in the radiology department for short stay after the procedure and then taken to surgery for surgical p rocedure what is presumed intraoperative gamma probe will be used for sentinel lymph node detection. IMPRESSION: Right breast radiotracer injection for sentinel node localization as above.
--- NOTE | 2020-06-24 11:16 | P.OP ---
Date of Procedure: 06/24/20 Preoperative Diagnosis: Right breast cancer Postoperative Diagnosis: Same Procedure(s) Performed: Right breast partial mastectomy, onco-plastic tissue transfer, sentinel node biopsy Anesthesia: NADEEN Surgeon: Sara Rascon Estimated Blood Loss (ml): 20 IV fluids (ml): 600 Pathology: other (Axillary node, breast tissue) Condition: stable Disposition: same day Indications for Procedure: Right breast cancer Operative Findings: Right breast cancer Description of Procedure: Stephanie is a 75-year-old white female diagnosed with right breast cancer in the 12 o'clock position of the right breast. This was diagnosed via biopsy. She declined any neoadjuvant treatment. She opted for a lumpectomy and sentinel node biopsy. Risks and benefits of the procedure were discussed with the patient and she wished to proceed. Tumor size was approximately 2.3 cm. Secondary to the size of her breast size of the defect would be created. We discussed onco-plastic tissue transfer. Additionally the tumor was causing some dimpling of the skin and anterior skin was removed. The patient was taken to the operating room and following induction of anesthesia the right axilla was interrogated. There was noted to be radioactivity in the axilla after the sentinel node injection had been performed and therefore no methylene blue was injected. Using the neoprobe the area of greatest radioactivity was identified. An incision was made over this area. Dissection into the deep axillary tissues revealed a radioactive lymph node. This was removed using the Harmonic scalpel to maintain hemostasis. The patient second count on the lymph node was 7749, the background count was 12. After assured that hemostasis was attained the wound was well irrigated. Vicryl sutures were placed. 4-0 Monocryl was used to close the skin. The sentinel node was sent to pathology The area of the breast was then approached. The lesion was in the 12 o'clock position and causing dimpling of the skin. An elliptical area of skin was removed over the area of the tumor and dissection was carried circumferentially inferiorly to the pectoralis major muscle. Dissection was performed off the pectoralis major muscle and the specimen was removed. The wound was well irrigated and examined for hemostasis. To close the defect mobilization of the medial and lateral pillars of breast tissue was performed. Medially 15 cm x 5 cm of tissue was mobilized for a total of 75 cm of tissue mobilized; laterally 10 cm x 5 cm of tissue was mobilized for a total of 50 cm of tissue mobilized. A total of 122 cm of tissue was mobilized. New margins medially, laterally inferiorly and superiorly were obtained. Anterior skin was taken, and posterior dissection was carried to the pectoralis major muscle. Ti tanium clips were placed to tiffanie the cavity. The lateral pillars were brought together and sutured in place using 3-0 Vicryl suture. The was well irrigated and the subcutaneous tissues were closed using 3-0 Vicryl suture. This was followed by closure of the skin with 4-0 Monocryl. Secondary to the fact that we needed to remove skin to perform the resection an effective mastopexy of the nipple areolar complex was performed. The nipple areolar complex raised approximately 1 cm. All instrument and sponge counts were correct at the end of the case. The patient tolerated the procedure in stable condition. Specimens were painted for orientation.
--- NOTE | 2020-06-24 11:20 | P.DS ---
Providers Attending physician: Sara Rascon Primary care physician: Sky Be Plan - Discharge Summary Discharge Rx Participant: No New Discharge Prescriptions: No Action Multivitamin [Multivitamins Adult Gummies] 1 each PO DAILY Paliperidone IM [Invega Sustenna] 117 mg IM QMONTH Magnesium 200 mg PO QAM Discharge Medication List Multivitamin [Multivitamins Adult Gummies] 1 each PO DAILY 03/04/20 [History] Paliperidone IM [Invega Sustenna] 117 mg IM QMONTH 04/17/20 [History] Magnesium 200 mg PO QAM 06/12/20 [History] Follow up Appointment(s)/Referral(s): Sara Rascon MD [STAFF PHYSICIAN] - 1 Week Activity/Diet/Wound Care/Special Instructions: do not drive for 24 hours after discharge or if taking narcotic pain medication may shower after 48 hours wear bra at all times Discharge Disposition: HOME SELF-CARE
[2020-06-24 11:22] VITALS: TEMP 97.1
[2020-06-24 12:17] VITALS: RESP 16
[2020-06-24 12:53] VITALS: BP 114/72; PULSE 85
== END 2020-06-24 13:04 | disposition home or self-care (01) ==
LOC: OR 07:23
PROVIDERS: ATTEND Surgery
DX: C50.811 Malignant neoplasm of overlapping sites of right female breast (principal); Z88.5 Allergy status to narcotic agent; R00.0 Tachycardia, unspecified; I95.9 Hypotension, unspecified; J44.9 Chronic obstructive pulmonary disease, unspecified; Z87.891 Personal history of nicotine dependence; Z79.899 Other long term (current) drug therapy; Z90.49 Acquired absence of other specified parts of digestive tract; Z85.41 Personal history of malignant neoplasm of cervix uteri
CPT/HCPCS: 19301; 38525; 14301; 14302 ×2; 88342; 88307; 88341; 38792; A9520; J2250; J1644; J1100; J2405; J2001; J3010; J0330; J2704

== ENCOUNTER → 2020-06-27 | Outpatient (CLI) | payer MEDICARE ==
[2020-06-27 10:29] VITALS: BP 119/81; PULSE 118; RESP 18; TEMP 98.8
--- NOTE | 2020-06-27 10:36 | P.PN ---
Progress Note - Text Progress Note Date: 06/27/20 Stage IB right breast cancer, T2 N0 M0 G2 ER/AZ positive HER-2/kapil negative Stephanie is a 75-year-old white female status post right breast lumpectomy and sentinel node biopsy on [id number]. Her pathology revealed the sentinel node was negative and the margins were negative on the excision. She has no complaints following the procedure. The invasive component of the tumor was 27 x 25 mm in size. This is a stage IB tumor. Physical exam: Lungs: Clear Heart: Regular rate and rhythm Right breast: And axilla incisions clean and dry, ecchymosis resolving medial aspect of the right breast, no evidence of infection or hematoma Impression: 1. Patient status post right breast lumpectomy sentinel node biopsy and 7 [id number] patient doing well postop Plan: 1. Appointment medical oncology 2. Appointment radiation oncology 3. Follow. 3 weeks and then routine surveillance in 3 months CC: [place]
== END | disposition home or self-care (01) ==
LOC: WWCWWP 10:02
PROVIDERS: ATTEND Surgery
DX: Z53.9 Procedure and treatment not carried out, unspecified reason (principal)

== ENCOUNTER → 2020-07-31 | Outpatient (CLI) | payer MEDICARE ==
[2020-07-31 13:22] VITALS: BP 122/84; PULSE 130; RESP 18; TEMP 97.6
--- NOTE | 2020-07-31 14:34 | P.PN ---
Progress Note - Text Progress Note Date: 07/31/20 stage IB right breast cancer Stephanie is a 75 year old white female who underwent a right breast lumpectomy and SNB on 06-24-20[place] [id number]. At that time she did have some ecchymosis in the medial aspect of the right breast with no evidence of infection or hematoma. She subsequently was seen by Dr. Nelson and he noticed some erythema of the breast and she was started on Keflex. She was seen here on 07-16-20 and given another course of AB. She states there is edema is resolving and the area of ecchymosis also is resolving. She is not complaining of any pain at the surgical site . She has not had any radiation yet. She has been seen by Dr. Conrad and was started on Femara. Physical exam: Heart: Regular rate and rhythm Lungs: Clear Breasts: Patient with persistent erythema as well as an area of previous change in the medial aspect of the incision, the area of erythema is 12-1/2 cm in width and 5 cm greatest erythema-in extending to 11 cm total in height, it appears to be fluctuance at the site Impression/plan: 1. Possible infected seroma/attempt aspiration 2. Continue antibiotics 3. infectious disease consult Cc: Dr. Be
--- NOTE | 2020-07-31 14:41 | P.PCN ---
Date of Procedure: 07/31/20 Preoperative Diagnosis: Possible infected seroma Postoperative Diagnosis: Same Procedure(s) Performed: Aspiration/lavage infected seroma Surgeon: Sara Rascon Pathology: other (Culture sent) Condition: stable Disposition: same day Indications for Procedure: Swelling at lumpectomy site with overlying erythema Operative Findings: Seroma fluid Description of Procedure: The lumpectomy site was noted to be swollen with some bullous changes of the skin at this site. 18-gauge was inserted into the site and the fluid was obtained. Approximately 50 mL of dark serous fluid was drained there was no definite purulent material in this. The skin itself appeared to be bullous over the area of drainage and began to open. The stay suture was placed through the medial and lateral aspect of the opening of 3-0 ethilon. Was well irrigated. It was packed using 1 inch plane packing. The patient tolerated the procedure in stable condition. The area of erythema was noted to be 12.5 cm in width as well as 5 cm in vertical of dark erythema but a total of 11 cm in vertical. Patient tolerated the procedure in stable condition.
== END | disposition home or self-care (01) ==
LOC: WWCWWP 12:55
PROVIDERS: ATTEND Surgery
DX: D64.9 Anemia, unspecified (principal)
CPT/HCPCS: 87070; 87075; 87205

== ENCOUNTER → 2020-08-01 | Outpatient (CLI) | payer MEDICARE ==
[2020-08-01 07:55] VITALS: BP 137/79; PULSE 91; RESP 16; TEMP 97.9
--- NOTE | 2020-08-01 07:57 | P.PN ---
Progress Note - Text Stephanie is a 75 year old white female who underwent a right breast lumpectomy and SNB on 06-24-20[place] [id number]. At that time she did have some ecchymosis in the medial aspect of the right breast with no evidence of infection or hematoma. She subsequently was seen by Dr. Nelson and he noticed some erythema of the breast and she was started on Keflex. She was seen here on 07-16-20 and given another course of AB. She was seen yesterday was noted to be a seroma which was drained. At this time the area of erythema has decreased in intensity. She has no fever chills and is not complaining of any pain. Cultures are pending. Physical exam: Heart: Regular rate and rhythm Lungs: Clear Breasts: Decreased erythema of the breast, packing changed Impression: 1. Patient status post I&D of seroma right breast 2. Decreased erythema Plan: 1. Continue resident wound care 2. Continue antibiotic prescription amoxicillin 3. Follow-up next week 4. If any questions or concerns patient will call
== END | disposition home or self-care (01) ==
LOC: WWCWWP 07:36
PROVIDERS: ATTEND Surgery
DX: Z53.9 Procedure and treatment not carried out, unspecified reason (principal)

== ENCOUNTER → 2020-08-08 | Outpatient (CLI) | payer MEDICARE ==
[2020-08-08 09:51] VITALS: BP 125/84; PULSE 136; RESP 18; TEMP 97.9
--- NOTE | 2020-08-08 10:06 | P.PN ---
Subjective Progress Note Date: 08/08/20 Stephanie is a 75-year-old white female who underwent a right breast lumpectomy [place] [id number]. [place] [address]. At that time she did have some ecchymosis in the medial aspect of the right breast with no evidence of infection or hematoma. She subsequently was seen by Dr. Nelson and he noticed some erythema and she was started on Keflex. She was seen here on 9420 and noted to have a seroma which was drained. At that time there was an area of erythema and she was given a prescription for amoxicillin. Cultures were obtained which showed no growth, however moderate PMNs were seen. She is not complaining of any pain. She is not complaining of any fever or chills. Physical examination: Lungs: Clear Heart: Regular rate and rhythm Right breast lumpectomy site packing to be changed Erythema decreased Impression: 1. Patient status post I&D of seroma right breast 2. Decreased erythema Plan: 1. Continue present wound care 2. Continue amoxicillin 3. Follow-up in 2 weeks 4. Call if any questions or concerns CC: Dr. Be Objective - Vital Signs Vital signs: Vital Signs Temp 97.9 F 08/08/20 09:48 Pulse 136 H 08/08/20 09:48 Resp 18 08/08/20 09:48 BP 125/84 08/08/20 09:48 Pulse Ox 96 08/08/20 09:48 Intake & Output 08/07/20 08/08/20 08/08/20 18:59 06:59 18:59 Weight 72.575 kg
== END | disposition home or self-care (01) ==
LOC: WWCWWP 09:40
PROVIDERS: ATTEND Surgery
DX: Z53.9 Procedure and treatment not carried out, unspecified reason (principal)

== ENCOUNTER → 2020-08-22 | Outpatient (CLI) | payer MEDICARE ==
[2020-08-22 14:07] VITALS: BP 106/74; PULSE 135; RESP 18; TEMP 97.7
--- NOTE | 2020-08-22 14:24 | P.PN ---
Progress Note - Text Progress Note Date: 08/22/20 Stephanie is a 75-year-old white female who underwent a right breast lumpectomy [place] [id number]. [place] [address]. At that time she did have some ecchymosis in the medial aspect of the right breast with no evidence of infection or hematoma. She subsequently was seen by Dr. Nelson and he noticed some erythema and she was started on Keflex. She was seen here on 9420 and noted to have a seroma which was drained, and the wound opened spontaneously. At that time there was an area of erythema and she was given a prescription for amoxicillin. Cultures were obtained which showed no growth, however moderate PMNs were [place] [address]. She is not complaining of any pain. She is not complaining of any fever or chills. Physical examination: Lungs: Clear Heart: Regular rate and rhythm Right breast lumpectomy site packing changed, cavity 6 cm by 4 cm depth 1 cm Erythema decreased Impression: 1. Patient status post drainage of seroma right breast 2. Decreased erythema 3. No evidence of infection Plan: 1. Continue present wound care 2. Follow-up with radiation and medical oncology 3. Follow-up in 4 weeks 4. Call if any questions or concerns
== END | disposition home or self-care (01) ==
LOC: WWCWWP 13:54
PROVIDERS: ATTEND Surgery
DX: Z53.9 Procedure and treatment not carried out, unspecified reason (principal)

== ENCOUNTER 2020-09-04 23:37 | Inpatient (IN) | payer MEDICARE ==
[2020-09-04] MEDS ORDERED: SODIUM CHLORIDE 0.9% 1,000 ML IV STA (23:53)
[2020-09-05 00:28] LABS: Basophils # (A) 0.1 k/uL (0-0.2); Basophils % (A) 1 %; Eosinophils # (A) 0.1 k/uL (0-0.7); Eosinophils % (A) 1 %; HCT 44.2 % (34.0-46.0); HGB 14.9 gm/dL (11.4-16.0); Lymphocytes # (A) 1.5 k/uL (1.0-4.8); Lymphocytes % (A) 19 %; MCH 31.8 pg (25.0-35.0); MCHC 33.7 g/dL (31.0-37.0); MCV 94.2 fL (80.0-100.0); Mean Platelet Volume 6.4; Monocytes # (A) 0.5 k/uL (0-1.0); Monocytes % (A) 6 %; Neutrophils # (A) 5.8 k/uL (1.3-7.7); Neutrophils % (A) 72 %; Platelet Count 276 k/uL (150-450); RDW 12.5 % (11.5-15.5)
[2020-09-05 00:38] LABS: INR 0.9 (<1.2); Partial Thromboplastin Time 23.1 sec (22.0-30.0); Prothrombin Time 9.5 sec (9.0-12.0)
[2020-09-05 00:41] LABS: ALT 17 U/L (4-34); AST 27 U/L (14-36); African American GFR (CKD) >90 (>60 ml/min/1.73 sqM); Albumin 4.2 g/dL (3.5-5.0); Alkaline Phosphatase 133 U/L (38-126); Anion Gap 9 mmol/L; Blood Urea Nitrogen 9 mg/dL (7-17); Calcium 9.7 mg/dL (8.4-10.2); Carbon Dioxide 24 mmol/L (22-30); Chloride 107 mmol/L (98-107); Glucose 125 mg/dL (74-99); Magnesium 1.9 mg/dL (1.6-2.3); Non-African American GFR(CKD) 86 (>60 ml/min/1.73 sqM); Potassium 4.3 mmol/L (3.5-5.1); Sodium 140 mmol/L (137-145); Total Bilirubin 0.4 mg/dL (0.2-1.3); Total Protein 7.4 g/dL (6.3-8.2)
--- NOTE | 2020-09-05 01:07 | XR ---
EXAMINATION TYPE: XR chest 2V DATE OF EXAM: 09/05/2020 COMPARISON: 04/25/2020 HISTORY: Dysrhythmia TECHNIQUE: 2 views FINDINGS: There is no heart failure nor confluent pneumonic infiltrate. Costophrenic angles are clear . There are no hilar masses. There are chest leads. Bony thorax is intact. IMPRESSION: No active cardiopulmonary disease. Normal heart. No change compared to old exam.
--- NOTE | 2020-09-05 01:17 | ED ---
SOB HPI - General Chief Complaint: Shortness of Breath Stated Complaint: SOB Time Seen by Provider: 09/04/20 23:45 Source: patient Mode of arrival: wheelchair Limitations: no limitations - History of Present Illness Initial Comments: Stephanie is a pleasant 75-year-old female is brought to the ER today by her daughter for evaluation of shortness of breath. Patient reports that since noon she just began feeling like she couldn't catch her breath. She states she felt like her heart was racing. She does have a history of sinus tachycardia and when evaluated in the past was noted that she had hypomagnesemia. She is given IV magnesium, she follow with cardiology in office one time. She takes a magnesium supplement daily but other than that has no cardiac history no history of A. fib and is on no cardiac medications. Patient denies any chest pain but reports she feels like she can't catch her breath and that her heart is racing. She states she was on thyroid medications which she is young but no longer is. Denies any history of DVT or PE. She reports that this feeling is making her feel somewhat nauseated but she's had no nausea or vomiting she's been eating and drinking well. - Related Data Home Medications Medication Instructions Recorded Confirmed Multivitamin [Multivitamins Adult 1 each PO QAM 03/04/20 08/22/20 Gummies] Paliperidone IM [Invega Sustenna] 117 mg IM QMONTH 04/17/20 08/22/20 Magnesium 200 mg PO QAM 06/12/20 08/22/20 Allergies Allergy/AdvReac Type Severity Reaction Status Date / Time codeine Allergy pt states Verified 09/04/20 23:43 numbness in mouth and lips turned purple Review of Systems ROS Statement: Those systems with pertinent positive or pertinent negative responses have been documented in the HPI. ROS Other: All systems not noted in ROS Statement are negative. Past Medical History Past Medical History: Cancer, Thyroid Disorder Additional Past Medical History / Comment(s): vit b deficiency, stage 3 cervical cancer-sx only, in past took meds for thyroid but was taken off it 15 years ago, breast cancer dx 04/16 History of Any Multi-Drug Resistant Organisms: None Reported Past Surgical History: Appendectomy, Breast Surgery, Hysterectomy Past Anesthesia/Blood Transfusion Reactions: No Reported Reaction Past Psychological History: No Psychological Hx Reported Smoking Status: Former smoker Past Alcohol Use History: None Reported Past Drug Use History: None Reported - Past Family History Mother Family Medical History: Cancer Additional Family Medical History / Comment(s): colon cancer Father Family Medical History: Cancer Additional Family Medical History / Comment(s): lung cancer General Exam - General Exam Comments Initial Comments: Physical Exam GENERAL: Patient is well-developed and well-nourished. Patient is nontoxic and well-hydrated and is in no distress. HENT: Normocephalic, Atraumatic. EYES: PERRL, EOMI PULMONARY: Unlabored respirations. No audible rales rhonchi or wheezing was noted. CARDIOVASCULAR: Tachycardic regular 1+ pitting edema bilateral lower extremities ABDOMEN: Soft and nontender with normal bowel sounds. SKIN: Skin is clear with no lesions or rashes and otherwise unremarkable. : Deferred NEUROLOGIC: Patient is alert and oriented x3. Moving all extremities spontaneously MUSCULOSKELETAL: Normal extremities with adequate strength and full range of motion. No lower extremity swelling or edema. No calf tenderness. PSYCHIATRIC: Normal psychiatric evaluation. Limitations: no limitations Course Vital Signs 09/04/20 09/04/20 09/05/20 23:39 23:55 01:25 Temperature 97.5 F L Pulse Rate 156 H 157 H Pulse Rate [ Pulse Oximetery ] Respiratory 18 22 18 Rate Blood Pressure 146/74 150/96 Blood Pressure [Left Arm] O2 Sat by Pulse 97 97 Oximetry 09/05/20 09/05/20 09/05/20 02:11 02:49 03:18 Temperature 97.9 F Pulse Rate 122 H 86 Pulse Rate [ 98 Pulse Oximetery ] Respiratory 18 18 18 Rate Blood Pressure 150/90 142/77 Blood Pressure 148/96 [Left Arm] O2 Sat by Pulse 96 96 95 Oximetry Medical Decision Making - Medical Decision Making The patient was seen and evaluated immediately upon arrival to the emergency department patient was noted to be profoundly tachycardic with heart rates in the 150s, oxygen saturation the mid 90s Upon arrival EKG was obtained confirmed sinus tachycardia with a rate in the 150s IV access was obtained labs were obtained Patient's heart rate decreased to the 110s repeat EKG again confirmed sinus tachycardia Labs resulted with no significant abnormalities no electrolyte abnormalities, troponin not elevated Given persistent tachycardia and mild hypoxia CT PE study was obtained and resulted with no acute findings Patient's heart rate seems to be having out in the 120s. Occasionally does increase to the 150s with the patient gets anxious. At this time we will plan to admit the patient for further observation and evaluation by cardiology. Patient is agreeable with this plan. - Lab Data Result diagrams: 09/05/20 00:21 09/05/20 00:21 Lab Results 09/05/20 09/05/20 09/05/20 Range/Units 00:21 00:21 00:21 WBC 8.0 (3.8-10.6) k/uL RBC 4.70 (3.80-5.40) m/uL Hgb 14.9 (11.4-16.0) gm/dL Hct 44.2 (34.0-46.0) % MCV 94.2 (80.0-100.0) fL MCH 31.8 (25.0-35.0) pg MCHC 33.7 (31.0-37.0) g/dL RDW 12.5 (11.5-15.5) % Plt Count 276 (150-450) k/uL Neutrophils % 72 % Lymphocytes % 19 % Monocytes % 6 % Eosinophils % 1 % Basophils % 1 % Neutrophils # 5.8 (1.3-7.7) k/uL Lymphocytes # 1.5 (1.0-4.8) k/uL Monocytes # 0.5 (0-1.0) k/uL Eosinophils # 0.1 (0-0.7) k/uL Basophils # 0.1 (0-0.2) k/uL PT 9.5 (9.0-12.0) sec INR 0.9 (<1.2) APTT 23.1 (22.0-30.0) sec Sodium 140 (137-145) mmol/L Potassium 4.3 (3.5-5.1) mmol/L Chloride 107 (98-107) mmol/L Carbon Dioxide 24 (22-30) mmol/L Anion Gap 9 mmol/L BUN 9 (7-17) mg/dL Creatinine 0.68 (0.52-1.04) mg/dL Est GFR (CKD-EPI)AfAm >90 (>60 ml/min/1.73 sqM) Est GFR (CKD-EPI)NonAf 86 (>60 ml/min/1.73 sqM) Glucose 125 H (74-99) mg/dL Calcium 9.7 (8.4-10.2) mg/dL Magnesium 1.9 (1.6-2.3) mg/dL Total Bilirubin 0.4 (0.2-1.3) mg/dL AST 27 (14-36) U/L ALT 17 (4-34) U/L Alkaline Phosphatase 133 H (38-126) U/L Troponin I (0.000-0.034) ng/mL NT-Pro-B Natriuret Pep pg/mL Total Protein 7.4 (6.3-8.2) g/dL Albumin 4.2 (3.5-5.0) g/dL TSH 5.240 H (0.465-4.680) mIU/L Free T4 1.31 (0.78-2.19) ng/dL 09/05/20 09/05/20 Range/Units 00:21 00:21 WBC (3.8-10.6) k/uL RBC (3.80-5.40) m/uL Hgb (11.4-16.0) gm/dL Hct (34.0-46.0) % MCV (80.0-100.0) fL MCH (25.0-35.0) pg MCHC (31.0-37.0) g/dL RDW (11.5-15.5) % Plt Count (150-450) k/uL Neutrophils % % Lymphocytes % % Monocytes % % Eosinophils % % Basophils % % Neutrophils # (1.3-7.7) k/uL Lymphocytes # (1.0-4.8) k/uL Monocytes # (0-1.0) k/uL Eosinophils # (0-0.7) k/uL Basophils # (0-0.2) k/uL PT (9.0-12.0) sec INR (<1.2) APTT (22.0-30.0) sec Sodium (137-145) mmol/L Potassium (3.5-5.1) mmol/L Chloride (98-107) mmol/L Carbon Dioxide (22-30) mmol/L Anion Gap mmol/L BUN (7-17) mg/dL Creatinine (0.52-1.04) mg/dL Est GFR (CKD-EPI)AfAm (>60 ml/min/1.73 sqM) Est GFR (CKD-EPI)NonAf (>60 ml/min/1.73 sqM) Glucose (74-99) mg/dL Calcium (8.4-10.2) mg/dL Magnesium (1.6-2.3) mg/dL Total Bilirubin (0.2-1.3) mg/dL AST (14-36) U/L ALT (4-34) U/L Alkaline Phosphatase (38-126) U/L Troponin I <0.012 (0.000-0.034) ng/mL NT-Pro-B Natriuret Pep 38 pg/mL Total Protein (6.3-8.2) g/dL Albumin (3.5-5.0) g/dL TSH (0.465-4.680) mIU/L Free T4 (0.78-2.19) ng/dL - EKG Data -: EKG Interpreted by Ma EKG Comments: EKG obtained due to tachycardia Initial EKG obtained at 2355, repeat is 151, rhythm is a narrow complex regular tachycardia and does appear to be P waves before each QRS, possibly a delta wave noted. This is sinus tachycardia with PACs. Repeat EKG was obtained when the patient's heart rate improved, repeat EKG obtained at 12:09 AM is 111, rhythm is narrow complex regular rhythm with frequent ectopy, is a P-wave before each QRS consistent with a sinus tachy cardia. ND 136, QRS 70, QTC 456. No acute ST elevations or depressions no evidence of acute ischemia or infarction. Disposition Clinical Impression: Tachycardia Disposition: ADMITTED IP TO THIS HOSP Condition: Stable Referrals: None,Stated [Primary Care Provider] - 1-2 days
[2020-09-05 01:51] LABS: T4, Free (Free Thyroxine) 1.31 ng/dL (0.78-2.19)
--- NOTE | 2020-09-05 01:53 | CT ---
EXAMINATION TYPE: CT chest angio for PE DATE OF EXAM: 09/05/2020 COMPARISON: 04/25/2020 HISTORY: pe Short of breath CT DLP: 328.1 mGycm Automated exposure control for dose reduction was used. CONTRAST: Performed with IV Contrast, patient injected with 70 mL of Isovue 370. There are 3-D post processed images. The lungs are clear of consolidation. There is no evidence of a pulmonary mass. There is no pleural e ffusion. There is no pericardial effusion. There is minimal subsegmental atelectasis at the lung base s. Heart size is normal. There are no hilar masses. There is no mediastinal adenopathy. Thoracic aorta is intact. There is no aneurysm or dissection. There is normal contrast opacification of the pulmonary arteries. There are no filling defects. Bony thorax appears intact. There are multiple cysts in the liver. IMPRESSION: Negative exam. No evidence of pulmonary embolism. Minimal subsegmental atelectasis at the lung bases.
[2020-09-05] MEDS ORDERED: METOPROLOL TARTRATE 5 MG/5 ML VIAL IVP STA (02:14)
[2020-09-05] MEDS ORDERED: NALOXONE 0.4 MG/ML 1 ML VIAL IV PRN (02:38)
--- NOTE | 2020-09-05 04:24 | P.HPIM ---
History of Present Illness H&P Date: 09/05/20 Patient is 75-year-old female with a PMH of hypothyroidism, recently diagnosed breast cancer status post right-sided mastectomy who presented to the ED with complaints of palpitations. The patient reports that she was in her usual state of health until this evening when she suddenly felt "shaky". She checked her pulse via a pulse ox monitor which read it as 150s. The patient subsequently activated EMS and was brought to the emergency room where the initial EKG revealed sinus tachycardia at 151 bpm with subsequent EKG showing tachycardia at 111 bpm. At time of interview she reported some palpitations. Reported associated shortness of breath. Also reported a vague diffuse lower abdominal pain, pressure-like, nonradiating, with no alleviating or exacerbating features, ongoing since the onset of pain. Denied any additional complaints. Denied chest pain, fever, chills, nausea, vomiting, or diarrhea. Chest CTA was negative for PE with chest x-ray unremarkable. Laboratory evaluation from the emergency room was reviewed and notably troponin I was less than 0.012, proBNP 38, TSH 5.04, with free T4 1.31. Review of Systems Pertinent positives and negatives as discussed in HPI, a complete review of systems was performed and all other systems are negative. Past Medical History Past Medical History: Cancer, Thyroid Disorder Additional Past Medical History / Comment(s): vit b deficiency, stage 3 cervical cancer-sx only, in past took meds for thyroid but was taken off it 15 years ago, breast cancer dx 04/16 History of Any Multi-Drug Resistant Organisms: None Reported Past Surgical History: Appendectomy, Breast Surgery, Hysterectomy Past Anesthesia/Blood Transfusion Reactions: No Reported Reaction Past Psychological History: No Psychological Hx Reported Smoking Status: Former smoker Past Alcohol Use History: None Reported Past Drug Use History: None Reported - Past Family History Mother Family Medical History: Cancer Additional Family Medical History / Comment(s): colon cancer Father Family Medical History: Cancer Additional Family Medical History / Comment(s): lung cancer Medications and Allergies Home Medications Medication Instructions Recorded Confirmed Type Multivitamin [Multivitamins Adult 1 each PO QAM 03/04/20 08/22/20 History Gummies] Paliperidone IM [Invega Sustenna] 117 mg IM QMONTH 04/17/20 08/22/20 History Magnesium 200 mg PO QAM 06/12/20 08/22/20 History Allergies Allergy/AdvReac Type Severity Reaction Status Date / Time codeine Allergy pt states Verified 09/04/20 23:43 numbness in mouth and lips turned purple Physical Exam Vitals: Vital Signs Temp Pulse Resp BP Pulse Ox 09/05/20 02:49 86 18 142/77 96 09/05/20 02:11 122 H 18 150/90 96 09/05/20 01:25 157 H 18 150/96 97 09/04/20 23:55 22 09/04/20 23:39 97.5 F L 156 H 18 146/74 97 Intake and Output 09/04/20 09/04/20 09/05/20 14:59 22:59 06:59 Other: Weight 72.575 kg General: non toxic, no distress, appears at stated age, normal weight Derm: no unusual rashes/lesions no unusual ecchymoses, warm, dry Head: atraumatic, normocephalic, symmetric Eyes: EOMI, no lid lag, anicteric sclera, pupils equal round reactive to light ENT: Nose and ears atraumatic, no thrush, no pharyngeal erythema Neck: No thyromegaly, no cervical lymphadenopathy, trachea midline, supple Mouth: no lip lesion, mucus membranes moist Cardiovascular: S1S2 reg, no murmur, positive posterior tibial pulse bilateral, no edema, capillary refill less than 2 seconds Lungs: CTA bilateral, no rhonchi, no rales , no accessory muscle use Abdominal: soft, nontender to palpation, no guarding, no appreciable organomegaly, normal bowel sounds Ext: no gross muscle atrophy, muscle strength 5 out of 5 in all 4 extremities grossly, no contractures, Neuro: CN II-XI grossly intact, light touch intact all 4 extremities, finger to nose within normal limits, Psych: Alert, oriented, appropriate affect Results CBC & Chem 7: 09/05/20 00:21 09/05/20 00:21 Labs: Abnormal Lab Results - Last 24 Hours (Table) 09/05/20 Range/Units 00:21 Glucose 125 H (74-99) mg/dL Alkaline Phosphatase 133 H (38-126) U/L TSH 5.240 H (0.465-4.680) mIU/L Assessment and Plan Plan: Tachycardia, possibly anxiety related -Continue with cardiac monitoring -Cardiology consult -Status post Lopressor 5 mg IV push Hypothyroidism -Continue with home meds DVT prophylaxis -Heparin subq The patient is admitted with an anticipated less than 2 midnight stay for evaluation of palpitations CODE STATUS: Full Code Discussed with: PatientFlorence Anticipated discharge date: 09/[address]: Home A total of 35 minutes was spent on the care of this complex patient more than 50% of the time was spent in counseling and care coordination.
--- NOTE | 2020-09-05 09:13 | P.CRDCN ---
History of Present Illness Consult date: 09/05/20 Chief complaint: Palpitation History of present illness: This is a very pleasant 75-year-old female patient with no significant cardiac or vascular surgery but history of breast cancer who underwent right breast surgery in May 2020, presented to the hospital complaining of heart racing. She was in her usual state of health until yesterday when she was at home and she started feeling heart racing without any dizziness or lightheadedness and without any syncope. No symptoms of chest pain or chest discomfort. She checked her heart rate and that was elevated around 114 bpm and because of that she decided to come to the emergency department. In the emergency department she was given IV beta laquita and that slow her heart rate temporarily. She underwent 2 EKGs. Initial EKG showed sinus rhythm with sinus tachycardia but the subsequent EKG showed what it seems to be an atrial flutter. The patient is not aware of any prior history of atrial fibrillation or atrial flutter. She is not on any beta laquita or calcium channel laquita as an outpatient and she is not on any oral anticoagulation. No history of coronary artery disease and no history of congestive heart failure and no history of diabetes nor any vascular disease in the past. No history of TIA or stroke. When she was seen and examined this morning she continues to be tachycardic with a resting heart rate above 100 beats per minutes. I am in process of obtaining another EKG at this point. Beside that she underwent a TSH but that came in to be slightly elevated but her free T4 seems to be within normal limits. The rest of her blood work overall came in to be unremarkable. Past Medical History Past Medical History: Cancer, Thyroid Disorder Additional Past Medical History / Comment(s): vit b deficiency, stage 3 cervical cancer-sx only, in past took meds for thyroid but was taken off it 15 years ago, breast cancer dx 04/16 History of Any Multi-Drug Resistant Organisms: None Reported Past Surgical History: Appendectomy, Breast Surgery, Hysterectomy Additional Past Surgical History / Comment(s): breast removal/fluid removal- right Past Anesthesia/Blood Transfusion Reactions: No Reported Reaction Past Psychological History: No Psychological Hx Reported Smoking Status: Former smoker Past Alcohol Use History: None Reported Past Drug Use History: None Reported - Past Family History Mother Family Medical History: Cancer Additional Family Medical History / Comment(s): colon cancer Father Family Medical History: Cancer Additional Family Medical History / Comment(s): lung cancer Medications and Allergies Home Medications Medication Instructions Recorded Confirmed Type Multivitamin [Multivitamins Adult 1 each PO QAM 03/04/20 09/05/20 History Gummies] Paliperidone IM [Invega Sustenna] 117 mg IM Q30D 04/17/20 09/05/20 History Letrozole 2.5 mg PO DAILY 09/05/20 09/05/20 History Allergies Allergy/AdvReac Type Severity Reaction Status Date / Time codeine Allergy pt states Verified 09/05/20 08:47 numbness in mouth and lips turned purple Physical Exam Vitals: Vital Signs Temp Pulse Pulse Resp BP BP Pulse Ox 09/05/20 08:12 98.1 F 129 H 16 124/80 93 L 09/05/20 06:00 126 H 09/05/20 04:30 18 09/05/20 03:18 97.9 F 98 18 148/96 95 09/05/20 02:49 86 18 142/77 96 09/05/20 02:11 122 H 18 150/90 96 09/05/20 01:25 157 H 18 150/96 97 09/04/20 23:55 22 09/04/20 23:39 97.5 F L 156 H 18 146/74 97 Intake and Output 09/04/20 09/05/20 09/05/20 22:59 06:59 14:59 Intake Total 0 Balance 0 Intake: Oral 0 Other: Voiding Method Toilet # Voids 1 Weight 72.575 kg - Constitutional General appearance: no acute distress - Respiratory Respiratory: bilateral: CTA - Cardiovascular Rhythm: regular Heart sounds: normal: S1, S2 Results 09/05/20 00:21 09/05/20 00:21 Cardiac Enzymes 09/05/20 09/05/20 Range/Units 00:21 00:21 AST 27 (14-36) U/L Troponin I <0.012 (0.000-0.034) ng/mL Coagulation 09/05/20 Range/Units 00:21 PT 9.5 (9.0-12.0) sec APTT 23.1 (22.0-30.0) sec CBC 09/05/20 Range/Units 00:21 WBC 8.0 (3.8-10.6) k/uL RBC 4.70 (3.80-5.40) m/uL Hgb 14.9 (11.4-16.0) gm/dL Hct 44.2 (34.0-46.0) % Plt Count 276 (150-450) k/uL Comprehensive Metabolic Panel 09/05/20 Range/Units 00:21 Sodium 140 (137-145) mmol/L Potassium 4.3 (3.5-5.1) mmol/L Chloride 107 (98-107) mmol/L Carbon Dioxide 24 (22-30) mmol/L BUN 9 (7-17) mg/dL Creatinine 0.68 (0.52-1.04) mg/dL Glucose 125 H (74-99) mg/dL Calcium 9.7 (8.4-10.2) mg/dL AST 27 (14-36) U/L ALT 17 (4-34) U/L Alkaline Phosphatase 133 H (38-126) U/L Total Protein 7.4 (6.3-8.2) g/dL Albumin 4.2 (3.5-5.0) g/dL Current Medications Generic Name Dose Route Start Last Admin Trade Name Freq PRN Reason Stop Dose Admin Heparin Sodium (Porcine) 5,000 unit 09/05/20 08:00 Heparin Sodium,Porcine 5,000 Unit/Ml 1 Ml Vial SQ Q8HR CK Sodium Chloride 1,000 mls @ 100 mls/hr 09/04/20 23:53 09/05/20 02:44 Saline 0.9% IV 09/05/20 09:52 100 mls/hr .Q10H STA Administration Naloxone HCl 0.2 mg 09/05/20 02:38 Naloxone 0.4 Mg/Ml 1 Ml Vial IV Q2M PRN Opioid Reversal Intake and Output 09/04/20 09/05/20 09/05/20 22:59 06:59 14:59 Intake Total 0 Balance 0 Intake: Oral 0 Other: Voiding Method Toilet # Voids 1 Weight 72.575 kg 09/05/20 00:21 09/05/20 00:21 Assessment and Plan Assessment: Assessment #1 atrial flutter which seems to be typical and seems to be new to the patient #2 history of breast cancer and status post right breast surgery Plan #1 start the patient on oral AV kim laquita agents like beta blockers #2 she does not need to be on oral anticoagulation because her [id number] score is only 2. #3 we will obtain an echocardiogram with Doppler #4 follow-up with the patient Thank you for allowing us participate in her care
[2020-09-05] MEDS ORDERED: METOPROLOL SUCCINATE (ER) 25 MG TAB.ER.24H PO STA ×2 (09:39→12:07)
[2020-09-05] MEDS: HEPARIN SODIUM,PORCINE 5,000 UNIT/ML 1 ML VIAL SQ SCH ×2 (09:40→15:13)
[2020-09-05] MEDS ORDERED: LORazepam 0.5 MG TAB PO PRN (11:02)
--- NOTE | 2020-09-05 13:00 | ECHOF ---
Referral Reason:arrhythmia MEASUREMENTS -------- HEIGHT: 165.1 cm WEIGHT: 72.6 kg BP: RVIDd: 2.8 cm (< 3.3) IVSd: 0.9 cm (0.6 - 1.1) LVIDd: 4.1 cm (3.9 - 5.3) LVPWd: 1.1 cm (0.6 - 1.1) IVSs: 1.0 cm LVIDs: 3.7 cm LVPWs: 1.0 cm Ao Diam: 2.5 cm (2.0 - 3.7) AV Cusp: 1.9 cm (1.5 - 2.6) MV EXCURSION: 13.666 mm (> 18.000) MV EF SLOPE: 72 mm/s (70 - 150) EPSS: 0.4 cm MV E Jeremias: 0.44 m/s MV DecT: 228 ms MV A Jeremias: 0.98 m/s MV E/A Ratio: 0.45 AR PHT: 658 ms RAP: 5.00 mmHg RVSP: 24.09 mmHg FINDINGS -------- Sinus rhythm. This was a technically good study. The left ventricular size is normal. Overall left ventricular systolic function is mildly impaired with, an EF between 45 - 50 %. The right ventricle is normal in size. The left atrial size is normal. Normal LA size by volume 22+/-6 ml/m2. The right atrial size is normal. There is mild aortic regurgitation. Mild mitral regurgitation is present. Mild tricuspid regurgitation present. Right ventricular systolic pressure is normal at < 35 mmHg. There is no pulmonic regurgitation present. The aortic root size is normal. There is no pericardial effusion. CONCLUSIONS -------- 1. The left ventricular size is normal. 2. Overall left ventricular systolic function is mildly impaired with, an EF between 45 - 50 %. 3. The right ventricle is normal in size. 4. The left atrial size is normal. 5. Normal LA size by volume 22+/-6 ml/m2. 6. The right atrial size is normal. 7. There is mild aortic regurgitation. 8. Mild mitral regurgitation is present. 9. Mild tricuspid regurgitation present. 10. There is no pericardial effusion. DESIGN CHIEF: Larisa Oreilly RDCS
--- NOTE | 2020-09-05 13:04 | XR ---
EXAMINATION TYPE: XR chest 1V portable DATE OF EXAM: 09/05/2020 CLINICAL HISTORY: Difficulty breathing and tachycardia. History of breast cancer. TECHNIQUE: Single AP portable upright view of the chest is obtained. COMPARISON: Chest x-ray from earlier today. CTA chest April 25, 2020 FINDINGS: Background chronic parenchymal change without suspicious new focal airspace opacity, pleur al effusion, or pneumothorax seen bilaterally. Cardiac silhouette size stable and mildly enlarged. Os seous structures are demineralized. IMPRESSION: Chronic changes without acute pulmonary process. No significant change from prior studies .
--- NOTE | 2020-09-05 17:04 | P.PN ---
Progress Note - Text Progress Note Date: 09/05/20 75-year-old female with PMH of hypothyroidism, recently diagnosed breast cancer status post right-sided mastectomy presented to the ED for palpitations and shakiness. The patient subsequently activated EMS and was brought to the emergency room where the initial EKG revealed sinus tachycardia at 151 bpm with subsequent EKG showing tachycardia at 111 bpm. Chest CTA was negative for PE with chest x-ray unremarkable. Laboratory evaluation from the emergency room was reviewed and notably troponin was less than 0.012, proBNP 38, TSH 5.04, with free T4 1.31. Cardiology was consulted and recommended starting metoprolol for atrial flutter. Echocardiogram was obtained which showed EF 45-50% with no wall motion abnormalities. Patient continues to complain of shortness of breath and anxiousness. She denies any chest pain. She is in no acute distress. Atrial flutter Anxiety Subclinical hypothyroidism History of breast cancer We will try a trial of Ativan by mouth as needed. Continue Metoprolol and Telemetry monitoring. She will be monitored overnight with anticipated DC in 1-2 days.
[2020-09-06] MEDS: HEPARIN SODIUM,PORCINE 5,000 UNIT/ML 1 ML VIAL SQ SCH ×3 (00:50→16:22)
[2020-09-06] MEDS ORDERED: hydrOXYzine HCL 25 MG TAB PO PRN (08:06)
[2020-09-06 08:59] VITALS: RESP 16
[2020-09-06] MEDS ORDERED: METOPROLOL SUCCINATE (ER) 25 MG TAB.ER.24H PO SCH (09:00)
[2020-09-06] MEDS ORDERED: LETROZOLE 2.5 MG TAB PO SCH (09:00)
[2020-09-06] MEDS ORDERED: METOPROLOL SUCCINATE (ER) 25 MG TAB.ER.24H PO STA (10:47)
--- NOTE | 2020-09-06 13:41 | P.PN ---
Subjective Progress Note Date: 09/06/20 Principal diagnosis: palpitations Patient is a 75-year-old female with a history of hypothyroidism, recently diagnosed breast cancer, and anxiety who presented to the emergency department with complaints of palpitations. In the ER she underwent an extensive evaluation. Her initial heart rate was 150. Initially the EKG was read as sinus tachycardia at a rate of 151. CT PE protocol which was negative for pulmonary embolism. She was started on AV kim blocking agent and was admitted as cardiac observation. Cardiology was consulted. They reviewed the EKG and felt she had atrial flutter. They agreed with continued AV kim blocking agent and recommended aspirin as her CHADS-VASc is 2. However after being started on metoprolol 50 she continued to struggle with tachycardia 1 up and ambulating. She received another 50 of metoprolol on 09/06 and again was ambulated with a heart rate of 140-150. Patient seen and examined. She states yesterday she was feeling anxious but this has since resolved. Ativan helps. She does not want to be on this long- term. We discussed risks and benefits of Ativan and encouraged her to continue follow-up with [facility] in [place]. She denies any current chest pain, shortness of breath, or lightheaded or dizziness. She states that she was unable to feel that her heart rate went to 150 when she was up and going to the bathroom. General: Nontoxic, no distress, appears at stated age Derm: warm, dry Head: atraumatic, normocephalic, symmetric Eyes: EOMI, no lid lag, anicteric sclera Mouth: no lip lesion, mucus membranes moist Cardiovascular: S1S2 reg, no murmur, positive posterior tibial pulse bilateral, Lungs: CTA bilateral, no rhonchi, no rales , no accessory muscle use Abdominal: soft, nontender to palpation, no guarding, no appreciable organomegaly Ext: no gross muscle atrophy, trace edema, no contractures Neuro: CN II-XI grossly intact, no focal neuro deficits Psych: Alert, oriented, appropriate affect Atrial flutter if rapid ventricular response -Still not adequately controlled with ambulation -Metoprolol 50 given and patient continues to have tachycardia and ambulating -Await further cardiology recommendations -Patient will be on aspirin at discharge, CHADS VASc 2 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 She would likely be a candidate for treatment of subclinical hypothyroidism due to cardiomyopathy but treatment could worsen tachycardia Objective - Vital Signs Vital signs: Vital Signs Temp 98.0 F 09/06/20 08:21 Pulse 132 H 09/06/20 11:09 Resp 16 09/06/20 09:00 BP 110/70 09/06/20 11:09 Pulse Ox 93 L 09/06/20 08:21 Intake & Output 09/05/20 09/06/20 09/06/20 18:59 06:59 18:59 Intake Total 800 900 300 Balance 800 900 300 Intake: IV 400 Sodium Chloride 0.9% 1, 400 000 ml @ 100 mls/hr IV . Q10H STA Rx#:[id number] Oral 400 900 300 Other: Voiding Method Toilet Toilet Toilet # Voids 2 1 - Labs CBC & Chem 7: 09/05/20 00:21 09/05/20 00:21
[2020-09-06 15:35] VITALS: BP 105/71; PULSE 80; TEMP 98.4
--- NOTE | 2020-09-06 18:07 | P.PN ---
Subjective Progress Note Date: 09/06/20 HISTORY OF PRESENTING ILLNESS This is a very pleasant 75-year-old female patient with no significant cardiac or vascular surgery but history of breast cancer who underwent right breast surgery in May 2020, presented to the hospital complaining of heart racing. She was in her usual state of health until yesterday when she was at home and she started feeling heart racing without any dizziness or lightheadedness and without any syncope. No symptoms of chest pain or chest discomfort. She checked her heart rate and that was elevated around 114 bpm and because of that she decided to come to the emergency department. In the emergency department she was given IV beta laquita and that slow her heart rate temporarily. She underwent 2 EKGs. Initial EKG showed sinus rhythm with sinus tachycardia but the subsequent EKG showed what it seems to be an atrial flutter. The patient is not aware of any prior history of atrial fibrillation or atrial flutter. She is not on any beta laquita or calcium channel laquita as an outpatient and she is not on any oral anticoagulation. No history of coronary artery disease and no history of congestive heart failure and no history of diabetes nor any vascular disease in the past. No history of TIA or stroke. When she was seen and examined this morning she continues to be tachycardic with a resting heart rate above 100 beats per minutes. I am in process of obtaining another EKG at this point. Beside that she underwent a TSH but that came in to be slightly elevated but her free T4 seems to be within normal limits. The rest of her blood work overall came in to be unremarkable. 09/06/2020 Patient seen and examined. Patient overall states she is feeling well. She admits that initially she checked her pulse because she was feeling somewhat short of breath however feels well walking the halls this afternoon. She has had sinus tachycardia with heart rates in the 120-140 with mild exertion walking. She denies any chest pain, shortness breath, lightheadedness during these episodes and states she feels for the most part back to normal. Telemetry during these episodes reveals sinus rhythm and no significant arrhythmia. Echocardiogram showed ejection fraction 45-50% without significant valvular disease. PHYSICAL EXAMINATION Blood pressure 105/71 heart rate 80 afebrile and maintaining oxygen saturation on Room air. CONSTITUTIONAL: No apparent distress. HEENT: Head is normocephalic. Pupils are equal, round. Sclerae anicteric. Mucous membranes of the mouth are moist. No JVD. No carotid bruit. CHEST EXAMINATION: Lungs are clear to auscultation. No chest wall tenderness is noted on palpation or with deep breathing. HEART EXAMINATION: Regular rate and rhythm. S1, S2 heard. No murmurs, gallops or rub. ABDOMEN: Soft, nontender. Positive bowel sounds. EXTREMITIES: 2+ peripheral pulses, no lower extremity edema and no calf tenderness. NEUROLOGIC EXAMINATION: Patient is awake, alert and oriented x3. 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 Patient with asymptomatic sinus tachycardia with exertion. Suspect very poor exercise tolerance however would not treat sinus tachycardia with exertion with medications especially as she is asymptomatic. Prior CTA showed no significant PE or abnormalities. Patient does not appear dehydrated and no other significant reasons for sinus tachycardia. Toprol was increased to 50 mg daily. Monitor response. Patient appears stable for discharge from a cardiac standpoint. Objective - Vital Signs Vital signs: Vital Signs Temp 98.4 F 09/06/20 15:35 Pulse 80 09/06/20 15:35 Resp 16 09/06/20 15:35 BP 105/71 09/06/20 15:35 Pulse Ox 94 L 09/06/20 15:35 Intake & Output 09/05/20 09/06/20 09/06/20 18:59 06:59 18:59 Intake Total 800 900 650 Balance 800 900 650 Intake: IV 400 Sodium Chloride 0.9% 1, 400 000 ml @ 100 mls/hr IV . Q10H STA Rx#:[id number] Oral 400 900 650 Other: Voiding Method Toilet Toilet Toilet # Voids 2 1 3 - Labs CBC & Chem 7: 09/05/20 00:21 09/05/20 00:21
--- NOTE | 2020-09-06 18:46 | P.DS ---
Providers Date of admission: 09/06/20 13:18 Expected date of discharge: 09/06/20 Attending physician: Pam Boles MD Consults: 09/05/20 02:39 Consult Physician Urgent Consulting Provider: [facility] Consult Reason/Comments: tachycardia Do you want consulting provider notified?: Yes, Notify in am Primary care physician: Stated None Hospital Course: Discharge Diagnosis: SVT, Possible Paroxysmal Atrial flutter with RVR Exercise induced tachycardia Cardiomyopathy with EF 45-50% newly discovered Subclinical hypothyroidism Hospital Course: Patient is a 75-year-old female with a history of hypothyroidism, recently diagnosed breast cancer, and anxiety who presented to the emergency department with complaints of palpitations. In the ER she underwent an extensive evaluation. Her initial heart rate was 150. Initially the EKG was read as sinus tachycardia at a rate of 151. CT PE protocol which was negative for pulmonary embolism. She was started on AV kim blocking agent and was admitted as cardiac observation. Cardiology was consulted. They reviewed the EKG and felt she had atrial flutter. They agreed with continued AV kim blocking agent and recommended aspirin as her CHADS-VASc is 2. However after being started on metoprolol 50 she continued to struggle with tachycardia 1 up and ambulating. She received another 50 of metoprolol on 09/06 and again was ambulated with a heart rate of 140-150. She was seen by cardiology who reviewed telemetry and determined that the patient had sinus tachycardia and did not require increased AV kim blocking agents. She was determined stable for discharge home and will follow-up with Dr. Avalos her primary equipment operator intermodal yard in the office. Repeat TSH in [address] Be her PCP. For physical exam see progress note same date A total of 25 minutes of time were spent preparing this complex discharge summary . Patient Condition at Discharge: Stable Plan - Discharge Summary Discharge Rx Participant: No New Discharge Prescriptions: New Metoprolol Succinate (ER) [Toprol XL] 25 mg PO DAILY #30 tab Continue Multivitamin [Multivitamins Adult Gummies] 1 each PO QAM Paliperidone IM [Invega Sustenna] 117 mg IM Q30D Letrozole 2.5 mg PO DAILY Discharge Medication List Multivitamin [Multivitamins Adult Gummies] 1 each PO QAM 03/04/20 [History] Paliperidone IM [Invega Sustenna] 117 mg IM Q30D 04/17/20 [History] Letrozole 2.5 mg PO DAILY 09/05/20 [History] Metoprolol Succinate (ER) [Toprol XL] 25 mg PO DAILY #30 tab 09/06/20 [Rx] Follow up Appointment(s)/Referral(s): Sky Be DO [REFERRING] - 1 Week None,Stated [Primary Care Provider] - 1-2 days Timmy Avalos MD [STAFF PHYSICIAN] - 1 Week Discharge Disposition: HOME SELF-CARE
[2020-09-07] MEDS ORDERED: METOPROLOL SUCCINATE (ER) 50 MG TAB.ER.24H PO SCH (09:00)
== END 2020-09-06 22:50 | disposition home or self-care (01) | DRG 309 ==
LOC: EC 23:37 → 3NCARDOBS 09-05 02:38 → OBSVTOIN 09-06 13:18
PROVIDERS: ADMIT Internal Medicine; ATTEND Internal Medicine
DX: I47.1 Supraventricular tachycardia (principal); I42.9 Cardiomyopathy, unspecified; I48.3 Typical atrial flutter; C50.911 Malignant neoplasm of unspecified site of right female breast; E03.9 Hypothyroidism, unspecified; F41.9 Anxiety disorder, unspecified; E53.9 Vitamin B deficiency, unspecified; Z79.811 Long term (current) use of aromatase inhibitors; Z79.899 Other long term (current) drug therapy; Z88.5 Allergy status to narcotic agent; Z85.41 Personal history of malignant neoplasm of cervix uteri; Z87.891 Personal history of nicotine dependence; Z90.710 Acquired absence of both cervix and uterus; Z90.49 Acquired absence of other specified parts of digestive tract; Z87.19 Personal history of other diseases of the digestive system; Z90.11 Acquired absence of right breast and nipple; Z80.0 Family history of malignant neoplasm of digestive organs; Z80.1 Family history of malignant neoplasm of trachea, bronchus and lung
CPT/HCPCS: 36415; 71045; 71046; 71275; 80053; 83735; 83880; 84439; 84443; 84484; 85025; 85610; 85730; 93005; 93306; 96361; 96374; 99285

== ENCOUNTER → 2020-09-19 | Outpatient (CLI) | payer MEDICARE ==
[2020-09-19 14:03] VITALS: BP 106/75; PULSE 79; RESP 18; TEMP 97.6
--- NOTE | 2020-09-19 14:19 | P.PN ---
Progress Note - Text Progress Note Date: 09/19/20 Stephanie is a 75-year-old white female who underwent a [place] [id number] [place] [id number]. At that time she did have some ecchymosis in the medial aspect of the right breast with no evidence of infection or hematoma. She subsequently was seen by Dr. Nelson and he noticed some erythema and she was started on Keflex. She was seen here on 9420 and noted to have a seroma which was drained, and the wound opened spontaneously. At that time there was an area of erythema and she was given a prescription for amoxicillin. Cultures were obtained which showed no growth, however moderate PMNs were seen. She continues packing at this time the incision is almost completely closed. Patient was seen in ER recently with rapid pulse, she was admitted and is being followed by cardiology. Physical examination: Lungs: Clear Heart: S1S2 noted, Right breast lumpectomy site packing changed, cavity 0.8cm by 0.5cm Erythema decreased Impression: 1. Patient status post drainage of seroma right breast; wound packing changed 2. Decreased erythema 3. No evidence of infection Plan: 1. Continue present wound care 2. Follow-up with radiation and medical oncology 3. Follow-up in 4 weeks 4. contiinue to follow with cardiology
== END | disposition home or self-care (01) ==
LOC: WWCWWP 13:50
PROVIDERS: ATTEND Surgery
DX: Z53.9 Procedure and treatment not carried out, unspecified reason (principal)

== ENCOUNTER → 2020-10-10 | Outpatient (CLI) | payer MEDICARE ==
[2020-10-10 15:29] LABS: HCT 47.7 % (34.0-46.0); HGB 16.1 gm/dL (11.4-16.0); MCH 31.1 pg (25.0-35.0); MCHC 33.8 g/dL (31.0-37.0); MCV 91.9 fL (80.0-100.0); Mean Platelet Volume 6.3; Platelet Count 267 k/uL (150-450); RBC 5.18 m/uL (3.80-5.40); RDW 12.6 % (11.5-15.5); WBC 7.8 k/uL (3.8-10.6)
[2020-10-10 15:39] LABS: African American GFR (CKD) >90 (>60 ml/min/1.73 sqM); Anion Gap 8 mmol/L; Blood Urea Nitrogen 8 mg/dL (7-17); Carbon Dioxide 28 mmol/L (22-30); Chloride 103 mmol/L (98-107); Magnesium 1.9 mg/dL (1.6-2.3); Non-African American GFR(CKD) >90 (>60 ml/min/1.73 sqM); Potassium 3.8 mmol/L (3.5-5.1); Sodium 139 mmol/L (137-145)
== END | disposition home or self-care (01) ==
LOC: LABWHC1 15:09
PROVIDERS: ATTEND Internal Medicine Clinical Cardiac Electrophysiology
DX: Z01.818 Encounter for other preprocedural examination (principal); I47.1 Supraventricular tachycardia
CPT/HCPCS: 36415; 80051; 82565; 83735; 84520; 85027

== ENCOUNTER 2020-10-16 12:28 | Day surgery (SDC) | payer MEDICARE ==
[2020-10-14 08:31] VITALS: BMI 26.6
[~2020-10-16 12:28] MED LIST changes: -DEXAMETHASONE SOD PHOSPHATE 10 MG/ML 1 ML VIAL IV ONE; -HEPARIN SODIUM,PORCINE 5,000 UNIT/ML 1 ML VIAL SQ ONE; -HYDROmorphone 0.5 MG/0.5 ML SYRINGE IVP PRN; -LACTATED RINGERS 1,000 ML IV SCH; -LIDOCAINE 1% (10MG/ML) FOR IV START INTRADERMA PRN; -MIDAZOLAM 2 MG/2 ML VIAL IV PRN; -ONDANSETRON 4 MG/2 ML VIAL IVP ONE; -Pre Op ABX Message 1 EACH MISC MISCELLANE ONE; +SODIUM CHLORIDE 0.9% 1,000 ML IV SCH
[2020-10-16 13:05] VITALS: BP 140/82; PULSE 132; RESP 16; TEMP 98.3
== END 2020-10-16 16:20 | disposition home or self-care (01) ==
LOC: CATHEP 12:28
PROVIDERS: ATTEND Internal Medicine Clinical Cardiac Electrophysiology
DX: R00.0 Tachycardia, unspecified (principal); Z53.9 Procedure and treatment not carried out, unspecified reason

== ENCOUNTER → 2020-10-30 | Outpatient (CLI) | payer MEDICARE ==
[2020-10-30 15:58] VITALS: BP 121/75; PULSE 80; RESP 20; TEMP 97.7
--- NOTE | 2020-10-30 16:30 | P.PN ---
Subjective Progress Note Date: 10/30/20 Principal diagnosis: [id number]+Pr+Her2-G2 right breast biopsy Stephanie is a 75-year-old white female who underwent a right breast lumpectomy and sentinel node biopsy on for a [id number]+Pr+Her2-G2 lesion. She was seen postop on . At that time she did have some ecchymosis in the medial aspect of the right breast with no evidence of infection or hematoma. She subsequently was seen by Dr. Nelson and he noticed some erythema and she was started on Keflex. She was seen here on 9419 and noted to have a seroma which was drained, and the wound opened spontaneously. At that time there was an area of erythema and she was given a prescription for amoxicillin. Cultures were obtained which showed no growth, however moderate PMNs were seen. She continues packing at this time the incision is almost completely closed. Patient was seen in ER recently with rapid pulse, she was admitted and is being followed by cardiology. She is scheduled for an ablation on November 10. She is going to have radiation after she has a cardiac ablation will start Femara after this. Family history: Mother: Colon cancer Wall history: Menarche: 14 T1 P1, breast-fed, now age of of her first child 27 Menopause: Hysterectomy at 40 (this was done for cervical cancer) control pills: Negative Hormones: Retrobulbar. Past surgical history: Hysterectomy Appendectomy Right breast lumpectomy sentinel node biopsy Medical history: Urinary urgency Cardiac arrhythmia patient is going to have an ablation performed Invega to sleep Social history: Smoke: Negative Alcohol: Negative Drugs: Negative Review of systems: Constitutional: Negative HEENT: Negative Breasts: As per HPI Cardiovascular rapid heartbeat patient is scheduled for ablation Respiratory: Negative GI: Negative Menstruation: Status post hysterectomy Musculoskeletal: Negative Neurologic: Negative Psychiatric has difficulty sleeping treated with medication used for schizophrenia Endocrine: Reports weight change Objective - Vital Signs Vital signs: Vital Signs Temp 97.7 F 10/30/20 15:52 Pulse 80 10/30/20 15:52 Resp 20 10/30/20 15:52 BP 121/75 10/30/20 15:52 Pulse Ox 94 L 10/30/20 15:52 Intake & Output 10/29/20 10/30/20 10/30/20 18:59 06:59 18:59 Weight 72.575 kg - Exam BMI 25.8 - Constitutional General appearance: Present: average body habitus - EENT Eyes: Present: EOMI ENT: Present: hearing grossly normal - Neck Neck: Present: normal ROM - Respiratory Respiratory: bilateral: CTA - Cardiovascular Rhythm: regular Heart sounds: normal: S1, S2 - Gastrointestinal General gastrointestinal: Present: normal bowel sounds, soft - Musculoskeletal Musculoskeletal: Present: gait normal - Psychiatric Psychiatric: Present: A&O x's 3, appropriate affect - Additional findings Additional findings: Breast exam: BRA: 36B inspection: Right breast. Scar from prior surgery, left breast ptosis grade 2/3 Palpation: Right breast: Scar from prior surgery otherwise no dominant masses or nodules of concern fibrocystic changes Right axilla: No adenopathy of concern Left breast: Fibrocystic changes, no dominant masses or nodules of concern Left axilla: No adenopathy of concern Assessment and Plan Assessment: Impression: 1. Patient status post right breast lumpectomy and sentinel node biopsy for stage IA right breast cancer on 06-24-20 2. Patient does open it is now healed 3. Patient is in need of cardiac ablation for rapid heartbeat has not had radiation therapy and pelvic cardiac ablation is performed 4. 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 Cardiac ablation 2. Radiation therapy of the right breast following cardiac ablation 3. From our as per medical oncology they have not recommended chemotherapy 4. Patient is due for bilateral mammogram 5. Her last bilateral mammogram was in December 2019 and will recommend left breast mammogram December 2020, breast mammogram to follow completion of radiation therapy CC: DR. Be encounter 25 minutes, > 50% of time on planning and counselling
== END | disposition home or self-care (01) ==
LOC: WWCWWP 15:25
PROVIDERS: ATTEND Surgery
DX: Z53.9 Procedure and treatment not carried out, unspecified reason (principal)

== ENCOUNTER 2020-11-10 10:23 | Day surgery (SDC) | payer MEDICARE ==
[2020-11-07 10:07] VITALS: BMI 26.6
[2020-11-10 11:14] LABS: Basophils # (A) 0.1 k/uL (0-0.2); Basophils % (A) 1 %; Eosinophils # (A) 0.1 k/uL (0-0.7); Eosinophils % (A) 1 %; HCT 50.7 % (34.0-46.0); HGB 17.2 gm/dL (11.4-16.0); Lymphocytes # (A) 2.3 k/uL (1.0-4.8); Lymphocytes % (A) 26 %; MCH 30.9 pg (25.0-35.0); MCHC 33.8 g/dL (31.0-37.0); MCV 91.3 fL (80.0-100.0); Mean Platelet Volume 6.5; Monocytes # (A) 0.7 k/uL (0-1.0); Monocytes % (A) 8 %; Neutrophils # (A) 5.5 k/uL (1.3-7.7); Neutrophils % (A) 63 %; Platelet Count 312 k/uL (150-450); RBC 5.55 m/uL (3.80-5.40); RDW 12.8 % (11.5-15.5); WBC 8.7 k/uL (3.8-10.6)
[2020-11-10] MEDS: SODIUM CHLORIDE 0.9% 1,000 ML IV SCH (11:16)
[2020-11-10 11:29] LABS: Calcium 9.7 mg/dL (8.4-10.2)
[2020-11-10 11:33] LABS: Potassium 4.8 mmol/L (3.5-5.1)
[2020-11-10] MEDS ORDERED: LIDOCAINE 1% INJ 10MG/ML (20 ML MDV) ONE (14:56)
[2020-11-10] MEDS ORDERED: HEPARIN SODIUM,PORCINE 5,000 UNIT/ML 1 ML VIAL ONE (15:00)
[2020-11-10] MEDS ORDERED: MIDAZOLAM 2 MG/2 ML VIAL ONE (15:00)
[2020-11-10] MEDS ORDERED: FUROSEMIDE 10 MG/ML 2 ML VIAL ONE (15:00)
[2020-11-10] MEDS ORDERED: PROPOFOL 10 MG/ML 20 ML VIAL IV ONE (15:00)
[2020-11-10] MEDS ORDERED: KETAMINE 10 MG/ML 20 ML VIAL ONE (15:00)
[2020-11-10] MEDS ORDERED: fentaNYL (PF) 50 MCG/ML 2 ML AMP ONE (15:00)
--- NOTE | 2020-11-10 15:35 | P.HPCAR ---
History of Present Illness This is Dr. Krishna dictating an H/P on this patient The patient was interviewed and examined IMPRESSION / ASSESSMENT: Recurrent SVT, long RP tachycardia Recurrent discomfort in the chest. Last episode was a few days back and lasted for about 5 hours During these episodes she's had EKG which confirmed SVT, long RP with inverted P waves History of breast cancer status post surgery PLAN: Metoprolol has been held for 2-3 days. We will proceed with a diagnostic EP study and possible efficacy ablation HPI Patient complains of recurrent palpitations She complains of recurrent discomfort in the chest and abdomen No loss of consciousness ROS: No fever chills or rigors, no cough, phlegm or expectoration, no nausea, vomiting or diarrhea, no hematuria, dysuria, no musculoskeletal complaints, no strokes or seizures, no skin lesions. EXAMINATION: Afebrile blood pressure 140/76 mmHg pulse rate 77 beats a minute Breath sounds are reduced bilaterally no rhonchi no crackles Right mastectomy noted Normal heart sounds normal S1 normal S2 Abdomen soft nontender No extremity edema REVIEW OF LABS, ECG & MEDICAL DATA Hemoglobin 17.2, white count normal Sodium 139, potassium 4.8, BUN 11 and creatinine 0.76 Physical Exam Vitals: Vital Signs Temp Pulse Resp BP Pulse Ox 11/10/20 11:14 98 F 114 H 18 140/76 96 Intake and Output 11/10/20 11/10/20 11/10/20 06:59 14:59 22:59 Intake Total 20 Balance 20 Intake: IV 20 Past Medical History Past Medical History: Cancer, Thyroid Disorder Additional Past Medical History / Comment(s): vit b deficiency, Hx of rx for thyroid., stage 3 cervical cancer with surgery- (1983)., right breast cancer with lumpectomy 05/2020-waiting to receive radiation tx., See Cardiology H & P. History of Any Multi-Drug Resistant Organisms: None Reported Past Surgical History: Appendectomy, Breast Surgery, Hysterectomy Additional Past Surgical History / Comment(s): RIGHT BREAST LUMPECTOMY THEN FLUID REMOVAL Past Anesthesia/Blood Transfusion Reactions: No Reported Reaction Past Psychological History: No Psychological Hx Reported Smoking Status: Former smoker Past Alcohol Use History: None Reported Additional Past Alcohol Use History / Comment(s): QUIT SMOKING 2015, STARTED AGE 36., SMOKED 1 PACK EVERY 2 WEEKS. Past Drug Use History: None Reported - Past Family History Mother Family Medical History: Cancer Additional Family Medical History / Comment(s): colon cancer Father Family Medical History: Cancer Additional Family Medical History / Comment(s): lung cancer Physical Examination Vital Signs Temp Pulse Resp BP Pulse Ox 11/10/20 11:14 98 F 114 H 18 140/76 96 Intake and Output 11/10/20 11/10/20 11/10/20 06:59 14:59 22:59 Intake Total 20 Balance 20 Intake: IV 20 Results 11/10/20 10:45 11/10/20 10:45 CBC 11/10/20 Range/Units 10:45 WBC 8.7 (3.8-10.6) k/uL RBC 5.55 H (3.80-5.40) m/uL Hgb 17.2 H (11.4-16.0) gm/dL Hct 50.7 H (34.0-46.0) % Plt Count 312 (150-450) k/uL Comprehensive Metabolic Panel 11/10/20 Range/Units 10:45 Sodium 139 (137-145) mmol/L Potassium 4.8 (3.5-5.1) mmol/L Chloride 106 (98-107) mmol/L Carbon Dioxide 23 (22-30) mmol/L BUN 11 (7-17) mg/dL Creatinine 0.76 (0.52-1.04) mg/dL Glucose 114 H (74-99) mg/dL Calcium 9.7 (8.4-10.2) mg/dL Current Medications Generic Name Dose Route Start Last Admin Trade Name Freq PRN Reason Stop Dose Admin Sodium Chloride 1,000 mls @ 20 mls/hr 11/10/20 06:02 11/10/20 11:16 Saline 0.9% IV 20 mls .Q24H CK Administration Lactated Ringer's 1,000 mls @ 20 mls/hr 11/10/20 06:02 Lactated Ringers IV .Q24H CK Intake and Output 11/10/20 11/10/20 11/10/20 06:59 14:59 22:59 Intake Total 20 Balance 20 Intake: IV 20 11/10/20 10:45 11/10/20 10:45
[2020-11-10] MEDS ORDERED: LIDOCAINE 1% INJ 10MG/ML (20 ML MDV) SQ ONE (15:46)
[2020-11-10] MEDS ORDERED: HEPARIN SODIUM (1,000 UNIT/ML) 1,000 UNIT in SODIUM CHLORIDE 0.9% 1,000 ML IRRIGATION ONE (16:40)
[2020-11-10] MEDS ORDERED: SODIUM CHLORIDE 0.9% 1,000 ML IV ONE (19:02)
[2020-11-10] MEDS ORDERED: HYDROcodone/APAP 5-325MG 1 EACH TAB PO PRN (19:45)
[2020-11-10] MEDS ORDERED: ACETAMINOPHEN TAB 325 MG TAB PO PRN (19:45)
[2020-11-10] MEDS ORDERED: ACETAMINOPHEN IV (For NPO) 1,000 MG in EMPTY BAG 1 BAG IVPB ONE (19:45)
--- NOTE | 2020-11-10 19:59 | P.EPPROC ---
- EP Procedure Note Electrophysiology Procedure Note: Diagnosis Focal atrial tachycardia. PeriTricuspid, 6 o'clock position in the cavo tricuspid isthmus Typical atrial flutter Focal atrial tachycardia, anterior inferior and septal to the office of the coronary sinus, All 3 arrhythmias and successfully ablated and rendered noninducible Following this no other arrhythmias were induced
--- NOTE | 2020-11-10 20:03 | P.PRLE ---
RE: Stephanie Chowdhury Dear Sky Brown underwent a diagnostic EP study for evaluation and management of SVT which is quite symptomatic and associated chest discomfort. She was having breakthrough episodes on beta blockers and A detailed diagnostic EP study and mapping procedure revealed 3 arrhythmias Focal atrial tachycardia. PeriTricuspid, 6 o'clock position in the cavo tricusp id isthmus Typical atrial flutter Focal atrial tachycardia, anterior inferior and septal to the office of the coronary sinus, All 3 arrhythmias and successfully ablated and rendered noninducible Following this no other arrhythmias were induced I have stopped beta blockers for now and she will follow with you and Dr. Maynard as before Thank you for entrusting me with the care of the patient Warm regards Sincerely Maco Krishna
--- NOTE | 2020-11-10 20:38 | CE ---
CARDIAC ELECTROPHYSIOLOGY REPORT This is a 75-year-old female with recurrent palpitations associated with chest discomfort. We have documented ECG of SVT, long RP tachycardia. RESULT: 1. Successful ablation of a focal atrial tachycardia, mame tricuspid, 6 o'clock position. 2. Successful focal ablation of an atrial tachycardia originating anteroinferiorly, septally below the os of the coronary sinus. 3. Typical atrial flutter ablation. Patient tolerated the procedure well without any acute complications. DETAILS Patient was brought to the EP lab in a fasting state. Written informed consent was obtained prior to the procedure. Left shoulder area was prepped and draped as per protocol. Lidocaine 1% was used for local anesthesia. Venous sheaths were placed in the right and left femoral veins, and via these diagnostic mapping and ablation catheters were placed. Catheters were placed in the high right atrium, coronary sinus, His bundle and RV. Mapping and ablation catheters were placed. Intracardiac echo catheter was placed. Sinus cycle length 671 milliseconds, TN interval 163 milliseconds, QRS 91 milliseconds, QT 386 milliseconds. AH interval 50 milliseconds, HV interval 42 milliseconds. Sinus node recovery times at 600 and 500 milliseconds were 988 and 905 milliseconds. Corresponding corrected sinus node recovery times were within normal limits. Varying high right atrial pacing tachycardia was very easily inducible. This was a sustained tachycardia, long RP with negatively oriented P waves in lead V1 and negatively or deep negative in the inferior leads. Pacing maneuvers were performed. There was subtle cycle length variation noted and the atrial signals drove the ventricular signals. A VAAV response was noted consistent with atrial tachycardia. During His bundle pacing, silver response was noted. There was no evidence for slow pathway conduction, no evidence for antegrade accessory pathway conduction. No evidence for retrograde accessory pathway conduction. Silver response noted with His bundle pacing. Three-dimensional electroanatomic mapping was performed using the mapping and ablation tube depatcher-tip catheter. The first tachycardia that was induced with this morphology originated close to the tricuspid anulus in the cavotricuspid isthmus, almost 6 o'clock position. The right atrium and the coronary sinus were mapped in detail and the earliest site of activation was sought. Good unipolar electrograms were noted and RF ablation with an irrigated- tip catheter with 35 trevino of power was used and good contact force. This resulted in elimination of this tachycardia. However, a second tachycardia was very easily inducible consistent with atrial flutter. A long sheath was then placed and an RF line of block was made in the cavotricuspid isthmus close to the focal atrial tachycardia ablation. The focal atrial tachycardia ablation had resulted in lesions in a portion of the isthmus close to the tricuspid anulus. Intracardiac echocardiography was also performed. The patient had a very short isthmus, but heavily trabeculated with crevices and pouches. Nevertheless, RF ablation was applied along the cavotricuspid isthmus and a complete line of block was made. This line was mapped during CS pacing as well as during the third atrial tachycardia to confirm that there was complete bidirectional block. Once the flutter line was completed, there was a third atrial tachycardia with negatively oriented P-waves in the inferior leads and delayed positive electrograms in V1 that looked similar to atrial flutter but did not meet the cycle length when the right atrium was mapped multiple times with this. However, with detailed mapping this turned out to be a third tachycardia. This was a focal tachycardia anterior and inferior to the os of the coronary sinus (inferior to the os of the coronary sinus septally). Good unipolar electrograms were noted, and with mechanical pressure an EP study with atrial pacing maneuvers did not induce tachycardia. RF ablation was applied at this site, and thereafter this tachycardia could not be induced. Following three ablations, no tachycardia could be induced. Ventricular pacing was performed. No tachycardia could be induced. All catheters were then removed and patient was transferred back to telemetry. This was a very long procedure since there were three atrial tachycardias that had to be mapped. Multiple right atrial coronary sinus maps were made during pacing maneuvers as well as with activation mapping. The second and the third tachycardia had a very similar morphology and looked like atrial flutter. RF ablation was performed for atrial flutter, but thereafter there was another tachycardia that was focal, inferior and septal to the coronary sinus os. Multiple 3D electroanatomic maps were made to differentiate between the second and third arrhythmias. The patient tolerated the procedure well without any acute complications. At the end of the procedure intracardiac echo revealed normal LV function; no pericardial effusion. PLAN: Stop metoprolol. Observe overnight Procedures performed Comprehensive diagnostic EP study with attempted arrhythmia induction CS pacing and recording 3-D mapping Radiofrequency ablation, atrial (atrial flutter) Radiofrequency ablation focal inducible arrhythmia #1 Radiofrequency ablation focal inducible arrhythmia #2 Intracardiac echo [id number] / IJN: [id number] / MTDD
[2020-11-11] MEDS: LACTATED RINGERS 1,000 ML IV SCH ×2 (00:23→06:16)
[2020-11-11] MEDS: SODIUM CHLORIDE 0.9% 1,000 ML IV SCH (06:17)
[2020-11-11 09:08] VITALS: RESP 16; TEMP 98.1
[2020-11-11 09:16] VITALS: BP 132/70
[2020-11-11 09:31] VITALS: PULSE 110
--- NOTE | 2020-11-11 09:31 | P.DS ---
Providers Attending physician: Maco Krishna Primary care physician: Stated None Hospital Course: Patient is doing well. She did have an episode where she felt her heart was beating faster but this was sinus tachycardia. This was not atrial tachycardia. I reviewed her telemetry strips line she denies any dizziness no chest discomfort no shortness of breath she is sitting comfortably in bed Groins healing well there is no tenderness no swelling Breath sounds are clear no rhonchi no crackles Heart sounds S1 and S2 normal no murmurs or gallops or rub Abdomen soft Extremity is warm no edema No JVD Impression Ablation of a focal right atrial atrial tachycardia 6 o'clock position. Tri cuspid,, within the cavo tricuspid isthmus area Typical atrial flutter ablation, short isthmus for thick muscle/trabeculations, multiple small pouches within the isthmus Ablation of a second focal right atrial atrial tachycardia inferior to the coronary sinus, inferior septal RA No other inducible arrhythmias thereafter Plan Stop metoprolol Ambulate in the hallways Discharge home today if hemodynamically stable Follow-up with Dr. Maynard within a week Plan - Discharge Summary Discharge Rx Participant: Yes New Discharge Prescriptions: Discontinued Metoprolol Succinate (ER) [Toprol Xl] 50 mg PO BID Follow up Appointment(s)/Referral(s): Timmy Avalos MD [STAFF PHYSICIAN] - 1 Week Activity/Diet/Wound Care/Special Instructions: Post EP study - Ablation instructions 1. Keep access sites dry for 2 days. 2. No heavy lifting or straining for 2 days. 3. Avoid bending the hips repeatedly for 2 days. 4. You may go up and down stairs slowly Call if the following is noted 1. Bleeding, increasing swelling or pain at the access sites. 2. Increasing chest discomfort, especially upon taking a deep breath. 3. Increasing shortness of breath, at rest or with exertion. 4. Undue cough / phlegm 5. Difficulty or pain while swallowing. 6. Pain or change in color in the extremities. 7. Fever, chills, rigors. 8. Increasing headache or neurologic symptoms. 9. Dizziness, fainting, palpitations Stop metoprolol Discharge Disposition: HOME SELF-CARE
== END 2020-11-11 11:05 | disposition home or self-care (01) ==
LOC: CATHEP 10:23 → 1SOBS 19:38 → CATHEP 11-11 11:05
PROVIDERS: ATTEND Internal Medicine Clinical Cardiac Electrophysiology
DX: I47.1 Supraventricular tachycardia (principal); I48.3 Typical atrial flutter; E07.9 Disorder of thyroid, unspecified; Z90.11 Acquired absence of right breast and nipple; Z85.3 Personal history of malignant neoplasm of breast; Z85.41 Personal history of malignant neoplasm of cervix uteri; Z87.891 Personal history of nicotine dependence; Z90.710 Acquired absence of both cervix and uterus; Z90.49 Acquired absence of other specified parts of digestive tract; Z98.890 Other specified postprocedural states; Z80.0 Family history of malignant neoplasm of digestive organs; Z80.1 Family history of malignant neoplasm of trachea, bronchus and lung
CPT/HCPCS: 93662; 93613; 93653; 80048; 85025; C1894; C1769 ×2; C1730 ×3; C1759; C1893; C1732; J2001; J1644

== ENCOUNTER → 2021-08-20 | Outpatient (CLI) | payer MEDICARE ==
[2021-08-20 15:12] VITALS: BP 109/76; PULSE 109; RESP 18
[2021-08-20 15:13] VITALS: TEMP 97.9
--- NOTE | 2021-08-20 15:21 | P.PN ---
Subjective Progress Note Date: 08/20/21 Principal diagnosis: right breast cancer invasive ductal cancer: [id number]+Pr+Her2-G2 stage IB right breast cancer This is a 76-year-old white female status post bilateral mammogram performed on 05-25-21. On that evaluation she was noted to have a 10 x 5 mm lesion in the right breast approximately 5 cm from the nipple. The patient did not have any lesions of concern noted in the left breast. She [place] [id number] which revealed a 22 x 20 mm lesion which was considered of concern in the right breast and an ultrasound-guided core biopsy was recommended. Her last mammogram prior to this one was about ten years ago. Patient had recently lost approximately 30 pounds and after that she felt some nodularity in her breast. Additionally she had some stabbing pains in the right breast in the upper-outer quadrant region. For this reason she sought radiographic evaluation. She had not had any trauma, infection, or prior surgery on either breast. She had an ultrasound core biopsy on 04-17-20. Pathology from this revealed a grade 2 invasive ductal carcinoma. She underwent a right breast [place] [id number]. This was for a T2 N0 M0 ER/OH positive HER-2 negative G2 lesion. The patient post procedure did develop a seroma which drained and the wound opened spontaneously. Cultures were obtained which showed no growth. She completed 5 cycles of radiation therapy. [place] from Dr. [place] [id number]. She is presently on Femara. She is tolerating this well. She is not complaining of any new lumps masses or nodules in either breast. Family History: 1. mother: colon Hormonal History: menarche: 14 , breast fed: no, age at : 27 menopause: hysterectomy at 40, left ovaries for cervical cancer BCP; none hormones: patch for about 1 year Past Surgical History: 1. hysterectomy 2. appendectomy Medical History: Invega to help sleep urinary urgency scheduled to have a colonoscopy done next week Social History: smoke: none/ stopped several years ago alcohol: none drugs: none - Constitutional Constitutional: Denies chills, Denies fever - EENT Eyes: denies blurred vision, denies pain Ears: deny: decreased hearing, tinnitus Ears, nose, mouth and throat: Denies headache, Denies sore throat - Breasts Breasts: bilateral: as per HPI - Cardiovascular Cardiovascular: Denies chest pain, Denies shortness of breath - Respiratory Respiratory: Denies cough - Gastrointestinal Gastrointestinal: Denies abdominal pain, Denies diarrhea, Denies nausea, Denies vomiting - Genitourinary (Female) Genitourinary: Reports urgency, Denies dysuria, Denies hematuria - Menstruation Menstruation: Reports post hysterectomy - Musculoskeletal Musculoskeletal: Denies myalgias - Integumentary Comment: rash on back resolving Integumentary: Reports rash, Denies pruritus - Neurological Neurological: Denies numbness, Denies weakness - Psychiatric Comment: difficulty sleeping treated with a medication used for schizophrenia - Endocrine Endocrine: Reports weight change - Hematologic/Lymphatic Comment: none - Allergic/Immunologic codiene Objective - Exam BMI 25.8 - Constitutional General appearance: Present: cooperative - EENT ENT: Present: hearing grossly normal - Neck Neck: Present: normal ROM - Respiratory Respiratory: bilateral: CTA - Cardiovascular Rhythm: regular Heart sounds: normal: S1, S2 - Gastrointestinal General gastrointestinal: Present: soft - Integumentary Integumentary: Present: normal turgor - Musculoskeletal Musculoskeletal: Present: gait normal - Psychiatric Psychiatric: Present: A&O x's 3, appropriate affect, intact judgment & insight - Additional findings Additional findings: Breast Exam: BRA: 36A inspection: Asymmetry related to prior right breast surgery, well-healed scar right breast Palpation: Right breast: Multiple positional exam fibrocystic changes well-healed scar with no dominant masses or nodules of concern radiation and surgical changes Right axilla: No adenopathy of concern Left breast: POSITIONAL exam no dominant masses or nodules of concern Left axilla: No adenopathy of concern Under both breasts there are fungal infection changes greater under the right Assessment and Plan Assessment: Impression: 1. Patient status post right breast lumpectomy and radiation therapy for a T2 N0 M0 ER/OH positive HER-2/kapil negative G2 invasive ductal carcinoma no evidence of recurrence 2. Fungal infection of both breast greater on the right than the left 3. Patient with recent onset of right flank Plan: 1. Patient is having a CAT scan done to evaluate right flank pain 2. Patient scheduled for colonoscopy 3. Prescription given for nystatin 4. Patient presently on Femara will continue this 5. Repeat bilateral mammogram in 1 year with physician exam 6. Follow-up here in 6 months CC: Dr. Be
== END | disposition home or self-care (01) ==
LOC: WWCWWP 14:51
PROVIDERS: ATTEND Surgery
DX: Z53.9 Procedure and treatment not carried out, unspecified reason (principal)

== ENCOUNTER → 2022-03-26 | Outpatient (CLI) | payer MEDICARE ==
[2022-03-26 14:09] VITALS: BP 144/78; PULSE 60; RESP 16; TEMP 98.1
--- NOTE | 2022-03-26 14:32 | P.PN ---
Subjective Progress Note Date: 03/26/22 Principal diagnosis: stage IB invasive ductal cancer, [id number]+Pr+Her2-G2 [id number]+Pr+Her2-G2 stage IB right breast cancer This is a 76-year-old white female status post bilateral mammogram performed on 05-25-21. On that evaluation she was noted to have a 10 x 5 mm lesion in the right breast approximately 5 cm from the nipple. The patient did not have any lesions of concern noted in the left breast. She subsequently underwent an ultrasound of the right breast on which revealed a 22 x 20 mm lesion which was considered of concern in the right breast and an ultrasound-guided core biopsy was recommended. Her last mammogram prior to this one was about ten years ago. Patient had recently lost approximately 30 pounds and after that she felt some nodularity in her breast. Additionally she had some stabbing pains in the right breast in the upper-outer quadrant region. For this reason she sought radiographic evaluation. She had not had any trauma, infection, or prior surgery on either breast. She had an ultrasound core biopsy on 04-17-20. Pathology from this revealed a grade 2 invasive ductal carcinoma. She underwent a right breast [place] [id number]. This was for a T2 N0 M0 ER/MI positive HER-2 negative G2 lesion. The patient post procedure did develop a seroma which drained and the wound opened spontaneously. Cultures were obtained which showed no growth. She completed 5 cycles of radiation therapy. Report from Dr. Conrad was [place] [id number]. She is presently on Femara. She is tolerating this well. She is not complaining of any new lumps masses or nodules in either breast. Note from 09-28-[address] Andrade reviewed radiation oncology note 01-11-[address] Conrad reviewed medical oncology The patient is not complaining of any lumps masses or nodules of concern in either breast. The patient had a bilateral mammogram at [facility] on we are awaiting those results Family History: 1. mother: colon Hormonal History: menarche: 14 , breast fed: no, age at : 27 menopause: hysterectomy at 40, left ovaries for cervical cancer BCP; none hormones: patch for about 1 year Past Surgical History: 1. hysterectomy 2. appendectomy Medical History: Invega to help sleep urinary urgency scheduled to have a colonoscopy done next week Social History: smoke: none/ stopped several years ago alcohol: none drugs: none - Constitutional Constitutional: Denies chills, Denies fever - EENT Eyes: denies blurred vision, denies pain Ears: deny: decreased hearing, tinnitus Ears, nose, mouth and throat: Denies headache, Denies sore throat - Breasts Breasts: bilateral: as per HPI - Cardiovascular Cardiovascular: Denies chest pain, Denies shortness of breath - Respiratory Respiratory: Denies cough - Gastrointestinal Gastrointestinal: Denies abdominal pain, Denies diarrhea, Denies nausea, Denies vomiting - Genitourinary (Female) Genitourinary: Reports urgency, Denies dysuria, Denies hematuria - Menstruation Menstruation: Reports post hysterectomy - Musculoskeletal Musculoskeletal: Denies myalgias - Integumentary Comment: rash on back resolving Integumentary: Reports rash, Denies pruritus - Neurological Neurological: Denies numbness, Denies weakness - Psychiatric Comment: difficulty sleeping treated with a medication used for schizophrenia - Endocrine Endocrine: Reports weight change - Hematologic/Lymphatic Comment: none - Allergic/Immunologic codiene Objective - Vital Signs Vital signs: Vital Signs Temp 98.1 F 03/26/22 14:06 Pulse 60 03/26/22 14:06 Resp 16 03/26/22 14:06 BP 144/78 03/26/22 14:06 Pulse Ox 97 03/26/22 14:06 Intake & Output 03/25/22 03/26/22 03/26/22 18:59 06:59 18:59 Weight 72.575 kg - Exam BMI: 25.8 - Constitutional General appearance: Present: cooperative - EENT Eyes: Present: EOMI - Neck Neck: Present: normal ROM - Respiratory Respiratory: bilateral: CTA - Cardiovascular Heart sounds: normal: S1, S2 - Integumentary Integumentary: Present: normal turgor - Psychiatric Psychiatric: Present: A&O x's 3, appropriate affect, intact judgment & insight - Additional findings Additional findings: Breast Exam: BRA: 36A inspection: asymmetry due to prior surgery, well healed scar right breast palpation: right breast: Postoperative changes, multi-positional exam no dominant masses or nodules of concern Right axilla: No adenopathy of concern Left breast: Multi-positional exam no dominant masses or nodules of concern Left axilla: No adenopathy of concern patient has fungal infection under both breast Assessment and Plan Assessment: Impression: Patient status post right breast lumpectomy and radiation therapy on 06-24-20; she completed 5 cycles of radiation therapy She is presently on Femora she did not have any chemotherapy Plan: Obtain results of mammogram from [place] [id number] Continue Femara Follow-up here in 6 months CC: Dr. Be
== END | disposition home or self-care (01) ==
LOC: WWCWWP 14:02
PROVIDERS: ATTEND Surgery
DX: Z53.9 Procedure and treatment not carried out, unspecified reason (principal)

== ENCOUNTER → 2022-11-11 | Outpatient (CLI) | payer MEDICARE ==
[2022-11-11 15:36] VITALS: BP 116/61; PULSE 63; RESP 18; TEMP 97.8
--- NOTE | 2022-11-11 15:41 | P.PN ---
Subjective Progress Note Date: 11/11/22 stage IB invasive right breast ductal cancer, [id number]+Her2-G2 This is a 76-year-old white female status post bilateral mammogram performed on 05-25-21. On that evaluation she was noted to have a 10 x 5 mm lesion in the right breast approximately 5 cm from the nipple. The patient did not have any lesions of concern noted in the left breast. She subsequently [place] [id number] which revealed a 22 x 20 mm lesion which was considered of concern in the right breast and an ultrasound-guided core biopsy was recommended. Her last mammogram prior to this one was about ten years ago. Patient had recently lost approximately 30 pounds and after that she felt s ome nodularity in her breast. Additionally she had some stabbing pains in the right breast in the upper-outer quadrant region. For this reason she sought radiographic evaluation. She had not had any trauma, infection, or prior surgery on either breast. She had an ultrasound core biopsy on 04-17-20. Pathology from this revealed a grade 2 invasive ductal carcinoma. She underwent a right breast [place] [id number]. This was for a T2 N0 M0 ER/UT positive HER-2 negative G2 lesion. The patient post procedure did develop a seroma which drained and the wound opened spontaneously. Cultures were obtained which showed no growth. She completed 5 cycles of radiation therapy. Report from Dr. Conrad [place] [id number]. She is presently on Femara. She is tolerating this well. She is not complaining of any new lumps masses or nodules in either breast. Note from 09-28-[address] Andrade reviewed radiation oncology note 01-11-[address] Conrad reviewed medical oncology The patient is not complaining of any lumps masses or nodules of concern in either breast. The patient had a bilateral mammogram at [facility] on we are awaiting those results 11-11-22 She is not complaining of any lumps masses or nodules in her breast. Her last mammogram was in [place] in December 2021. This was BIRAD 2. The patient is on Femara. She did not have any chemotherapy. She completed radiation therapy. Family History: 1. mother: colon Hormonal History: menarche: 14 , breast fed: no, age at : 27 menopause: hysterectomy at 40, left ovaries for cervical cancer BCP; none hormones: patch for about 1 year Past Surgical History: 1. hysterectomy 2. appendectomy Medical History: Invega to help sleep urinary urgency scheduled to have a colonoscopy done next week fracture lower back Social History: smoke: none/ stopped several years ago alcohol: none drugs: none - Constitutional Constitutional: Denies chills, Denies fever - EENT Eyes: denies blurred vision, denies pain Ears: deny: decreased hearing, tinnitus Ears, nose, mouth and throat: Denies headache, Denies sore throat - Breasts Breasts: bilateral: as per HPI - Cardiovascular Cardiovascular: Denies chest pain, Denies shortness of breath - Respiratory Respiratory: Denies cough - Gastrointestinal Gastrointestinal: Denies abdominal pain, Denies diarrhea, Denies nausea, Denies vomiting - Genitourinary (Female) Genitourinary: Reports urgency, Denies dysuria, Denies hematuria - Menstruation Menstruation: Reports post hysterectomy - Musculoskeletal Musculoskeletal: Denies myalgias - Integumentary Comment: rash on back resolving Integumentary: Reports rash, Denies pruritus - Neurological Neurological: Denies numbness, Denies weakness - Psychiatric Comment: difficulty sleeping treated with a medication used for schizophrenia - Endocrine Endocrine: Reports weight change - Hematologic/Lymphatic Comment: none - Allergic/Immunologic codiene Objective - Vital Signs Vital signs: Intake & Output 11/10/22 11/11/22 11/11/22 18:59 06:59 18:59 Weight 61.235 kg - Constitutional General appearance: Present: cooperative - EENT Eyes: Present: EOMI ENT: Present: hearing grossly normal - Neck Neck: Present: normal ROM - Respiratory Respiratory: bilateral: CTA - Cardiovascular Heart sounds: normal: S1, S2 - Integumentary Integumentary: Present: normal turgor - Musculoskeletal Musculoskeletal: Present: gait normal - Psychiatric Psychiatric: Present: A&O x's 3, appropriate affect, intact judgment & insight - Additional findings Additional findings: Breast Exam: BRA: 36A inspection: asymmetry due to prior surgery, well healed scar right breast palpation: right breast: Postoperative changes, multi-positional exam no dominant masses or nodules of concern Right axilla: No adenopathy of concern Left breast: Multi-positional exam no dominant masses or nodules of concern Left axilla: No adenopathy of concern Assessment and Plan Assessment: Impression: Invega to help sleep urinary urgency scheduled to have a colonoscopy done next week fracture lower back Status post right breast lumpectomy/radiation therapy for invasive ductal carcinoma no evidence of recurrence presently on Femara Plan: Patient is a bilateral mammogram 2022 with appointment at that time Continue to follow with medical oncology Continue to follow with radiation oncology CC: DR. Be
== END ==
LOC: WWCWWP 15:25
PROVIDERS: ATTEND Surgery
DX: Z90.11 Acquired absence of right breast and nipple (principal); R39.15 Urgency of urination; S32.009A Unspecified fracture of unspecified lumbar vertebra, initial encounter for closed fracture; Z92.3 Personal history of irradiation; Z88.5 Allergy status to narcotic agent; Z87.891 Personal history of nicotine dependence

== ENCOUNTER → 2022-11-11 | Outpatient (CLI) | payer MEDICARE | END | disposition home or self-care (01) | LOC: LABWHC1 15:47 | PROVIDERS: ATTEND Family Medicine | DX: R73.9 Hyperglycemia, unspecified (principal) | CPT/HCPCS: 36415; 83036; 83525 ==